=== PATIENT | male | born 1945 | race Caucasian/White ===

== ENCOUNTER 2019-06-11 12:49 | Outpatient (CLI) | payer MEDICARE, BC ==
[2019-06-11 13:08] LABS: BASOPHILS % (AUTO) 0.2 %; EOSINOPHILS # (AUTO) 0.4 10^3/uL (0.0-0.7); LYMPHOCYTES # (AUTO) 0.8 10^3/uL (1.5-3.5); LYMPHOCYTES % (AUTO) 18.2 %; MEAN CORPUSCULAR HEMOGLOBIN 28.9 pg (27.0-31.0); MEAN CORPUSCULAR HGB CONC 31.8 g/dL (32.0-36.0); MEAN CORPUSCULAR VOLUME 91.1 fL (80.0-94.0); MEAN PLATELET VOLUME 12.4 fL (7.4-11.4); MONOCYTES # (AUTO) 0.6 10^3/uL (0.0-1.0); MONOCYTES % (AUTO) 13.6 %; NEUTROPHILS # (AUTO) 2.4 10^3/uL (1.5-6.6); NEUTROPHILS % (AUTO) 57.3 %; PLT - PLATELET COUNT 135 10^3/uL (130-450); RED CELL DISTRIBUTION WIDTH 19.4 % (12.0-15.0); WHITE BLOOD COUNT 4.1 x10^3/uL (4.8-10.8)
[2019-06-11 13:50] LABS: ALBUMIN 3.7 g/dL (3.2-5.5); ALBUMIN/GLOBULIN RATIO 1.5 (1.0-2.2); BILIRUBIN,TOTAL 1.2 mg/dL (0.2-1.0); CALCIUM 8.5 mg/dL (8.5-10.3); CREATININE 1.2 mg/dL (0.6-1.2); TOTAL PROTEIN 6.1 g/dL (6.7-8.2)
[2019-06-13 15:30] LABS: ALBUMIN 3.4 g/dL (3.8-4.8); ALPHA 1 GLOBULIN 0.3 g/dL (0.2-0.3); ALPHA 2 GLOBULIN 0.8 g/dL (0.5-0.9); BETA 1 GLOBULIN 0.5 g/dL (0.4-0.6); BETA 2 GLOBULIN 0.4 g/dL (0.2-0.5); GAMMA GLOBULIN 0.2 g/dL (0.8-1.7)
== END 2019-06-11 12:50 | disposition home or self-care (01) ==
LOC: LAB 12:49
PROVIDERS: ATTEND Internal Medicine
DX: C90.00 Multiple myeloma not having achieved remission (principal)
CPT/HCPCS: 36415; 80053; 82784; 83883; 84155; 84165; 85025

== ENCOUNTER 2021-11-22 11:51 | Emergency (ER) | payer MEDICARE, BC ==
[2021-11-22] MEDS ORDERED: SODIUM CHLORIDE 0.9% 1,000 ML IV STA (11:55)
--- NOTE | 2021-11-22 11:55 | ED Physician Documentation ---
PD HPI SYNCOPE - Stated complaint Stated Complaint: SYNCOPL EPISODE - History obtained from History obtained from: Patient, Family - Additional information Additional information: 76-year-old gentleman with history of colon cancer in remission and active multiple myeloma on chemotherapy with bortezomib, daratumumab and hyaluronidase presents after a syncopal episode. He last got chemo 2 days ago and was over at the [facility] clinic for hydration for hypercalcemia. He was in the chair and passed out briefly. He came to and feels fine. There is no associated headache, shortness of breath, or chest pain. He was hypotensive to 79/46 at the [facility] clinic. He was not tachycardic. It was not associated with his IV placement. Review of Systems Ten Systems: 10 systems reviewed and negative Constitutional: reports: Fatigue, Weight Loss Cardiac: denies: Chest pain / pressure, Palpitations Respiratory: denies: Dyspnea, Cough GI: denies: Abdominal Pain, Nausea, Vomiting, Diarrhea PD PAST MEDICAL HISTORY - Past Medical History Cardiovascular: None Respiratory: None Neuro: None Endocrine/Autoimmune: None GI: None : None Psych: None Musculoskeletal: None Derm: None - Past Surgical History Ortho: Spine surgery - Present Medications Home Medications: Ambulatory Orders Medication Instructions Recorded Confirmed OLANZapine [Zyprexa] 5 mg PO HS 11/14/20 11/16/21 Potassium Chloride [K-Dur] 40 meq PO DAILY #14 tab 11/25/20 11/16/21 Valacyclovir HCl [Valtrex] 1 tab PO BID 11/14/21 11/16/21 Cyclobenzaprine [Flexeril] 10 mg PO TID PRN #20 tablet 11/22/21 - Allergies Allergies/Adverse Reactions: Allergies Allergy/AdvReac Type Severity Reaction Status Date / Time shellfish derived Allergy Unknown Verified 11/22/21 12:09 - Social History Smoking Status: Former smoker PD ED PE NORMAL - Vitals Vital signs reviewed: Yes - General General: Alert and oriented X 3, Other (Pale with alopecia) - HEENT HEENT: PERRL, EOMI - Neck Neck: Supple, no meningeal sign, No bony TTP - Cardiac Cardiac: RRR, No murmur - Respiratory Respiratory: No respiratory distress, Clear bilaterally - Abdomen Abdomen: Normal bowel sounds, Soft, Non tender - Back Back: No CVA TTP, No spinal TTP - Derm Derm: Normal color, Warm and dry - Extremities Extremities: No edema, No calf tenderness / cord - Neuro Neuro: Alert and oriented X 3, Normal speech Eye Opening: Spontaneous Motor: Obeys Commands Verbal: Oriented GCS Score: 15 Results - Vitals Vitals: Vital Signs - 24 hr 11/22/21 11/22/21 12:02 12:38 Temperature 36.6 C 36.5 C Heart Rate 88 87 Respiratory 16 14 Rate Blood Pressure 131/85 H 151/74 H O2 Saturation 100 98 Oxygen O2 Source Room air - EKG (time done) 1215 Rate: Rate (enter#) (76) Rhythm: NSR Red [place]: Normal Intervals: Normal WI, Wide QRS (borderline IVCD QRSD 114) QRS: Normal Ischemia: Normal ST segments - Labs Labs: Laboratory Tests 11/22/21 11/22/21 11/22/21 12:05 12:05 12:05 WBC 7.3 RBC 2.49 L Hgb 8.1 L Hct 23.5 L MCV 94.4 H MCH 32.5 H MCHC 34.5 RDW 18.3 H Plt Count 111 L MPV 9.3 Neut # (Auto) Not Reportable Lymph # (Auto) Not Reportable [place] # (Auto) Not Reportable Eos # (Auto) Not Reportable Baso # (Auto) Not Reportable Absolute Nucleated RBC Not Reportable Total Counted 100 Band Neuts % (Manual) 10 Abnorm Lymph % (Manual) 0 Metamyelocytes % 5 H Myelocytes % 9 H Nucleated RBC % Not Reportable Neutrophils # (Manual) 4.9 Lymphocytes # (Manual) 0.2 L Monocytes # (Manual) 1.2 H Eosinophils # (Manual) 0.0 Basophils # (Manual) 0.0 Nucleated RBCs 1 Differential Comment MANUAL DIFFERENTIAL Manual Slide Review Indicated Sodium 136 Potassium 3.6 Chloride 101 Carbon Dioxide 26 Anion Gap 9.0 BUN 31 H Creatinine 1.5 H Estimated GFR (MDRD) 45 L Glucose 124 H POC Whole Bld Glucose 123 H Calcium 11.6 H Magnesium 1.7 Total Bilirubin 0.5 AST 47 H ALT 12 Alkaline Phosphatase 96 Total Protein 6.3 L Albumin 3.5 Globulin 2.8 Albumin/Globulin Ratio 1.3 PD MEDICAL DECISION MAKING - ED course ED course: 76-year-old gentleman presents after syncopal episode while getting hydrated at the [facility] clinic for hypercalcemia related to multiple myeloma. He was hypotensive there but this was not corroborated here. Relatively unremarkable EKG. His H&H is dropping, likely from chemo. He has not had any stool changes except for constipation which she is treating at home. He has an appointment for repeat labs, Saturday which I think is appropriate. He is having a lot of back pain, he takes an occasional Percocet for that but tries to avoid it given the ongoing constipation. He already had reportedly negative x-rays per the . Will add Flexeril. Departure - Departure Disposition: Home, Self Care Clinical Impression: Syncope, Transient hypotension Condition: Good Record reviewed to determine appropriate education?: Yes Instructions: ED Fainting Unkn Cause Prescriptions: Cyclobenzaprine [Flexeril] 10 mg PO TID PRN #20 tablet PRN Reason: Spasms Comments: I sent your prescription electronically to the [facility] pharmacy here at the corner of [address] and [address] in the [facility]. Return for new or worsening symptoms. Repeat labs and oncology visit Saturday as per routine. Discharge Date/Time: 11/22/21 13:35
[2021-11-22 12:08] LABS: BASOPHILS % (AUTO) 0.3 %; EOSINOPHILS % (AUTO) 0.3 %; HCT - HEMATOCRIT 23.5 % (42.0-52.0); HGB - HEMOGLOBIN 8.1 g/dL (14.0-18.0); LYMPHOCYTES % (AUTO) 10.1 %; MEAN CORPUSCULAR HEMOGLOBIN 32.5 pg (27.0-31.0); MEAN CORPUSCULAR HGB CONC 34.5 g/dL (32.0-36.0); MEAN CORPUSCULAR VOLUME 94.4 fL (80.0-94.0); MEAN PLATELET VOLUME 9.3 fL (7.4-11.4); MONOCYTES % (AUTO) 16.8 %; NEUTROPHILS % (AUTO) 63.9 %; PLT - PLATELET COUNT 111 10^3/uL (130-450); RED BLOOD COUNT 2.49 10^6/uL (4.70-6.10); RED CELL DISTRIBUTION WIDTH 18.3 % (12.0-15.0); WHITE BLOOD COUNT 7.3 x10^3/uL (4.8-10.8)
[2021-11-22 12:12] LABS: SLIDE REVIEW? Indicated
[2021-11-22 12:21] LABS: ALBUMIN 3.5 g/dL (3.2-5.5); ALBUMIN/GLOBULIN RATIO 1.3 (1.0-2.2); BILIRUBIN,TOTAL 0.5 mg/dL (0.2-1.0); CALCIUM 11.6 mg/dL (8.5-10.3); CREATININE 1.5 mg/dL (0.6-1.2); MAGNESIUM 1.7 mg/dL (1.7-2.8); POTASSIUM 3.6 mmol/L (3.5-5.0); TOTAL PROTEIN 6.3 g/dL (6.7-8.2)
[2021-11-22 12:43] LABS: ABNORMAL LYMPHS % (MANUAL) 0 %
[2021-11-22 12:45] LABS: BAND NEUTROPHILS % (MANUAL) 10 %; DIFFERENTIAL COMMENT MANUAL DIFFERENTIAL; LYMPHOCYTES # (MANUAL) 0.2 10^3/uL (1.5-3.5); LYMPHOCYTES % (MANUAL) 3 %; METAMYELOCYTES % (MANUAL) 5 %; MONOCYTES # (MANUAL) 1.2 10^3/uL (0.0-1.0); MYELOCYTES % (MANUAL) 9 %; NEUTROPHILS # (MANUAL) 4.9 10^3/uL (1.5-6.6); NUCLEATED RBC (MANUAL) 1 %
[2021-11-22 12:48] VITALS: BP 151/74
== END 2021-11-22 13:35 | disposition home or self-care (01) ==
LOC: ED 11:51
DX: I95.89 Other hypotension (principal); R55 Syncope and collapse; Z87.891 Personal history of nicotine dependence
CPT/HCPCS: 36415; 80053; 83735; 85025; 93005; 96360; 99283

== ENCOUNTER 2021-12-04 18:57 | Inpatient (IN) | payer MEDICARE, BC ==
[2021-12-04] MEDS ORDERED: SODIUM CHLORIDE 0.9% 1,000 ML IV STA (19:11)
[2021-12-04 19:29] LABS: BASOPHILS % (AUTO) 0.6 %; EOSINOPHILS # (AUTO) 0.1 10^3/uL (0.0-0.7); HCT - HEMATOCRIT 24.1 % (42.0-52.0); HGB - HEMOGLOBIN 8.2 g/dL (14.0-18.0); LYMPHOCYTES # (AUTO) 1.1 10^3/uL (1.5-3.5); LYMPHOCYTES % (AUTO) 21.7 %; MEAN CORPUSCULAR HEMOGLOBIN 31.4 pg (27.0-31.0); MEAN CORPUSCULAR VOLUME 92.3 fL (80.0-94.0); MEAN PLATELET VOLUME 10.7 fL (7.4-11.4); MONOCYTES # (AUTO) 0.6 10^3/uL (0.0-1.0); MONOCYTES % (AUTO) 12.2 %; NEUTROPHILS # (AUTO) 2.8 10^3/uL (1.5-6.6); NRBC ABSOLUTE COUNT (AUTO) 0.02 x10^3/uL; NUCLEATED RED BLOOD CELLS AUTO 0.4 /100WBC; RED BLOOD COUNT 2.61 10^6/uL (4.70-6.10); RED CELL DISTRIBUTION WIDTH 17.7 % (12.0-15.0); WHITE BLOOD COUNT 5.3 x10^3/uL (4.8-10.8)
[2021-12-04 19:39] LABS: PLT - PLATELET COUNT 26 10^3/uL (130-450)
[2021-12-04 19:41] LABS: ALBUMIN 3.5 g/dL (3.2-5.5); BILIRUBIN,TOTAL 0.5 mg/dL (0.2-1.0); MAGNESIUM 2.5 mg/dL (1.7-2.8); POTASSIUM 4.8 mmol/L (3.5-5.0); TOTAL PROTEIN 6.9 g/dL (6.7-8.2)
[2021-12-04 19:43] LABS: CALCIUM 13.4 mg/dL (8.5-10.3)
[2021-12-04 19:56] LABS: SLIDE REVIEW? Indicated
[2021-12-04 20:11] LABS: DIFFERENTIAL COMMENT MANUAL=AUTO DIFF; PLATELET ESTIMATE, MANUAL DECREASED (<130,000) (NORMAL); PLATELET MORPHOLOGY NORMAL APPEARANCE (NORMAL)
--- NOTE | 2021-12-04 20:17 | ED Physician Documentation ---
History of Present Illness - Stated complaint Stated Complaint: HIGH CALCIUM,DEHYDRATED - Chief complaint Chief Complaint: General - History obtained from History obtained from: Patient - Additonal information Additional information: He has a history of multiple myeloma with recurrence, and is on daratumumab and Velcade. He has had troubles with hypercalcemia and thrombocytopenia and had labs done today and was referred here for elevated creatinine to 2.1 and calcium to 14. He already did get a liter of IV fluids in the clinic. He has been having ongoing back pain and there is still concern for that. Given his blood work earlier in the day he was referred here for further evaluation and treatment. His mentation has been pretty normal per the . The ongoing back pain is in the mid thoracic and upper lumbar spine and left ribs, worse with motion. Review of Systems Ten Systems: 10 systems reviewed and negative Constitutional: reports: Fatigue, Weight Loss Throat: denies: Sore throat Cardiac: denies: Chest pain / pressure, Palpitations Respiratory: denies: Dyspnea, Cough PD PAST MEDICAL HISTORY - Past Medical History Past Medical History: Yes Cardiovascular: None Respiratory: None Neuro: None Endocrine/Autoimmune: None GI: None : None Psych: None Musculoskeletal: None Derm: None Other Past Medical History: multiple myeloma - Past Surgical History Past Surgical History: Yes Ortho: Spine surgery - Present Medications Home Medications: Ambulatory Orders Medication Instructions Recorded Confirmed OLANZapine [Zyprexa] 5 mg PO HS 11/14/20 12/04/21 Potassium Chloride [K-Dur] 40 meq PO DAILY #14 tab 11/25/20 12/04/21 Valacyclovir HCl [Valtrex] 1 tab PO BID 11/14/21 12/04/21 Cyclobenzaprine [Flexeril] 10 mg PO TID PRN #20 tablet 11/22/21 12/04/21 oxyCODONE [Roxicodone] 5 mg PO Q6H PRN 15 Days #60 tablet 11/27/21 12/04/21 - Allergies Allergies/Adverse Reactions: Allergies Allergy/AdvReac Type Severity Reaction Status Date / Time No Known Drug Allergies Allergy Verified 12/04/21 19:29 - Social History Does the pt smoke?: No Smoking Status: Never smoker PD ED PE NORMAL - Vitals Vital signs reviewed: Yes - General General: Alert and oriented X 3, No acute distress - HEENT HEENT: PERRL, EOMI - Neck Neck: Supple, no meningeal sign, No bony TTP - Cardiac Cardiac: Other (Tachycardic but regular without murmur) - Respiratory Respiratory: No respiratory distress, Clear bilaterally - Abdomen Abdomen: Normal bowel sounds, Soft, Non tender - Back Back: No CVA TTP, Other (Tender to the lower thoracic and upper lumbar spine and left lower ribs) - Derm Derm: Normal color, Warm and dry - Extremities Extremities: No edema, No calf tenderness / cord - Neuro Neuro: Alert and oriented X 3, Normal speech Results - Vitals Vitals: Vital Signs - 24 hr 12/04/21 12/04/21 12/04/21 19:04 19:58 21:12 Temperature 37.1 C Heart Rate 114 H 105 H 110 H Respiratory 14 16 15 Rate Blood Pressure 127/58 L 134/68 H 143/85 H O2 Saturation 97 96 98 Oxygen O2 Source Room air - Labs Labs: Laboratory Tests 12/04/21 12/04/21 19:25 19:25 WBC 5.3 RBC 2.61 L Hgb 8.2 L Hct 24.1 L MCV 92.3 MCH 31.4 H MCHC 34.0 RDW 17.7 H Plt Count 26 L* MPV 10.7 Neut # (Auto) 2.8 Lymph # (Auto) 1.1 L [place] # (Auto) 0.6 Eos # (Auto) 0.1 Baso # (Auto) 0.0 Absolute Nucleated RBC 0.02 Band Neuts % (Manual) Not Reportable Abnorm Lymph % (Manual) Not Reportable Nucleated RBC % 0.4 Neutrophils # (Manual) Not Reportable Lymphocytes # (Manual) Not Reportable Monocytes # (Manual) Not Reportable Eosinophils # (Manual) Not Reportable Basophils # (Manual) Not Reportable Differential Comment MANUAL=AUTO DIFF Manual Slide Review Indicated Platelet Estimate DECREASED (<130,000) Platelet Morphology NORMAL APPEARANCE RBC Morph Micro Appear 1+ HYPOCHROMASIA Sodium 137 Potassium 4.8 Chloride 101 Carbon Dioxide 24 Anion Gap 12.0 BUN 34 H Creatinine 2.0 H Estimated GFR (MDRD) 32 L Glucose 225 H Calcium 13.4 H* Magnesium 2.5 Total Bilirubin 0.5 AST 62 H ALT 15 Alkaline Phosphatase 63 Total Protein 6.9 Albumin 3.5 Globulin 3.4 Albumin/Globulin Ratio 1.0 PD MEDICAL DECISION MAKING - ED course ED course: 76-year-old gentleman with multiple myeloma presents with outpatient labs with severe hypercalcemia although he is not too symptomatic from it. He was hydrated here and given the abnormalities he will be placed in observation for repeat labs and continued hydration. Spoke with Dr. Bray for this at 9:50 PM. Of note the patient is having ongoing back and rib pain and his oncologist had ordered CTs to evaluate but they were unable to get it scheduled and these were done with results pending on admission. Departure - Departure Disposition: ED Place in Observation Clinical Impression: Hypercalcemia, LANCE (acute kidney injury), Rib pain on left side, Back pain Multiple myeloma Qualifiers: Multiple myeloma remission status: in relapse Qualified Code(s): C90.02 - Multiple myeloma in relapse Condition: Serious Discharge Date/Time: 12/04/21 22:50
[2021-12-04] MEDS ORDERED: ACETAMINOPHEN 325 MG TABLET PO PRN (21:49)
[2021-12-04] MEDS ORDERED: ONDANSETRON 4 MG/2 ML VIAL IVP PRN (21:49)
[2021-12-04] MEDS ORDERED: ONDANSETRON ODT 4 MG TABLET TL PRN (21:49)
[2021-12-04] MEDS ORDERED: SODIUM CHLORIDE FLUSH 0.9% 10 ML SYRINGE IVP PRN (21:49)
--- NOTE | 2021-12-04 22:00 | HISTORY & PHYSICAL EXAMINATION ---
Chief Complaint - Chief Complaint Chief Complaint: Back pain History of Present Illness - Admitted From Admitted From:: Home - History Obtained From Records Reviewed: [facility] History obtained from: Patient, ER Physician, EMR - History of Present Illness HPI Comment/Other: Patient is a 76-year-old male with a past medical history significant for mul tiple myeloma in relapse, history of colon cancer in remission who presents today complaining of back pain and due to abnormal labs. He states he has had back pain now for the past week and he started taking oxycodone but has only been using this 1-2 times a day as he does not want potential side effects of narcotics. He states he has since begun to take it every 6 hours and his pain is much better controlled. He states his pain is predominantly in his lower back and around his bilateral ribs. He reports no numbness in his lower extremities. He has had prior surgical interventions in his spine due to the myeloma. He states he was contacted by his oncologist today due to abnormal labs and was told to come to the emergency department and to obtain further imaging due to his back pain to look for metastatic disease. The patient had relapse of his myeloma about 2 months ago when he was in [place] which is where he lives during the winter. He was hospitalized during that time due to acute kidney injury and concern for a pelvic abscess that required drainage. He now follows with Dr. Ortiz here at the [facility]. He is currently receiving treatment with DVd. Treatment was held today except for the Decadron because of thrombocytopenia which is relatively new over the past month. The patient has noticed some bruising in his left arm after an IV attempt recently but otherwise has not had any bleeding. He denies any hematuria, blood in his stool or mucosal bleeding. He states he generally feels okay today compared to the last few days given his pain is better controlled. Here in the Emergency Department, was noted his creatinine was elevated at 2.0 compared to his baseline of around 1.3. His calcium is also elevated at 13.4. He is anemic with a hemoglobin of 8.2 and his platelet count is in the 20s. He was given a liter of IV fluids. Given the acute kidney injury and hypercalcemia, medicine was consulted for admission. We discussed goals of care and he would like to be a full code at this time until he can discuss his prognosis further with his oncologist. History - Past Medical History Cardiovascular: reports: None Respiratory: reports: None Neuro: reports: None Endocrine/Autoimmune: reports: None GI: reports: Other (History of colon cancer status post hemicolectomy and chemotherapy. Now in remission.) : reports: None Psych: reports: None Musculoskeletal: reports: None Derm: reports: None MRSA Hx?: No Other Past Medical History: Relapsed multiple myeloma - Past Surgical History Ortho: reports: Spine surgery - Family & Social History Family History Comment/Other: He reports his mother was relatively healthy although she had a diagnosis of cancer late in her life. She at 97. Meds/Allgy - Home Medications Home Medications: Ambulatory Orders Medication Instructions Recorded Confirmed OLANZapine [Zyprexa] 5 mg PO HS 11/14/20 12/04/21 Potassium Chloride [K-Dur] 40 meq PO DAILY #14 tab 11/25/20 12/04/21 Valacyclovir HCl [Valtrex] 1 tab PO BID 11/14/21 12/04/21 Cyclobenzaprine [Flexeril] 10 mg PO TID PRN #20 tablet 11/22/21 12/04/21 oxyCODONE [Roxicodone] 5 mg PO Q6H PRN 15 Days #60 tablet 11/27/21 12/04/21 - Allergies Allergies/Adverse Reactions: Allergies Allergy/AdvReac Type Severity Reaction Status Date / Time No Known Drug Allergies Allergy Verified 12/04/21 19:29 Review of Systems - Constitutional Constitutional: reports: Fatigue, Poor appetite. denies: Fever, Chills - Ears, Nose & Throat Ears, Nose & Throat: denies: Nasal discharge, Nasal congestion - Cardiovascular Cariovascular: denies: Chest pain, Edema, Exertional dyspnea, Decr. exercise tolerance - Respiratory Respiratory: denies: Cough, SOB at rest, SOB with exertion - Gastrointestinal Gastrointestinal: reports: Constipation. denies: Abdominal pain, Diarrhea, Change in bowel habits, Black stools, Bloody stools, Nausea, Vomiting - Genitourinary Genitourinary: denies: Dysuria, Frequency, Urgency, Hematuria - Musculoskeletal Musculoskeletal: reports: Back pain, Joint pain. denies: Limited range of motion, Muscle weakness - Integumentary Integumentary: denies: Rash - Neurological Neurological: denies: Focal weakness, Numbness - Hematologic/Lymphatic Hematologic/Lymphatic: reports: Anemia, Bruising. denies: Bleeding tendencies Prior Level of Functionality: He is independent with his ADLs. Exam - Vital Signs Reviewed Vital Signs: Yes Vital Signs: Vital Signs x48h Temp Pulse Resp BP Pulse Ox 12/04/21 21:12 110 H 15 143/85 H 98 12/04/21 19:58 105 H 16 134/68 H 96 12/04/21 19:04 37.1 C 114 H 14 127/58 L 97 - Physical Exam General Appearance: positive: No acute distress, Alert Eyes Bilateral: positive: Normal inspection, Other (Conjuctival pallor) ENT: positive: Dry mucous membranes. negative: No signs of dehydration Respiratory: positive: No respiratory distress. negative: Wheezes, Rales Cardiovascular: positive: Regular rate & rhythm, No murmur. negative: Tachycardia Abdomen: positive: Non-tender, No distention. negative: Tenderness Back: positive: Other (Prior surgical incisions noted. No lumbar spine tenderne ss.) Skin: positive: Warm, Dry, Other (2 small areas of ecchymosis over the left upper extremity inferior to the elbow) Extremities: positive: No pedal edema Neurologic/Psychiatric: positive: Other (No focal deficits). negative: Disoriented to person, Disoriented to place, Disoriented to time Conclusion/Plan - Problem List (1) Hypercalcemia Conclusion/Plan: He presents with hypercalcemia with a calcium of 13.4. This is secondary to multiple myeloma. He does have constipation and is fatigued. We will place in observation and start him on IV fluids. We will give him a dose of Zometa. Recheck BMP in the morning. Suspect as long as it is improving and he can likely be discharged home. We will not check PTH or vitamin D level as the hypercalcemia is due to the myeloma. If he needs further IV hydration then he may be made inpatient status. There is no need for diuretics at this time given and he appears hypervolemic on exam without evidence of edema. (2) Multiple myeloma Conclusion/Plan: He unfortunately has relapse of the multiple myeloma now presents with hypercalcemia and worsening rib and spine pain likely due to the myeloma. We we will treat his hypercalcemia as mentioned above. He will need continued outpatient follow-up with Dr. Ortiz on discharge. We discussed that I suspect his prognosis is poor and I recommended outpatient follow-up with palliative care for which he and his are agreeable to. Qualifiers: Multiple myeloma remission status: in relapse Qualified Code(s): C90.02 - Multiple myeloma in relapse (3) LANCE (acute kidney injury) Conclusion/Plan: His creatinine is elevated at 2.0. His baseline appears to be around 1.3 although his creatinine has been slowly increasing over the past. This is likely due to the hypercalcemia as well as the multiple myeloma. We will treat him with IV fluids and recheck renal function in the morning. We will check a renal ultrasound to evaluate for obstruction. Avoid nephrotoxins. (4) Back pain Conclusion/Plan: He has pain in his spine and ribs likely due to the myeloma. Imaging with a CT of the chest and lumbar spine has been ordered and is pending. We will manage h is pain with Tylenol and oxycodone as needed. (5) Colon cancer Conclusion/Plan: He has a history of colon cancer status post hemicolectomy and chemotherapy back in 2019. This is now in remission. Qualifiers: Colon location: unspecified part of colon Qualified Code(s): C18.9 - Malignant neoplasm of colon, unspecified (6) Anemia Conclusion/Plan: This is secondary to the multiple myeloma/anemia of chronic debase. His iron studies did not suggest iron deficiency and his ferritin was quite elevated. His hemoglobin is stable without evidence of bleeding. We will obtain a type and screen but we will transfuse for goal hemoglobin greater than 7. (7) Thrombocytopenia Conclusion/Plan: This is secondary to the myeloma and has been trending down over the past month. His platelet count today is 26. We will continue to monitor for evidence of bleeding and transfuse as needed. (8) Hyperglycemia Conclusion/Plan: His blood glucose is greater than 200. He denies history of diabetes. We will place him on a carb controlled diet and sliding scale. Check A1c. - Lab Results Lab results reviewed: Yes Fish Bones: 12/04/21 19:25 12/04/21 19:25 Core Measures - Anticipated LOS I expect patient to be DC'd or transferred within 96 hours.: Yes - Issues Hospital Issues and Management Plan: 76-year-old male with history of multiple myeloma that has relapsed presents with hypercalcemia and acute kidney injury. We will place in observation for IV fluids and zoledronic acid. - DVT/VTE - Prophylaxis VTE/DVT Device ordered at admit?: Yes VTE/DVT Prophylaxis med ordered at admit?: No Not Ordered - Medical Reason: Contraindicated
--- NOTE | 2021-12-04 22:53 | CT Report ---
PROCEDURE: CHEST WO INDICATIONS: Back and rib pain, multiple myeloma TECHNIQUE: Noncontrast 1mm axial images were acquired from the pulmonary apices to the posterior costophrenic an gles. Axial 5 mm soft tissue kernel reconstructions were performed as well as 8 mm axial MIP and cor onal and sagittal 5 mm reformations. For radiation dose reduction, the following was used: automate d exposure control, adjustment of mA and/or kV according to patient size. COMPARISON: Chest CT 01/30/2021. FINDINGS: Image quality: There is metallic streak artifact from patient's surgical hardware limiting evaluation . Lungs and pleura: There is dependent atelectasis bilaterally. No pleural effusions or pneumothorax. Central and peripheral airways are patent and normal in caliber. Mediastinum: Heart size is normal. No pericardial effusion. No mediastinal adenopathy by size crit eria. Thoracic aorta and central pulmonary arteries are normal in size. Esophagus is normal in [place]. No hiatal hernia. Bones and chest wall: Postsurgical changes are redemonstrated status post posterior fixation in the thoracic spine at T2-T8 with posterior fixation rods and bilateral pedicle screws. There is bone ceme nt within the T5 vertebral body. No acute fractures or subluxation. No new vertebral body compression fractures. Numerous lytic lesions are demonstrated throughout the visualized osseous structures cons istent with history of multiple myeloma. These include an expansile lesion with associated bony destr uction and the right posterior eighth rib with an associated extraosseous mass component measuring ap proximately 3.3 x 2.0 cm on series 3 image 47. This involves the right posterior chest wall with exte nsion along the posterior right lower lobe. No axillary or supraclavicular adenopathy by size criteri a. Abdomen: Visualized upper abdomen demonstrates a cystic lesion in the left upper quadrant likely rep resenting a partially visualized exophytic left renal cyst. IMPRESSION: 1. Expansile osseous lesion within the right posterior eighth rib with associated bony destruction an d an extraosseous soft tissue mass extending into the right posterior chest wall and along the right lower lobe. 2. Numerous lytic lesions demonstrated throughout the visualized osseous structures consistent with h istory of multiple myeloma. 3. Extensive postsurgical changes redemonstrated within the thoracic spine. No definite acute girish azeem fractures. Reviewed by: Jeffrey Balderrama MD on 12/04/2021 10:52 PM PDT Approved by: Jeffrey Balderrama MD on 12/04/2021 10:52 PM PDT Station ID: [id number]
--- NOTE | 2021-12-04 22:58 | CT Report ---
PROCEDURE: THORACIC SPINE WO INDICATIONS: multiple myeloma back pain TECHNIQUE: Noncontrast 2 mm thick sections acquired through the region of interest in the thoracic spine. Sagit darren and coronal reformats were then constructed. For radiation dose reduction, the following was used : automated exposure control, adjustment of mA and/or kV according to patient size. COMPARISON: Concurrent CT of the chest. FINDINGS: Image quality: There is metallic streak artifact from patient's surgical hardware. Bones: Postsurgical changes are redemonstrated status post posterior fixation at T2-T8 with posterior fixation rods and bilateral pedicle screws except at T5 where there is bone cement redemonstrated in the vertebral body. No definite acute vertebral compression fractures. Numerous lytic lesions are de monstrated throughout the visualized osseous structures consistent with history of multiple myeloma. There is an expansile destructive lesion in the right posterior eighth rib with an associated extraos seous mass components involving the right posterior chest wall. Soft tissues: No paravertebral masses or hematomas. Visualized posteromedial lungs demonstrate mild dependent atelectasis. IMPRESSION: 1. Extensive postsurgical changes within the thoracic spine as described. No definite new spinal comp ression fractures. 2. Numerous lytic lesions throughout the visualized osseous structures consistent with history of mul tiple myeloma. 3. 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 Reviewed by: Jeffrey Balderrama MD on 12/04/2021 10:57 PM PDT Approved by: Jeffrey Balderrama MD on 12/04/2021 10:57 PM PDT Station ID: [id number]
--- NOTE | 2021-12-04 23:08 | CT Report ---
PROCEDURE: LUMBAR SPINE WO INDICATIONS: Back and rib pain, multiple myeloma TECHNIQUE: Noncontrast 3 mm thick sections acquired from the T12 level to the sacrum. Sagittal and coronal refo rmats were constructed. For radiation dose reduction, the following was used: automated exposure co ntrol, adjustment of mA and/or kV according to patient size. COMPARISON: CT abdomen pelvis 01/30/2021. FINDINGS: Image quality: Excellent. Bones: There is minimal retrolisthesis at T12-L1, L1-L2, L2-L3. Findings are similar to the prior st udy. No acute vertebral body compression fractures. Numerous lytic lesions are demonstrated througho ut the visualized osseous structures consistent with history of multiple myeloma. There is partial fu azeem of the L5-S1 disc space. Remaining disc spaces demonstrate mild to moderate degeneration. There is also mild facet arthropathy in the lower lumbar spine. Central spinal caliber is of normal overall caliber. No pars defects. Soft tissues: No retroperitoneal masses or hematomas. Visualized aorta is normal in caliber. The vi sualized heart demonstrates a small pericardial effusion. There are 2 cysts redemonstrated within the visualized liver. There are 2 lacerations stones within each kidney with the largest stone in the ri ght kidney measuring up to 0.8 cm and demonstrating attenuation values of approximately 600-700 Houns field units. Largest stone in the left kidney measures up to 0.5 cm with attenuation values of approx imately 300-400 Hounsfield units. There is a large exophytic cyst extending superiorly from a left ki dney measuring up to 3.2 cm. There are postsurgical changes within the colon. Moderate colonic stool is present is present within the visualized colon suggestive of constipation or obstipation. No evide nce of small bowel obstruction. Colonic diverticulosis is noted. There is a small bladder diverticulu m along the right bladder dome. IMPRESSION: 1. Numerous lytic lesions throughout the visualized osseous structures consistent with history of mul tiple myeloma. No definite acute compression fractures. 2. 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 3. Bilateral nephrolithiasis within the visualized kidneys without evidence of hydronephrosis. 4. Moderate stool distention of the visualized colon suggestive of constipation or obstipation. No de finite evidence of bowel obstruction. Reviewed by: Jeffrey Huntley MD on 12/04/2021 11:07 PM PDT Approved by: Jeffrey Huntley MD on 12/04/2021 11:07 PM PDT Station ID: [id number]
[2021-12-04 23:22] LABS: B. PARAPERTUSSIS- RESP PCR PAN NOT DETECTED; B. PERTUSSIS- RESP PCR PANEL NOT DETECTED; C. PNEUMONIAE- RESP PCR PANEL NOT DETECTED; CORONAVIRUS 229E-RESP PCR NOT DETECTED; CORONAVIRUS HKU1-RESP PCR NOT DETECTED; CORONAVIRUS NL63-RESP PCR NOT DETECTED; CORONAVIRUS OC43-RESP PCR NOT DETECTED; HUMAN METAPNEUMOVIRUS NOT DETECTED; INFLUENZA A- RESP PCR PANEL NOT DETECTED; INFLUENZA B - RESP PCR PANEL NOT DETECTED; M. PNEUMONIAE- RESP PCR PANEL NOT DETECTED; PARAINFLUENZA VIRUS 1 NOT DETECTED; PARAINFLUENZA VIRUS 2 NOT DETECTED; PARAINFLUENZA VIRUS 3 NOT DETECTED; PARAINFLUENZA VIRUS 4 NOT DETECTED; RHINOVIRUS/ENTEROVIRUS NOT DETECTED; RSV- RESP PCR PANEL NOT DETECTED; SARS-CoV-2 -RESP PCR PANEL NOT DETECTED
[2021-12-05] MEDS: LACTATED RINGERS 1,000 ML IV SCH ×4 (00:21→22:03)
[2021-12-05] MEDS: oxyCODONE 5 MG TABLET PO PRN ×5 (00:22→23:54)
[2021-12-05] MEDS: SODIUM CHLORIDE FLUSH 0.9% 10 ML SYRINGE IVP SCH ×3 (00:22→17:38)
[2021-12-05] MEDS ORDERED: ZOLEDRONIC ACID 3 MG in SODIUM CHLORIDE 0.9% 100ML 100 ML IV ONE ×2 (01:00→08:00)
[2021-12-05 06:14] LABS: BASOPHILS % (AUTO) 0.2 %; EOSINOPHILS % (AUTO) 0.4 %; HCT - HEMATOCRIT 20.8 % (42.0-52.0); LYMPHOCYTES % (AUTO) 16.3 %; MEAN CORPUSCULAR HEMOGLOBIN 31.4 pg (27.0-31.0); MEAN CORPUSCULAR HGB CONC 33.2 g/dL (32.0-36.0); MEAN CORPUSCULAR VOLUME 94.5 fL (80.0-94.0); MONOCYTES % (AUTO) 22.8 %; NEUTROPHILS % (AUTO) 51.1 %; WHITE BLOOD COUNT 5.2 x10^3/uL (4.8-10.8)
[2021-12-05 06:26] LABS: CALCIUM 11.9 mg/dL (8.5-10.3); CREATININE 1.6 mg/dL (0.6-1.2); MAGNESIUM 2.2 mg/dL (1.7-2.8); PHOSPHORUS 3.6 mg/dL (2.5-4.6); POTASSIUM 4.6 mmol/L (3.5-5.0)
[2021-12-05 06:35] LABS: HGB - HEMOGLOBIN 6.9 g/dL (14.0-18.0)
[2021-12-05 06:36] LABS: ABNORMAL LYMPHS % (MANUAL) 0 %; PLT - PLATELET COUNT 21 10^3/uL (130-450)
[2021-12-05 06:40] LABS: BAND NEUTROPHILS % (MANUAL) 8 %; EOSINOPHILS # (MANUAL) 0.1 10^3/uL (0-0.7); LYMPHOCYTES % (MANUAL) 20 %; MONOCYTES # (MANUAL) 0.7 10^3/uL (0.0-1.0); MYELOCYTES % (MANUAL) 2 %; NEUTROPHILS # (MANUAL) 3.3 10^3/uL (1.5-6.6)
[2021-12-05 06:41] LABS: DIFFERENTIAL COMMENT MANUAL DIFFERENTIAL; PLATELET ESTIMATE, MANUAL DECREASED (<130,000) (NORMAL); PLATELET MORPHOLOGY NORMAL APPEARANCE (NORMAL); WBC MORPHOLOGY (MULTIPLE) NORMAL APPEARANCE (NORMAL)
[2021-12-05] MEDS: INSULIN ASPART 300 UNIT/3 ML PEN SUBQ SCH ×4 (08:45→22:02)
[2021-12-05] MEDS: polyethylene glycoL 3350 17 GM PACKET PO SCH (09:31)
[2021-12-05] MEDS: valACYclovir 500 MG TABLET PO SCH ×2 (09:31→22:03)
[2021-12-05] MEDS ORDERED: BISACODYL 10 MG SUPP PR PRN (10:47)
[2021-12-05 12:56] LABS: ESTIMATED AVERAGE GLUCOSE 128 mg/dL (70-100); HEMOGLOBIN A1c% 6.1 % (4.27-6.07)
--- NOTE | 2021-12-05 15:19 | CONSULTATION NOTE ---
Palliative Care Consultation - Referral Referring Provider: Dr. Catrachita Saucedo Time of Visit: [id number] Referral setting: Hospitalized patient Referral Reason: Pain of neoplastic origin/Constipation/MM/Goals of Care - Information Sources Records reviewed: Previous records reviewed History/Review of Systems obtained from: Patient, Family ( Marilyn Vincent) Exam limitations: No limitations - History of Present Illness Brief History of Present Illness: This is a paul 76-year-old gentleman multiple myeloma, currently in relapse. Patient's original diagnosis was 02/2019. He was on maintenance Revlimid and dexamethasone until 04/2020. Has restarted treatment, is awaiting cycle #3, unfortunately presented with hypercalcemia and worsening renal failure and unable to receive this week. Unfortunately during this time period, patient has had 3-1/2 weeks of increasing pain, has been having decreasing functional status regarding this, as well as his prolonged hospitalizations regarding his abscess. He has currently been taking oxycodone 5 mg every 6 hours, since hospitalization every 4 with better pain control. Good energy is long-acting medication and need for aggressive pain management. Patient was able to receive CT scan, did not show any acute vertebral body compression fractures, but did show numerous lytic lesions throughout osseous structures consistent with multiple myeloma, also showed an expansile osseous lesion within the right posterior eighth rib with associated bone destruction and an extraosseous soft tissue mass extending into the right posterior chest wall along right lower lobe. This measures approximately 3.3 x 2.0 cm. Patient describes his pain as "traveling". Though most acutely has been in his upper right back. Patient's original presentation for his multiple myeloma actually was in 2018 with back pain and difficulty walking, he had a T5 spinal and paraspinal lesion at that time, and underwent a debulking surgery. Patient also has been diagnosed with stage IIIc right-sided colon cancer with perforation 04/2020, received a right-sided hemicolectomy in [place], with 6 out of 14 positive nodes and negative upper lobe lung biopsy from metastatic disease. He did receive adjuvant chemotherapy for this. Patient has had more complications in the context of developed an perirectal abscess, with 2 significant hospitalizations with the first 03/30. These included I&D of the abscess, as well as needing a wound VAC for 4 weeks. He is almost healed at this point in time, and is having follow-up with wound care closely here. has been providing the dressing changes,Unclear the underlying etiology initially. Fortunately with all these complications, patient has had significant decline in functional status, weight loss from 1 90 to 1 76. Reports pain and decreased appetite, as well as early satiety have influenced his weight loss. Recurrent hypercalcemia related to his multiple myeloma, and difficulty with staying hydrated has impacted his overall quality of life and with generalized weakness, muscle weakness related to weight loss and decreased activity/deconditioning increasing both patient and 's concern. Palliative care has been referred to assist with goals of care, pain and symptom management, as well as coordination of care. Medical/Surgical History - Past Medical History Cardiovascular: reports: None Respiratory: reports: None Neuro: None Endocrine/Autoimmune: reports: None GI: reports: Other (History of colon cancer status post hemicolectomy and chemotherapy. Now in remission.) : reports: None Psych: reports: None Musculoskeletal: reports: Fatigue, Other (lytic lesions from MM) Derm: reports: None MRSA Hx?: No - Past Surgical History Ortho: reports: Spine surgery - Substance History Use: Uses substance without health or social issues: NONE Social History - Living Situation Living arrangement: At home Living Situation: With spouse/s.o. Support System: Patient and have been for 59 years, [place] and a child who is passed. They have 2 homes, often go to [place] in the [place], and staying on [facility] in the [place]. He retired in 2011. Do not have extensive community here. Family History - Family History Family History: Mother: , Cancer, Father: Medications/Allergies - Medications Active Medication List: Active Medications Acetaminophen (Acetaminophen 325 Mg Tablet) 650 mg PO Q4HR PRN PRN Reason: Pain 1 to 4, or Fever Bisacodyl (Bisacodyl 10 Mg Supp) 10 mg UT DAILY PRN PRN Reason: Constipation Lactated Ringer's (Lr) 1,000 mls @ 150 mls/hr IV .Q6H40M JOCELYN Last Admin: 12/05/21 13:11 Dose: 150 mls/hr Insulin Aspart (Insulin Aspart 300 Unit/3 Ml Pen) 1 - 5 unit SUBQ 0800,1200,1700,2100 JOCELYN; Protocol Last Admin: 12/05/21 11:29 Dose: Not Given Ondansetron HCl (Ondansetron Odt 4 Mg Tablet) 4 mg TL Q6HR PRN PRN Reason: Nausea / Vomiting Ondansetron HCl (Ondansetron 4 Mg/2 Ml Vial) 4 mg IVP Q6HR PRN PRN Reason: Nausea / Vomiting Oxycodone HCl (Oxycodone 5 Mg Tablet) 5 mg PO Q4HR PRN PRN Reason: Pain 5 to 7 Last Admin: 12/05/21 12:26 Dose: 5 mg Polyethylene Glycol (Polyethylene Glycol 3350 17 Gm Packet) 17 gm PO DAILY [facility] Last Admin: 12/05/21 09:31 Dose: 17 gm Sodium Chloride (Sodium Chloride Flush 0.9% 10 Ml Syringe) 10 ml IVP PRN PRN PRN Reason: NEEDED PER PROVIDER ORDERS Sodium Chloride (Sodium Chloride Flush 0.9% 10 Ml Syringe) 10 ml IVP 0100,0900,1700 [facility] Last Admin: 12/05/21 11:29 Dose: Not Given Valacyclovir HCl (Valacyclovir 500 Mg Tablet) 500 mg PO BID [facility] Last Admin: 12/05/21 09:31 Dose: 500 mg OLANZapine [Zyprexa] 5 mg PO HS 11/14/20 Valacyclovir HCl [Valtrex] 1 tab PO BID 11/14/21 - Allergies Allergies/Adverse Reactions: Allergies Allergy/AdvReac Type Severity Reaction Status Date / Time No Known Drug Allergies Allergy Verified 12/04/21 19:29 Review of Systems - Constitutional Constitutional: reports: Fatigue, Weakness, Poor appetite, Weight loss (190 with healthy weight/ 176) - Ears, Nose & Throat Ears, Nose & Throat: reports: Dry mouth - Cardiovascular Cardiovascular: reports: Lightheadedness, Exertional dyspnea, Decr. exercise t olerance. denies: Edema - Respiratory Respiratory: reports: SOB with exertion. denies: SOB at rest - Gastrointestinal Gastrointestinal: reports: Constipation, Nausea, Poor appetite - Musculoskeletal Musculoskeletal: reports: Back pain, Muscle aches, Stiffness, Muscle weakness, Assistive devices (walker) - Integumentary Integumentary: reports: Dryness - Neurological Neurological: reports: General weakness, Memory problems (with increased calcium) - Psychiatric Psychiatric: reports: Anxiety. denies: Depression - Hematologic/Lymphatic Hematologic/Lymph: reports: Anemia, Bruising, Recurrent infections (rectal abcess improved) - All Other Systems All Other Systems: reports: Reviewed and negative Physical Exam - Vital Signs Vital Signs: Vital Signs x48h Temp Pulse Resp BP Pulse Ox 12/05/21 11:33 36.3 C L 103 H 16 133/55 H 97 12/05/21 08:27 36.6 C 107 H 18 150/67 H 94 - Physical Exam General Appearance: positive: Alert Eyes Bilateral: positive: Normal inspection Neck: positive: Trachea midline Respiratory: positive: No respiratory distress Abdomen: positive: Soft Skin: positive: Pallor, Dryness, Wound (pic in chart) Extremities: positive: No pedal edema Neurologic/Psychiatric: positive: Oriented x3, Mood/affect nml, Flat affect Palliative Care - POLST Patient has POLST: No Pain: Pain improved, Location (travels; back pain better with oxycodone) Feelings of wellbeing/Perceived Quality of Life: Worsening Sleep: Variable sleep pattern Constipation: Yes, Opoid induced, Unmanaged Performance Status: Patient's with stairs to get in the house, can managed to 3. Patient bedroom is upstairs, patient currently sleeping downstairs secondary to difficulty to maneuver stairs with lower extremity weakness. appropriately concerned regarding fall risk, patient has had physical therapy at home in the past. Patient's goals include improving functional status, regaining some independence. Patient has had muscle wasting and muscle loss.Currently over the last few days has needed more assistance. Would benefit from home therapy, for fall prevention, equipment recommendations, we discussed obtaining hospital bed until patient able to get up stairs safely. - Palliative Care Discussion: Introduced role of palliative care, patient and appropriately anxious given the last few months. Patient with little understanding of his current prognosis or long-term treatment plan, this would be important information, reports it feels "iffy with me". Both patient and appropriately concerned about patient's decline, discussed, and improved quality of life. Patient reports he incorporates other kinds of support and healthcare, has in the past take supplements, but understands needs to clear this with oncology secondary to interactions. He does chiropractic work, as well as going to work. We discussed the role of palliative care for support for pain and symptom management.We discussed how he best receives information, and feels that is helpful for him for planning to have even if it is bad news, discussed goal of palliative care can help facilitate some of those conversations if needed for goals in the future. Current goals include avoiding further hospitalization, improved strength, improved quality of life with better pain management, and support for independence. Results - Lab Results Lab results reviewed: Yes Fish Bones: 12/05/21 04:53 12/05/21 04:53 Lab and Imaging Results: Lab Results x24hrs 12/05/21 12/05/21 12/05/21 Range/Units 11:19 08:21 07:19 WBC (4.8-10.8) x10^3/uL RBC (4.70-6.10) 10^6/uL Hgb (14.0-18.0) g/dL Hct (42.0-52.0) % MCV (80.0-94.0) fL MCH (27.0-31.0) pg MCHC (32.0-36.0) g/dL RDW (12.0-15.0) % Plt Count (130-450) 10^3/uL MPV (7.4-11.4) fL Neut # (Auto) (1.5-6.6) 10^3/uL Lymph # (Auto) (1.5-3.5) 10^3/uL Montgomery # (Auto) (0.0-1.0) 10^3/uL Eos # (Auto) (0.0-0.7) 10^3/uL Baso # (Auto) (0.0-0.1) 10^3/uL Absolute Nucleated RBC x10^3/uL Total Counted Band Neuts % (Manual) Abnorm Lymph % (Manual) Myelocytes % ( - 0) % Nucleated RBC % /100WBC Neutrophils # (Manual) Lymphocytes # (Manual) Monocytes # (Manual) Eosinophils # (Manual) Basophils # (Manual) Differential Comment Manual Slide Review WBC Morphology (NORMAL) Platelet Estimate (NORMAL) Platelet Morphology (NORMAL) RBC Morph Micro Appear (NORMAL) Sodium (135-145) mmol/L Potassium (3.5-5.0) mmol/L Chloride (101-111) mmol/L Carbon Dioxide (21-32) mmol/L Anion Gap (6-13) BUN (6-20) mg/dL Creatinine (0.6-1.2) mg/dL Estimated GFR (MDRD) (>89) Glucose (70-100) mg/dL POC Whole Bld Glucose 114 H 113 H (70 - 100) mg/dL Estimat Average Glucose (70-100) mg/dL Hemoglobin A1c % (4.27-6.07) % Calcium (8.5-10.3) mg/dL Phosphorus (2.5-4.6) mg/dL Magnesium (1.7-2.8) mg/dL Total Bilirubin (0.2-1.0) mg/dL AST (10-42) IU/L ALT (10-60) IU/L Alkaline Phosphatase (42-121) IU/L Total Protein (6.7-8.2) g/dL Albumin (3.2-5.5) g/dL Globulin (2.1-4.2) g/dL Albumin/Globulin Ratio (1.0-2.2) Nasal Adenovirus (PCR) Nasal B. parapertussis DNA (PCR) Nasal Coronavir 229E PCR Nasal Coronavir HKU1 PCR Nasal Coronavir NL63 PCR Nasal Coronavir OC43 PCR Nasal Enterovir/Rhinovir PCR Nasal Influenza B PCR Nasal Influenza A PCR Nasal Parainfluen 1 PCR Nasal Parainfluen 2 PCR Nasal Parainfluen 3 PCR Nasal Parainfluen 4 PCR Nasal RSV (PCR) Nasal B.pertussis DNA PCR Nasal C.pneumoniae (PCR) Lalo Human Metapneumo PCR Nasal M.pneumoniae (PCR) Nasal SARS-CoV-2 (PCR) Blood Type Blood Type Recheck A POSITIVE Antibody Screen TANI, IgG Specific TANI, Polyspecific TANI, C3d Specific Crossmatch IS Only 12/05/21 12/05/21 12/05/21 Range/Units 04:53 04:53 04:53 WBC (4.8-10.8) x10^3/uL RBC (4.70-6.10) 10^6/uL Hgb (14.0-18.0) g/dL Hct (42.0-52.0) % MCV (80.0-94.0) fL MCH (27.0-31.0) pg MCHC (32.0-36.0) g/dL RDW (12.0-15.0) % Plt Count (130-450) 10^3/uL MPV (7.4-11.4) fL Neut # (Auto) (1.5-6.6) 10^3/uL Lymph # (Auto) (1.5-3.5) 10^3/uL Montgomery # (Auto) (0.0-1.0) 10^3/uL Eos # (Auto) (0.0-0.7) 10^3/uL Baso # (Auto) (0.0-0.1) 10^3/uL Absolute Nucleated RBC x10^3/uL Total Counted Band Neuts % (Manual) Abnorm Lymph % (Manual) Myelocytes % ( - 0) % Nucleated RBC % /100WBC Neutrophils # (Manual) Lymphocytes # (Manual) Monocytes # (Manual) Eosinophils # (Manual) Basophils # (Manual) Differential Comment Manual Slide Review WBC Morphology (NORMAL) Platelet Estimate (NORMAL) Platelet Morphology (NORMAL) RBC Morph Micro Appear (NORMAL) Sodium 133 L (135-145) mmol/L Potassium 4.6 (3.5-5.0) mmol/L Chloride 101 (101-111) mmol/L Carbon Dioxide 24 (21-32) mmol/L Anion Gap 8.0 (6-13) BUN 33 H (6-20) mg/dL Creatinine 1.6 H (0.6-1.2) mg/dL Estimated GFR (MDRD) 42 L (>89) Glucose 129 H (70-100) mg/dL POC Whole Bld Glucose (70 - 100) mg/dL Estimat Average Glucose 128 H (70-100) mg/dL Hemoglobin A1c % 6.1 H (4.27-6.07) % Calcium 11.9 H (8.5-10.3) mg/dL Phosphorus 3.6 (2.5-4.6) mg/dL Magnesium 2.2 (1.7-2.8) mg/dL Total Bilirubin (0.2-1.0) mg/dL AST (10-42) IU/L ALT (10-60) IU/L Alkaline Phosphatase (42-121) IU/L Total Protein (6.7-8.2) g/dL Albumin (3.2-5.5) g/dL Globulin (2.1-4.2) g/dL Albumin/Globulin Ratio (1.0-2.2) Nasal Adenovirus (PCR) Nasal B. parapertussis DNA (PCR) Nasal Coronavir 229E PCR Nasal Coronavir HKU1 PCR Nasal Coronavir NL63 PCR Nasal Coronavir OC43 PCR Nasal Enterovir/Rhinovir PCR Nasal Influenza B PCR Nasal Influenza A PCR Nasal Parainfluen 1 PCR Nasal Parainfluen 2 PCR Nasal Parainfluen 3 PCR Nasal Parainfluen 4 PCR Nasal RSV (PCR) Nasal B.pertussis DNA PCR Nasal C.pneumoniae (PCR) Lalo Human Metapneumo PCR Nasal M.pneumoniae (PCR) Nasal SARS-CoV-2 (PCR) Blood Type A POSITIVE Blood Type Recheck Antibody Screen POSITIVE TANI, IgG Specific POSITIVE TANI, Polyspecific Not Reportable TANI, C3d Specific NEGATIVE Crossmatch IS Only See Detail 12/05/21 12/04/21 12/04/21 Range/Units 04:53 21:50 19:25 WBC 5.2 (4.8-10.8) x10^3/uL RBC 2.20 L (4.70-6.10) 10^6/uL Hgb 6.9 L* (14.0-18.0) g/dL Hct 20.8 L (42.0-52.0) % MCV 94.5 H (80.0-94.0) fL MCH 31.4 H (27.0-31.0) pg MCHC 33.2 (32.0-36.0) g/dL RDW 18.0 H (12.0-15.0) % Plt Count 21 L* (130-450) 10^3/uL MPV TNP (7.4-11.4) fL Neut # (Auto) Not Reportable (1.5-6.6) 10^3/uL Lymph # (Auto) Not Reportable (1.5-3.5) 10^3/uL Montgomery # (Auto) Not Reportable (0.0-1.0) 10^3/uL Eos # (Auto) Not Reportable (0.0-0.7) 10^3/uL Baso # (Auto) Not Reportable (0.0-0.1) 10^3/uL Absolute Nucleated RBC Not Reportable x10^3/uL Total Counted 100 Band Neuts % (Manual) 8 Abnorm Lymph % (Manual) 0 Myelocytes % 2 H ( - 0) % Nucleated RBC % Not Reportable /100WBC Neutrophils # (Manual) 3.3 Lymphocytes # (Manual) 1.0 L Monocytes # (Manual) 0.7 Eosinophils # (Manual) 0.1 Basophils # (Manual) 0.0 Differential Comment MANUAL DIFFERENTIAL Manual Slide Review WBC Morphology NORMAL APPEARANCE (NORMAL) Platelet Estimate DECREASED (<130,000) (NORMAL) Platelet Morphology NORMAL APPEARANCE (NORMAL) RBC Morph Micro Appear 1+ MICROCYTOSIS (NORMAL) Sodium 137 (135-145) mmol/L Potassium 4.8 (3.5-5.0) mmol/L Chloride 101 (101-111) mmol/L Carbon Dioxide 24 (21-32) mmol/L Anion Gap 12.0 (6-13) BUN 34 H (6-20) mg/dL Creatinine 2.0 H (0.6-1.2) mg/dL Estimated GFR (MDRD) 32 L (>89) Glucose 225 H (70-100) mg/dL POC Whole Bld Glucose (70 - 100) mg/dL Estimat Average Glucose (70-100) mg/dL Hemoglobin A1c % (4.27-6.07) % Calcium 13.4 H* (8.5-10.3) mg/dL Phosphorus (2.5-4.6) mg/dL Magnesium 2.5 (1.7-2.8) mg/dL Total Bilirubin 0.5 (0.2-1.0) mg/dL AST 62 H (10-42) IU/L ALT 15 (10-60) IU/L Alkaline Phosphatase 63 (42-121) IU/L Total Protein 6.9 (6.7-8.2) g/dL Albumin 3.5 (3.2-5.5) g/dL Globulin 3.4 (2.1-4.2) g/dL Albumin/Globulin Ratio 1.0 (1.0-2.2) Nasal Adenovirus (PCR) NOT DETECTED Nasal B. parapertussis DNA (PCR) NOT DETECTED Nasal Coronavir 229E PCR NOT DETECTED Nasal Coronavir HKU1 PCR NOT DETECTED Nasal Coronavir NL63 PCR NOT DETECTED Nasal Coronavir OC43 PCR NOT DETECTED Nasal Enterovir/Rhinovir PCR NOT DETECTED Nasal Influenza B PCR NOT DETECTED Nasal Influenza A PCR NOT DETECTED Nasal Parainfluen 1 PCR NOT DETECTED Nasal Parainfluen 2 PCR NOT DETECTED Nasal Parainfluen 3 PCR NOT DETECTED Nasal Parainfluen 4 PCR NOT DETECTED Nasal RSV (PCR) NOT DETECTED Nasal B.pertussis DNA PCR NOT DETECTED Nasal C.pneumoniae (PCR) NOT DETECTED Lalo Human Metapneumo PCR NOT DETECTED Nasal M.pneumoniae (PCR) NOT DETECTED Nasal SARS-CoV-2 (PCR) NOT DETECTED Blood Type Blood Type Recheck Antibody Screen TANI, IgG Specific TANI, Polyspecific TANI, C3d Specific Crossmatch IS Only 12/04/21 Range/Units 19:25 WBC 5.3 (4.8-10.8) x10^3/uL RBC 2.61 L (4.70-6.10) 10^6/uL Hgb 8.2 L (14.0-18.0) g/dL Hct 24.1 L (42.0-52.0) % MCV 92.3 (80.0-94.0) fL MCH 31.4 H (27.0-31.0) pg MCHC 34.0 (32.0-36.0) g/dL RDW 17.7 H (12.0-15.0) % Plt Count 26 L* (130-450) 10^3/uL MPV 10.7 (7.4-11.4) fL Neut # (Auto) 2.8 (1.5-6.6) 10^3/uL Lymph # (Auto) 1.1 L (1.5-3.5) 10^3/uL Montgomery # (Auto) 0.6 (0.0-1.0) 10^3/uL Eos # (Auto) 0.1 (0.0-0.7) 10^3/uL Baso # (Auto) 0.0 (0.0-0.1) 10^3/uL Absolute Nucleated RBC 0.02 x10^3/uL Total Counted Band Neuts % (Manual) Not Reportable Abnorm Lymph % (Manual) Not Reportable Myelocytes % ( - 0) % Nucleated RBC % 0.4 /100WBC Neutrophils # (Manual) Not Reportable Lymphocytes # (Manual) Not Reportable Monocytes # (Manual) Not Reportable Eosinophils # (Manual) Not Reportable Basophils # (Manual) Not Reportable Differential Comment MANUAL=AUTO DIFF Manual Slide Review Indicated WBC Morphology (NORMAL) Platelet Estimate DECREASED (<130,000) (NORMAL) Platelet Morphology NORMAL APPEARANCE (NORMAL) RBC Morph Micro Appear 1+ HYPOCHROMASIA (NORMAL) Sodium (135-145) mmol/L Potassium (3.5-5.0) mmol/L Chloride (101-111) mmol/L Carbon Dioxide (21-32) mmol/L Anion Gap (6-13) BUN (6-20) mg/dL Creatinine (0.6-1.2) mg/dL Estimated GFR (MDRD) (>89) Glucose (70-100) mg/dL POC Whole Bld Glucose (70 - 100) mg/dL Estimat Average Glucose (70-100) mg/dL Hemoglobin A1c % (4.27-6.07) % Calcium (8.5-10.3) mg/dL Phosphorus (2.5-4.6) mg/dL Magnesium (1.7-2.8) mg/dL Total Bilirubin (0.2-1.0) mg/dL AST (10-42) IU/L ALT (10-60) IU/L Alkaline Phosphatase (42-121) IU/L Total Protein (6.7-8.2) g/dL Albumin (3.2-5.5) g/dL Globulin (2.1-4.2) g/dL Albumin/Globulin Ratio (1.0-2.2) Nasal Adenovirus (PCR) Nasal B. parapertussis DNA (PCR) Nasal Coronavir 229E PCR Nasal Coronavir HKU1 PCR Nasal Coronavir NL63 PCR Nasal Coronavir OC43 PCR Nasal Enterovir/Rhinovir PCR Nasal Influenza B PCR Nasal Influenza A PCR Nasal Parainfluen 1 PCR Nasal Parainfluen 2 PCR Nasal Parainfluen 3 PCR Nasal Parainfluen 4 PCR Nasal RSV (PCR) Nasal B.pertussis DNA PCR Nasal C.pneumoniae (PCR) Lalo Human Metapneumo PCR Nasal M.pneumoniae (PCR) Nasal SARS-CoV-2 (PCR) Blood Type Blood Type Recheck Antibody Screen TANI, IgG Specific TANI, Polyspecific TANI, C3d Specific Crossmatch IS Only Impression and Recommendations - Palliative Care Impression: This is a paul 76-year-old gentleman with known relapsed multiple myeloma, does have complex treatment history, and now presents with acute hypercalcemia and acute kidney injury, Needing hospitalization. Patient received transfusion and pending discharge. Palliative care introduced to patient and , with role for pain and symptom management, coordination of care and anticipatory guidance. Recommendations/Counseling Done: 1. Pain of neoplastic origin. Patient does have 1 significant lesion that would be appropriate most likely for radiation, particularly since there is associated bony destruction and extraosseous soft tissue mass, did follow-up with Dr. Ortiz, will make urgent referral for radiation for pain control and rapid control of lesion. Counseling provided regarding the role of radiation and pain control, and patient has not had radiation in the past. Dr. Ortiz requested images be pushed through, will assist with transition.Counseling provided regarding [id number] dosing with oxycodone, requested when you get home to record on a regular basis, will transition either to fentanyl patch or long-acting morphine, depending on use on discharge. Plan to see patient on or Saturday during his hydration. 2. Constipation. Patient has been using suppositories, counseling provided regarding patient's history of abscesses and currently now with thrombocytopenia to avoid. Counseling provided regarding regular use of MiraLAX for "motion" and senna concentrate 8.6 mg 1-2 tabs for "push". Counseling and teaching done for titration of opioid induced constipation. 3. Weight loss. Patient may benefit from low-dose dexamethasone, will follow up with oncology next week, 's observation as patient does better with hydration and intake is better. Patient has had weight loss, mostly related to poor pain control and constipation. Patient is also had intermittent nausea, most likely attributed to his hypercalcemia. Patient is due for Zometa next week. 4. Multiple myeloma. Patient still getting finalized work-up, now has had CT scans, with increased information. Patient unable to get treatment this week, Dr. Garcia would like him to get his treatment on 12/12 as he missed this week. Will facilitate with [facility] [place]. 5. Hypercalcemia. Patient with recurrent hypercalcemia, and recurrent dehydration. Pending holiday weekend, will make arrangements for fluids, as well as labs and attempt to avoid further rehospitalization or ED visits. Discussed with oncology, and follow-[place] with [facility] [place]. 6. Anxiety. Patient and expressing appropriate anxiety given patient's fluctuating status, now another acute hospitalization. Counseling provided regarding normalizing current process with daily unknown, role of palliative care, and assisting with coordination of care. 7. Muscle weakness. This is multifactorial, patient deconditioned secondary to several prolonged hospitalizations as well as dealing with rectal abscess, weight loss with muscle wasting, and recurrent hypercalcemia. Is a taxing and considerable effort for patient to leave the home secondary to current fatigue and weakness. Patient would benefit from home physical therapy, in assistance with ADLs, would benefit from bathing assist. Patient has had therapy in the home before, with realistic expectations of outcomes. Patient's goals are to get stronger, and be able to manage going upstairs. Information given regarding obtaining hospital bed from [facility], patient does have a reclining bed upstairs, but currently cannot navigate stairs secondary to lower extremity weakness 8. Advance care planning. Patient currently attempt resuscitation. Patient without any advance directives on file. Will continue to explore with patient and goals of care, provide support through disease trajectory, and focus on quality of life issues. 75 minutes with greater than 50% of this time in counseling regarding pain and symptom management, coordination of care with oncology and MAC and hospitalist, anticipatory guidance and introduction of role of palliative care.
--- NOTE | 2021-12-05 17:27 | PROVIDER PROGRESS NOTE ---
Assessment/Plan - Problem List (1) Hypercalcemia Assessment/Plan: Secondary to multiple myeloma. Admission calcium level was 13.4. Today calcium is 11.9. On lactated ringer at 150 mL/h. We will continue. Zoledronic acid was not given during this admission because the patient receives it at the [facility] every 3 weeks and is due next week. (2) Multiple myeloma Qualifiers: Multiple myeloma remission status: in relapse Qualified Code(s): C90.02 - Multiple myeloma in relapse Assessment/Plan: He will need continued outpatient follow-up with Dr. Ortiz on discharge. Palliative care was consulted. Patient was seen by Shoshana Can today and will continue to follow in the outpatient setting. (3) Anemia Assessment/Plan: Secondary to multiple myeloma/anemia of chronic disease. Hemoglobin yesterday was 8.2 and today 6.9. 2 units of packed red blood cells were ordered. However due to special processing, this was brought from an outside facility. As a result He did not receive transfusion until later in the evening. (4) Back pain Assessment/Plan: Patient has multiple lytic lesions throughout the visualized osseous structures consistent with multiple myeloma. This was seen on CT of thorax and lumbar spine. Palliative care consulted. Patient was seen by Shoshana Can. Home health PT and bath aide ordered. Pain management with oxycodone 5 mg p.o. every 4 hours as needed. Tylenol 650 mg p.o. every 4 hours as needed. (7) Thrombocytopenia Assessment/Plan: Likely secondary to multiple myeloma. Platelet yesterday was 26 and 21 today. No sign of active bleeding. Consequently no platelet transfusions and - Current Meds Current Meds: Current Medications Generic Name Dose Route Start Last Admin Trade Name Freq PRN Reason Stop Dose Admin Lactated Ringer's 1,000 mls @ 150 mls/hr 12/05/21 01:00 12/05/21 13:11 Lr IV 150 mls/hr .Q6H40M JOCELYN Administration Insulin Aspart 1 - 5 unit 12/05/21 08:00 12/05/21 11:29 Insulin Aspart 300 Unit/3 Ml Pen SUBQ Not Given 0800,1200,1700,2100 [facility] Protocol Oxycodone HCl 5 mg 12/04/21 21:49 12/05/21 12:26 Oxycodone 5 Mg Tablet PO 5 mg Q4HR PRN Administration Pain 5 to 7 Polyethylene Glycol 17 gm 12/05/21 09:00 12/05/21 09:31 Polyethylene Glycol 3350 17 Gm Packet PO 17 gm DAILY JOCELYN Administration Sodium Chloride 10 ml 12/05/21 01:00 12/05/21 11:29 Sodium Chloride Flush 0.9% 10 Ml Syringe IVP Not Given 0100,0900,1700 JOCELYN Valacyclovir HCl 500 mg 12/05/21 09:00 12/05/21 09:31 Valacyclovir 500 Mg Tablet PO 500 mg BID JOCELYN Administration - Lab Result Fish Bone Diagrams: 12/05/21 04:53 12/05/21 04:53 - Additional Planning My Orders: My Active Orders 12/05/21 Home Health Referral [CONS] Routine Evaluate and Treat OT [OT] Routine Evaluate and Treat PT [PT] Routine 12/05/21 10:46 Palliative Care Referral [RC] ONCE 12/05/21 10:47 Bisacodyl Supp [Dulcolax Supp] 10 mg LA DAILY PRN 12/05/21 11:30 Palliative Care Consult [CONS] Routine Objective Vital Signs: Vital Signs - 24 hr 12/04/21 12/04/21 12/04/21 19:04 19:58 21:12 Temperature 37.1 C Heart Rate 114 H 105 H 110 H Heart Rate [ Brachial] Respiratory 14 16 15 Rate Blood Pressure 127/58 L 134/68 H 143/85 H Blood Pressure [Left Brachial artery] Blood Pressure [Right Brachial artery] O2 Saturation 97 96 98 12/05/21 12/05/21 12/05/21 07:08 08:27 11:33 Temperature 36.7 C 36.6 C 36.3 C L Heart Rate Heart Rate [ 98 107 H 103 H Brachial] Respiratory 16 18 16 Rate Blood Pressure Blood Pressure [Left Brachial artery] Blood Pressure 135/59 H 150/67 H 133/55 H [Right Brachial artery] O2 Saturation 97 94 97 12/05/21 16:55 Temperature 36.6 C Heart Rate Heart Rate [ 108 H Brachial] Respiratory 18 Rate Blood Pressure Blood Pressure 146/72 H [Left Brachial artery] Blood Pressure [Right Brachial artery] O2 Saturation 98 Oxygen O2 Source Room air I&O (Last 24 Hrs): Intake and Output Totals x24h 12/03/21 12/04/21 12/05/21 23:59 23:59 23:59 Intake Total 1000 3795 Output Total 1025 Balance 1000 2770 General: Alert, Oriented x3, Moderate distress HEENT: PERRLA, EOMI Neck: Supple, No JVD Neuro: Alert, Non Focal, Oriented Times 3 Cardiovascular: Regular rate Respiratory: Chest non-tender, No respiratory distress, Breath sounds nml Abdomen: Normal bowel sounds, Soft, No tenderness Extremities: No clubbing, No edema Comments/Notes: Bruising noted on left forearm. - Results Results: Laboratory Results WBC 5.2 x10^3/uL (4.8-10.8) 12/05/21 04:53 RBC 2.20 10^6/uL (4.70-6.10) L 12/05/21 04:53 Hgb 6.9 g/dL (14.0-18.0) L* 12/05/21 04:53 Hct 20.8 % (42.0-52.0) L 12/05/21 04:53 MCV 94.5 fL (80.0-94.0) H 12/05/21 04:53 MCH 31.4 pg (27.0-31.0) H 12/05/21 04:53 MCHC 33.2 g/dL (32.0-36.0) 12/05/21 04:53 RDW 18.0 % (12.0-15.0) H 12/05/21 04:53 Plt Count 21 10^3/uL (130-450) L* 12/05/21 04:53 MPV TNP 12/05/21 04:53 Neut # (Auto) Not Reportable 12/05/21 04:53 Lymph # (Auto) Not Reportable 12/05/21 04:53 [place] # (Auto) Not Reportable 12/05/21 04:53 Eos # (Auto) Not Reportable 12/05/21 04:53 Baso # (Auto) Not Reportable 12/05/21 04:53 Absolute Nucleated RBC Not Reportable 12/05/21 04:53 Total Counted 100 12/05/21 04:53 Band Neuts % (Manual) 8 % (0-10) 12/05/21 04:53 Abnorm Lymph % (Manual) 0 % 12/05/21 04:53 Myelocytes % 2 % (-0) H 12/05/21 04:53 Nucleated RBC % Not Reportable 12/05/21 04:53 Neutrophils # (Manual) 3.3 10^3/uL (1.5-6.6) 12/05/21 04:53 Lymphocytes # (Manual) 1.0 10^3/uL (1.5-3.5) L 12/05/21 04:53 Monocytes # (Manual) 0.7 10^3/uL (0.0-1.0) 12/05/21 04:53 Eosinophils # (Manual) 0.1 10^3/uL (0-0.7) 12/05/21 04:53 Basophils # (Manual) 0.0 10^3/uL (0-0.1) 12/05/21 04:53 Differential Comment MANUAL DIFFERENTIAL 12/05/21 04:53 Manual Slide Review Indicated 12/04/21 19:25 WBC Morphology NORMAL APPEARANCE (NORMAL) 12/05/21 04:53 Platelet Estimate DECREASED (<130,000) (NORMAL) 12/05/21 04:53 Platelet Morphology NORMAL APPEARANCE (NORMAL) 12/05/21 04:53 RBC Morph Micro Appear 1+ ANISOCYTOSIS (NORMAL) 1+ HYPOCHROMASIA (NORMAL) 1+ MICROCYTOSIS (NORMAL) 12/05/21 04:53 RBC Morph Micro Appear 1+ ANISOCYTOSIS (NORMAL) 1+ HYPOCHROMASIA (NORMAL) 1+ MICROCYTOSIS (NORMAL) 12/05/21 04:53 RBC Morph Micro Appear 1+ ANISOCYTOSIS (NORMAL) 1+ HYPOCHROMASIA (NORMAL) 1+ MICROCYTOSIS (NORMAL) 12/05/21 04:53 Sodium 133 mmol/L (135-145) L 12/05/21 04:53 Potassium 4.6 mmol/L (3.5-5.0) 12/05/21 04:53 Chloride 101 mmol/L (101-111) 12/05/21 04:53 Carbon Dioxide 24 mmol/L (21-32) 12/05/21 04:53 Anion Gap 8.0 (6-13) 12/05/21 04:53 BUN 33 mg/dL (6-20) H 12/05/21 04:53 Creatinine 1.6 mg/dL (0.6-1.2) H 12/05/21 04:53 Estimated GFR (MDRD) 42 (>89) L 12/05/21 04:53 Glucose 129 mg/dL (70-100) H 12/05/21 04:53 POC Whole Bld Glucose 96 mg/dL (70 - 100) 12/05/21 16:45 Estimat Average Glucose 128 mg/dL (70-100) H 12/05/21 04:53 Hemoglobin A1c % 6.1 % (4.27-6.07) H 12/05/21 04:53 Calcium 11.9 mg/dL (8.5-10.3) H 12/05/21 04:53 Phosphorus 3.6 mg/dL (2.5-4.6) 12/05/21 04:53 Magnesium 2.2 mg/dL (1.7-2.8) 12/05/21 04:53 Total Bilirubin 0.5 mg/dL (0.2-1.0) 12/04/21 19:25 AST 62 IU/L (10-42) H 12/04/21 19:25 ALT 15 IU/L (10-60) 12/04/21 19:25 Alkaline Phosphatase 63 IU/L (42-121) 12/04/21 19:25 Total Protein 6.9 g/dL (6.7-8.2) 12/04/21 19:25 Albumin 3.5 g/dL (3.2-5.5) 12/04/21 19:25 Globulin 3.4 g/dL (2.1-4.2) 12/04/21 19:25 Albumin/Globulin Ratio 1.0 (1.0-2.2) 12/04/21 19:25 Nasal Adenovirus (PCR) NOT DETECTED 12/04/21 21:50 Nasal B. parapertussis DNA (PCR) NOT DETECTED 12/04/21 21:50 Nasal Coronavir 229E PCR NOT DETECTED 12/04/21 21:50 Nasal Coronavir HKU1 PCR NOT DETECTED 12/04/21 21:50 Nasal Coronavir NL63 PCR NOT DETECTED 12/04/21 21:50 Nasal Coronavir OC43 PCR NOT DETECTED 12/04/21 21:50 Nasal Enterovir/Rhinovir PCR NOT DETECTED 12/04/21 21:50 Nasal Influenza B PCR NOT DETECTED 12/04/21 21:50 Nasal Influenza A PCR NOT DETECTED 12/04/21 21:50 Nasal Parainfluen 1 PCR NOT DETECTED 12/04/21 21:50 Nasal Parainfluen 2 PCR NOT DETECTED 12/04/21 21:50 Nasal Parainfluen 3 PCR NOT DETECTED 12/04/21 21:50 Nasal Parainfluen 4 PCR NOT DETECTED 12/04/21 21:50 Nasal RSV (PCR) NOT DETECTED 12/04/21 21:50 Nasal B.pertussis DNA PCR NOT DETECTED 12/04/21 21:50 Nasal C.pneumoniae (PCR) NOT DETECTED 12/04/21 21:50 Lalo Human Metapneumo PCR NOT DETECTED 12/04/21 21:50 Nasal M.pneumoniae (PCR) NOT DETECTED 12/04/21 21:50 Nasal SARS-CoV-2 (PCR) NOT DETECTED 12/04/21 21:50 Blood Type A POSITIVE 12/05/21 04:53 Blood Type Recheck A POSITIVE 12/05/21 07:19 Antibody Screen POSITIVE 12/05/21 04:53 TANI, IgG Specific POSITIVE 12/05/21 04:53 TANI, Polyspecific Not Reportable 12/05/21 04:53 TANI, C3d Specific NEGATIVE 12/05/21 04:53 Crossmatch IS Only See Detail 12/05/21 04:53
[2021-12-06] MEDS: SODIUM CHLORIDE FLUSH 0.9% 10 ML SYRINGE IVP SCH ×2 (02:16→08:41)
[2021-12-06] MEDS: LACTATED RINGERS 1,000 ML IV SCH ×2 (02:20→09:27)
[2021-12-06] MEDS: oxyCODONE 5 MG TABLET PO PRN ×3 (03:53→13:43)
[2021-12-06 06:08] LABS: BASOPHILS % (AUTO) 0.4 %; EOSINOPHILS % (AUTO) 1.2 %; LYMPHOCYTES % (AUTO) 27.6 %; MEAN CORPUSCULAR HEMOGLOBIN 31.4 pg (27.0-31.0); MEAN CORPUSCULAR HGB CONC 33.3 g/dL (32.0-36.0); MEAN CORPUSCULAR VOLUME 94.2 fL (80.0-94.0); MEAN PLATELET VOLUME 10.2 fL (7.4-11.4); MONOCYTES % (AUTO) 13.2 %; RED BLOOD COUNT 2.07 10^6/uL (4.70-6.10); WHITE BLOOD COUNT 2.5 x10^3/uL (4.8-10.8)
[2021-12-06 06:20] LABS: CREATININE 1.4 mg/dL (0.6-1.2); MAGNESIUM 1.9 mg/dL (1.7-2.8); PHOSPHORUS 2.4 mg/dL (2.5-4.6); POTASSIUM 4.3 mmol/L (3.5-5.0)
[2021-12-06 06:25] LABS: HCT - HEMATOCRIT 19.5 % (42.0-52.0); HGB - HEMOGLOBIN 6.5 g/dL (14.0-18.0); PLT - PLATELET COUNT 15 10^3/uL (130-450)
[2021-12-06 06:26] LABS: ABNORMAL LYMPHS % (MANUAL) 0 %
[2021-12-06 06:27] LABS: CALCIUM 12.3 mg/dL (8.5-10.3)
[2021-12-06 06:45] LABS: BAND NEUTROPHILS % (MANUAL) 6 %; LYMPHOCYTES # (MANUAL) 0.7 10^3/uL (1.5-3.5); LYMPHOCYTES % (MANUAL) 27 %; METAMYELOCYTES % (MANUAL) 2 %; MONOCYTES # (MANUAL) 0.2 10^3/uL (0.0-1.0); MYELOCYTES % (MANUAL) 4 %; NEUTROPHILS # (MANUAL) 1.4 10^3/uL (1.5-6.6)
[2021-12-06 06:46] LABS: DIFFERENTIAL COMMENT MANUAL DIFFERENTIAL; PLATELET ESTIMATE, MANUAL DECREASED (<130,000) (NORMAL); PLATELET MORPHOLOGY NORMAL APPEARANCE (NORMAL); WBC MORPHOLOGY (MULTIPLE) NORMAL APPEARANCE (NORMAL)
[2021-12-06] MEDS: valACYclovir 500 MG TABLET PO SCH (08:31)
[2021-12-06] MEDS: polyethylene glycoL 3350 17 GM PACKET PO SCH (08:41)
[2021-12-06] MEDS ORDERED: SENNA 8.6 MG TABLET PO SCH (09:00)
[2021-12-06] MEDS ORDERED: DOCUSATE SODIUM 250 MG CAPSULE PO SCH (09:00)
[2021-12-06] MEDS ORDERED: SODIUM CHLORIDE 0.9% 500 ML IV ONE (11:50)
[2021-12-06] MEDS ORDERED: ZOLEDRONIC ACID 3 MG in SODIUM CHLORIDE 0.9% 100ML 100 ML IV ONE (12:00)
--- NOTE | 2021-12-06 13:35 | CONSULTATION NOTE ---
Palliative Care Follow Up - Referral Referring Provider: Dr. Catrachita Saucedo Time of Visit: [id number] Referral setting: Hospitalized patient Referral Reason: Pain of neoplastic origin/MM/Hypercalciumia/FTT - Information Sources Records reviewed: Previous records reviewed History/Review of Systems obtained from: Patient, Family ( at bedside) Exam limitations: No limitations - History of Present Illness Update Brief HPI Update: Please see HPI 12/05/21 for more comprehensive history. Update: Patient was unable to receive his transfusion last night secondary to issues around irradiated blood. Patient is currently receiving infusion, patient does not have a Port-A-Cath and is receiving peripherally.Patient's hem oglobin continues to be 6.5, hematocrit 15, WBC has dropped to 2.5 with neutrophils 1.4, platelets have dropped down to 15,000. Today his calcium has increased to 12.3, he will get Zometa 3 mg, this had been held as it had dropped some with hydration. Patient's care continues to be quite complex, will be receiving adequate counts his treatment on Tuesday 12/12. Arrangements are being made for follow-up on labs tomorrow, as well as hydration both and Saturday.Confirming with patient and , urgent radiation oncology referral, though patient reports that most pinpoint pain today is in his left rib area, though does have an noted mass in his right posterior area though his pain is described as a band across his back. Increased pain with turning twisting getting up and down from the bed, is fairly comfortable at rest.Patient has been taking oxycodone 5 mg [id number] 4-5 doses in 24 hours with better control.He continues with poor appetite, weight loss, functional decline, and appropriately anxious regarding his counts.Physical therapy and bathing have been set up with [facility], they are quite anxious about transitioning home. Social History - Living Situation Living arrangement: At home Living Situation: With spouse/s.o. Support System: Patient and have been for 59 years, [place] and a child who has passed. They have 2 homes, often go to [place] in the [place], and staying on [facility] [place] the [place]. He retired in 2011. Do not have extensive community here. Medications/Allergies - Medications Active Medication List: Active Medications Acetaminophen (Acetaminophen 325 Mg Tablet) 650 mg PO Q4HR PRN PRN Reason: Pain 1 to 4, or Fever Bisacodyl (Bisacodyl 10 Mg Supp) 10 mg NE DAILY PRN PRN Reason: Constipation Docusate Sodium (Docusate Sodium 250 Mg Capsule) 250 - 500 mg PO DAILY [facility] Last Admin: 12/06/21 09:27 Dose: 250 mg Lactated Ringer's (Lr) 1,000 mls @ 150 mls/hr IV .Q6H40M [facility] Last Infusion: 12/06/21 10:30 Dose: 0 mls/hr Ondansetron HCl (Ondansetron Odt 4 Mg Tablet) 4 mg TL Q6HR PRN PRN Reason: Nausea / Vomiting Ondansetron HCl (Ondansetron 4 Mg/2 Ml Vial) 4 mg IVP Q6HR PRN PRN Reason: Nausea / Vomiting Oxycodone HCl (Oxycodone 5 Mg Tablet) 5 mg PO Q4HR PRN PRN Reason: Pain 5 to 7 Last Admin: 12/06/21 08:31 Dose: 5 mg Polyethylene Glycol (Polyethylene Glycol 3350 17 Gm Packet) 17 gm PO DAILY [facility] Last Admin: 12/06/21 08:41 Dose: 17 gm Senna (Senna 8.6 Mg Tablet) 8.6 - 17.2 mg PO DAILY [facility] Last Admin: 12/06/21 09:27 Dose: 8.6 mg Sodium Chloride (Sodium Chloride Flush 0.9% 10 Ml Syringe) 10 ml IVP PRN PRN PRN Reason: NEEDED PER PROVIDER ORDERS Sodium Chloride (Sodium Chloride Flush 0.9% 10 Ml Syringe) 10 ml IVP 0100,0900,1700 [facility] Last Admin: 12/06/21 08:41 Dose: Not Given Valacyclovir HCl (Valacyclovir 500 Mg Tablet) 500 mg PO BID [facility] Last Admin: 12/06/21 08:31 Dose: 500 mg Valacyclovir HCl [Valtrex] 500 mg PO BID 11/14/21 - Allergies Allergies/Adverse Reactions: Allergies Allergy/AdvReac Type Severity Reaction Status Date / Time No Known Drug Allergies Allergy Verified 12/04/21 19:29 Review of Systems - Constitutional Constitutional: reports: Fatigue, Weakness, Poor appetite, Weight loss (190 with healthy weight/ 176) - Ears, Nose & Throat Ears, Nose & Throat: reports: Dry mouth - Cardiovascular Cardiovascular: reports: Lightheadedness, Exertional dyspnea, Decr. exercise tolerance. denies: Edema - Respiratory Respiratory: reports: SOB with exertion. denies: SOB at rest - Gastrointestinal Gastrointestinal: reports: Constipation, Poor appetite, Early satiety - Musculoskeletal Musculoskeletal: reports: Back pain, Muscle aches, Stiffness, Muscle weakness, Assistive devices (walker; though patient has mostly been bedbound since hospitalization; does have a recliner at home) - Integumentary Integumentary: reports: Dryness - Neurological Neurological: reports: General weakness, Memory problems (mild STM) - Psychiatric Psychiatric: reports: Anxiety (expressing concerns with dropping counts). denies: Depression - Hematologic/Lymphatic Hematologic/Lymph: reports: Anemia (receiving transfusion currently), Bruising, Recurrent infections (rectal abcess improved) - All Other Systems All Other Systems: reports: Reviewed and negative Physical Exam - Vital Signs Vital Signs: Vital Signs x48h Temp Pulse Resp BP BP Pulse Ox 12/06/21 12:59 36.8 C 110 H 19 141/76 H 96 12/06/21 11:20 36.7 C 107 H 18 131/61 H 94 12/06/21 11:05 36.6 C 113 H 18 115/61 94 12/06/21 10:45 36.6 C 110 H 20 143/66 H 94 12/06/21 07:30 36.3 C L 110 H 18 125/66 97 - Physical Exam General Appearance: positive: Alert Eyes Bilateral: positive: Normal inspection ENT: positive: No signs of dehydration Neck: positive: Trachea midline Respiratory: positive: No respiratory distress Abdomen: positive: Soft Skin: positive: Pallor, Dryness, Wound (pic in chart) Extremities: positive: No pedal edema Neurologic/Psychiatric: positive: Oriented x3, Mood/affect nml, Flat affect Palliative Care - POLST Patient has POLST: No Pain: Pain worsening, Location (reports more prominent in left rib area today) Feelings of wellbeing/Perceived Quality of Life: Poor, Worsening Sleep: Variable sleep pattern Constipation: Yes, Opoid induced, Intermittent constipation Performance Status: Patient is continue to have decline in functional status, is mostly bedbound both from pain and deconditioning. Patient does have home physical therapy ordered, considering hospital bed. We will continue to monitor, hopefully will have some improvement with transfusion as far as fatigue and strength - Palliative Care Discussion: Patient discouraged with declining Counts, does recognize this is complicated and concerned regarding implications. does feel somewhat overwhelmed, and understands patient's frailty. Palliative care is setting up rapport, will continue to explore advance care planning with next couple visits. Patient and feeling very not vulnerable with current hospitalization and multiple moving parts. Counseling provided regarding role of radiation oncology, plan to manage over the next few days and pending schedule. Results - Lab Results Lab results reviewed: Yes Fish Bones: 12/06/21 04:35 12/06/21 04:35 Lab and Imaging Results: Lab Results x24hrs 12/06/21 12/06/21 12/06/21 Range/Units 07:27 04:35 04:35 WBC 2.5 L (4.8-10.8) x10^3/uL RBC 2.07 L (4.70-6.10) 10^6/uL Hgb 6.5 L* (14.0-18.0) g/dL Hct 19.5 L* (42.0-52.0) % MCV 94.2 H (80.0-94.0) fL MCH 31.4 H (27.0-31.0) pg MCHC 33.3 (32.0-36.0) g/dL RDW 18.0 H (12.0-15.0) % Plt Count 15 L* (130-450) 10^3/uL MPV 10.2 (7.4-11.4) fL Neut # (Auto) Not Reportable Lymph # (Auto) Not Reportable [place] # (Auto) Not Reportable Eos # (Auto) Not Reportable Baso # (Auto) Not Reportable Absolute Nucleated RBC Not Reportable Total Counted 100 Band Neuts % (Manual) 6 (0 - 10) % Abnorm Lymph % (Manual) 0 % Metamyelocytes % 2 H ( - 0) % Myelocytes % 4 H ( - 0) % Nucleated RBC % Not Reportable Neutrophils # (Manual) 1.4 L (1.5-6.6) 10^3/uL Lymphocytes # (Manual) 0.7 L (1.5-3.5) 10^3/uL Monocytes # (Manual) 0.2 (0.0-1.0) 10^3/uL Eosinophils # (Manual) 0.0 (0-0.7) 10^3/uL Basophils # (Manual) 0.0 (0-0.1) 10^3/uL Differential Comment MANUAL DIFFERENTIAL WBC Morphology NORMAL APPEARANCE (NORMAL) Platelet Estimate DECREASED (<130,000) (NORMAL) Platelet Morphology NORMAL APPEARANCE (NORMAL) RBC Morph Micro Appear 1+ MICROCYTOSIS (NORMAL) Sodium 138 (135-145) mmol/L Potassium 4.3 (3.5-5.0) mmol/L Chloride 101 (101-111) mmol/L Carbon Dioxide 28 (21-32) mmol/L Anion Gap 9.0 (6-13) BUN 28 H (6-20) mg/dL Creatinine 1.4 H (0.6-1.2) mg/dL Estimated GFR (MDRD) 49 L (>89) Glucose 89 (70-100) mg/dL POC Whole Bld Glucose 80 (70 - 100) mg/dL Calcium 12.3 H* (8.5-10.3) mg/dL Phosphorus 2.4 L (2.5-4.6) mg/dL Magnesium 1.9 (1.7-2.8) mg/dL Blood Type Antibody Screen Antibody Identification TANI, IgG Specific TANI, C3d Specific Crossmatch 12/05/21 12/05/21 12/05/21 Range/Units 21:19 16:45 04:53 WBC (4.8-10.8) x10^3/uL RBC (4.70-6.10) 10^6/uL Hgb (14.0-18.0) g/dL Hct (42.0-52.0) % MCV (80.0-94.0) fL MCH (27.0-31.0) pg MCHC (32.0-36.0) g/dL RDW (12.0-15.0) % Plt Count (130-450) 10^3/uL MPV (7.4-11.4) fL Neut # (Auto) Lymph # (Auto) [place] # (Auto) Eos # (Auto) Baso # (Auto) Absolute Nucleated RBC Total Counted Band Neuts % (Manual) (0 - 10) % Abnorm Lymph % (Manual) % Metamyelocytes % ( - 0) % Myelocytes % ( - 0) % Nucleated RBC % Neutrophils # (Manual) (1.5-6.6) 10^3/uL Lymphocytes # (Manual) (1.5-3.5) 10^3/uL Monocytes # (Manual) (0.0-1.0) 10^3/uL Eosinophils # (Manual) (0-0.7) 10^3/uL Basophils # (Manual) (0-0.1) 10^3/uL Differential Comment WBC Morphology (NORMAL) Platelet Estimate (NORMAL) Platelet Morphology (NORMAL) RBC Morph Micro Appear (NORMAL) Sodium (135-145) mmol/L Potassium (3.5-5.0) mmol/L Chloride (101-111) mmol/L Carbon Dioxide (21-32) mmol/L Anion Gap (6-13) BUN (6-20) mg/dL Creatinine (0.6-1.2) mg/dL Estimated GFR (MDRD) (>89) Glucose (70-100) mg/dL POC Whole Bld Glucose 99 96 (70 - 100) mg/dL Calcium (8.5-10.3) mg/dL Phosphorus (2.5-4.6) mg/dL Magnesium (1.7-2.8) mg/dL Blood Type A POSITIVE Antibody Screen POSITIVE Antibody Identification See Comments TANI, IgG Specific POSITIVE TANI, C3d Specific NEGATIVE Crossmatch See Detail Impression and Recommendations - Palliative Care Impression: This is a paul 76-year-old gentleman with known relapsed multiple myeloma, with complex treatment history, requiring blood transfusion with worsening pancytopenia. Patient with elevated calcium today, will receive Zometa. Patient may remains quite frail, with weight loss, functional decline, high s ymptom burden, and escalating pain.Palliative care providing support for pain and symptom management, anticipatory guidance, as well as coordination of care. Recommendations/Counseling Done: 1. Pain of neoplastic origin. Patient with pending urgent radiation oncology referral, sent to [facility] today via [facility]. Counseling provided regarding the role of radiation, palliative care will be writing opioid prescriptions, counseling provided regarding 1 prescriber and 1 pharmacy is all safety. We will consider transitioning to fentanyl patch in the near future, reluctant to make any changes until patient transitions home and baseline opioid use evaluated. 2. Pancytopenia. Patient currently receiving 1 unit of irradiated blood cells, platelets down to 15,000, no signs or symptoms of bleeding, specialty she signs or symptoms of bleeding or less than 10,000 and oncology patients. We will do blood draw tomorrow, to evaluate further, unfortunately WBC is also have dropped to 2.5. Arrangements made with consult to oncology, for treatment to restart next Saturday. 3. Hypercalcemia. Patient's calcium has increased to 12.6 today, will receive fluid bolus and zometa 3 mg prior to discharge. Will get one liter and labs tomorrow, will follow up accordingly. 4. Advanced care planning. Palliative care continue provide support, will explore further goals of care and pending visits, continue to provide coordination of care and develop rapport. 45 minutes With greater than 50% of this spent in counseling and coordination of care regarding disease, disease treatments, trajectory and anticipatory guidance
[2021-12-06 15:53] VITALS: BP 145/78
[2021-12-06 16:27] LABS: BASOPHILS % (AUTO) 0.7 %; HCT - HEMATOCRIT 25.2 % (42.0-52.0); HGB - HEMOGLOBIN 8.6 g/dL (14.0-18.0); LYMPHOCYTES % (AUTO) 27.6 %; MEAN CORPUSCULAR HGB CONC 34.1 g/dL (32.0-36.0); NEUTROPHILS % (AUTO) 47.6 %; RED BLOOD COUNT 2.77 10^6/uL (4.70-6.10); RED CELL DISTRIBUTION WIDTH 17.5 % (12.0-15.0); WHITE BLOOD COUNT 2.9 x10^3/uL (4.8-10.8)
[2021-12-06 16:30] LABS: PLT - PLATELET COUNT 13 10^3/uL (130-450)
[2021-12-06 16:31] LABS: CALCIUM 11.9 mg/dL (8.5-10.3); CREATININE 1.5 mg/dL (0.6-1.2); POTASSIUM 4.6 mmol/L (3.5-5.0)
[2021-12-06 16:32] LABS: ABNORMAL LYMPHS % (MANUAL) 0 %
--- NOTE | 2021-12-06 16:34 | DISCHARGE SUMMARY ---
Discharge Summary Admit Date: 12/04/21 Discharge Date: 12/06/21 Discharging Provider: Catrachita Zavalatu Code Status: Attempt Resuscitation Condition at Discharge: Serious Discharge Disposition: 01 Home, Self Care - DIAGNOSES Admission Diagnoses: Hypercalcemia Multiple myeloma Acute kidney injury Back pain History of colon cancer Anemia Thrombocytopenia Hyperglycemia Discharge Diagnoses with Status of Each Condition: Hypercalcemia: Acute. 2/2 Multiple myeloma. Improved. Multiple myeloma: Relapsed. To follow with Dr Ortiz at the [facility] Acute kidney injury: Improved. 2/2 Multiple myeloma Back pain: 2/2 Lytic lesions. Pain management prn History of colon cancer: In remission Anemia: s/p transfusion of 2 units of PRBC Thrombocytopenia: Patient will follow up with oncology Hyperglycemia: Improved/ Resolved - HPI History of Present Illness: Patient is a 76-year-old male with a past medical history significant for multiple myeloma in relapse, history of colon cancer in remission who presents today complaining of back pain and due to abnormal labs. He states he has had back pain now for the past week and he started taking oxycodone but has only been using this 1-2 times a day as he does not want potential side effects of narcotics. He states he has since begun to take it every 6 hours and his pain is much better controlled. He states his pain is predominantly in his lower back and around his bilateral ribs. He reports no numbness in his lower extremities. He has had prior surgical interventions in his spine due to the myeloma. He states he was contacted by his oncologist today due to abnormal labs and was told to come to the emergency department and to obtain further imaging due to his back pain to look for metastatic disease. The patient had relapse of his myeloma about 2 months ago when he was in [place] which is where he lives during the winter. He was hospitalized during that time due to acute kidney injury and concern for a pelvic abscess that required drainage. He now follows with Dr. Ortiz here at the [facility] clinic. He is currently receiving treatment with DVd. Treatment was held today except for the Decadron because of thrombocytopenia which is relatively new over the past month. The patient has noticed some bruising in his left arm after an IV attempt recently but otherwise has not had any bleeding. He denies any hematuria, blood in his stool or mucosal bleeding. He states he generally feels okay today compared to the last few days given his pain is better controlled. Here in the Emergency Department, was noted his creatinine was elevated at 2.0 compared to his baseline of around 1.3. His calcium is also elevated at 13.4. He is anemic with a hemoglobin of 8.2 and his platelet count is in the 20s. He was given a liter of IV fluids. Given the acute kidney injury and hypercalcemia, medicine was consulted for admission. We discussed goals of care and he would like to be a full code at this time until he can discuss his prognosis further with his oncologist. - HOSPITAL COURSE Hospital Course: 76-year-old male with medical history significant for multiple myeloma in relapse and history of colon cancer in remission who was admitted on 12/04/2021 with complaint of back pain and abnormal labs. His calcium level was 13.4. His creatinine was also elevated at 2.0. Surya is Dr. Hunt at the [facility] clinic. In the hospital he was placed on lactated Ringer's 150 mL/h. With hydration his calcium level was 11.9 by the time of discharge. He was given 3 mg of zoledronic acid on 12/06/2021. He normally receives zoled ronic acid every [address] [facility] clinic. He had a CT of the chest, thoracic and lumbar spine. This showed multiple lytic lesions throughout the visualized osseous structures consistent with multiple myeloma. This is likely contributing to his back pain. Pain was managed with oxycodone. His hemoglobin dropped to 6.9 while in the hospital. He was transfused 2 units of packed red blood cells. By time of discharge hemoglobin was 8.6. Patient's platelets have been perpetually low. On discharge platelets were 13. There was no sign of bleeding. The patient is following up at the [facility] clinic on 12/07/2021. Will be drawn and he will receive further IV hydration for the next [address] [facility] clinic. He was seen by palliative care during his hospital stay and an urgent radiation oncology referral has been made. Palliative care will continue following him in the outpatient setting. - ALLERGIES Allergies/Adverse Reactions: Allergies Allergy/AdvReac Type Severity Reaction Status Date / Time No Known Drug Allergies Allergy Verified 12/04/21 19:29 - MEDICATIONS Home Medications: Ambulatory Orders Medication Instructions Recorded Confirmed Valacyclovir HCl [Valtrex] 500 mg PO BID 11/14/21 12/05/21 Cyclobenzaprine [Flexeril] 10 mg PO TID PRN #20 tablet 11/22/21 12/05/21 oxyCODONE [Roxicodone] 5 mg PO Q6H PRN 15 Days #60 tablet 11/27/21 12/05/21 - PHYSICAL EXAM AT DISCHARGE General Appearance: positive: Alert, Moderate distress Eyes Bilateral: positive: PERRL, EOMI ENT: positive: No signs of dehydration Neck: positive: No JVD, Trachea midline Respiratory: positive: Chest non-tender, No respiratory distress, Breath sounds nml. negative: Wheezes, Rales, Rhonchi Cardiovascular: positive: Tachycardia (mild) Abdomen: positive: Non-tender, No organomegaly, Nml bowel sounds, No distention. negative: Guarding, Rebound Back: positive: Other (Generalized back pain due to lytic lesions) Skin: positive: Color nml, Other (bruising on upper extremities) Extremities: positive: Non-tender, Full ROM, No pedal edema Neurologic/Psychiatric: positive: Oriented x3, Mood/affect nml - LABS Result Diagrams: 12/06/21 16:16 12/06/21 16:16 - TIME SPENT Time Spent in Discharge (Minutes): 20
--- NOTE | 2021-12-06 16:45 | Discharge Plan ---
Discharge Plan Problem Reviewed?: Yes Disposition: 01 Home, Self Care Condition: Serious Diet: Regular Activity Restrictions: Activity as Tolerated Health Concerns: 76-year-old male with medical history significant for multiple myeloma in relapse and history of colon cancer in remission who was admitted on 12/04/2021 with complaint of back pain and abnormal labs. His calcium level was 13.4. His creatinine was also elevated at 2.0. Surya is Dr. Hunt at the [facility] clinic. In the hospital he was placed on lactated Ringer's 150 mL/h. With hydration his calcium level was 11.9 by the time of discharge. He was given 3 mg of zoledronic acid on 12/06/2021. He normally receives zoledronic acid every 3 weeks at the [facility] clinic. He had a CT of the chest, thoracic and lumbar spine. This showed multiple lytic lesions throughout the visualized osseous structures consistent with multiple myeloma. This is likely contributing to his back pain. Pain was managed with oxycodone. His hemoglobin dropped to 6.9 while in the hospital. He was transfused 2 units of packed red blood cells. By time of discharge hemoglobin was 8.6. Patient's platelets have been perpetually low. On discharge platelets were 13. There was no sign of bleeding. The patient is following up at the [facility] clinic on 12/07/2021. Will be drawn and he will receive further IV hydration for the next 2 days at the [facility] clinic. He was seen by palliative care during his hospital stay and an urgent radiation oncology referral has been made. Palliative care will continue following him in the outpatient setting. No Smoking: If you smoke, Please STOP! Call for help.
[2021-12-06 16:57] LABS: BAND NEUTROPHILS % (MANUAL) 8 %; BASOPHILS # (MANUAL) 0.1 10^3/uL (0-0.1); BASOPHILS % (MANUAL) 2 %; LYMPHOCYTES # (MANUAL) 0.7 10^3/uL (1.5-3.5); LYMPHOCYTES % (MANUAL) 25 %; METAMYELOCYTES % (MANUAL) 3 %; MONOCYTES # (MANUAL) 0.3 10^3/uL (0.0-1.0); MYELOCYTES % (MANUAL) 2 %; NEUTROPHILS # (MANUAL) 1.6 10^3/uL (1.5-6.6); PLATELET ESTIMATE, MANUAL DECREASED (<130,000) (NORMAL); PLATELET MORPHOLOGY NORMAL APPEARANCE (NORMAL); PROMYELOCYTES % (MANUAL) 1 %; RBC MORPHOLOGY (MULTIPLE) 2+ ANISOCYTOSIS (NORMAL); WBC MORPHOLOGY (MULTIPLE) NORMAL APPEARANCE (NORMAL)
[2021-12-06 16:58] LABS: DIFFERENTIAL COMMENT MANUAL DIFFERENTIAL
== END 2021-12-06 17:24 | disposition home or self-care (01) | DRG 841 ==
LOC: ED 18:57 → MS2 21:49 → OBSVTOIN 12-05 16:27
PROVIDERS: ADMIT Internal Medicine; ATTEND Internal Medicine
PROC: 30233N1 Transfusion of Nonautologous Red Blood Cells into Peripheral Vein, Percutaneous Approach (ICD-10-PCS; principal; 2021-12-05)
DX: C90.02 Multiple myeloma in relapse (principal); N17.9 Acute kidney failure, unspecified; D61.818 Other pancytopenia; M54.9 Dorsalgia, unspecified; Z20.822 Contact with and (suspected) exposure to COVID-19; D69.6 Thrombocytopenia, unspecified; E83.52 Hypercalcemia; G89.3 Neoplasm related pain (acute) (chronic); D63.0 Anemia in neoplastic disease; D69.59 Other secondary thrombocytopenia; R73.9 Hyperglycemia, unspecified; R53.83 Other fatigue; F41.9 Anxiety disorder, unspecified; K59.00 Constipation, unspecified; R63.4 Abnormal weight loss; M62.81 Muscle weakness (generalized); Z51.5 Encounter for palliative care; Z68.22 Body mass index [BMI] 22.0-22.9, adult; Z85.038 Personal history of other malignant neoplasm of large intestine; Z90.49 Acquired absence of other specified parts of digestive tract
CPT/HCPCS: 36415; 71250; 72128; 72131; 80048; 80053; 81599; 83036; 83735; 84100; 85025; 86850; 86870; 86880; 86900; 86901; 86922; 87633; 96360; 99284; 99285; A9270; G0378; J3489; J7120; P9040; 86920

== ENCOUNTER 2021-12-08 11:09 | Outpatient (CLI) | payer MEDICARE, BC ==
[~2021-12-08 11:09] MED LIST: lidocaine 1% 20 ML MDV ONE
[2021-12-08] MEDS ORDERED: SODIUM CHLORIDE 0.9% 1,000 ML IV ONE ×3 (11:11→14:00)
[2021-12-08] MEDS ORDERED: fentaNYL 100 MCG/2 ML VIAL ONE (13:01)
[2021-12-08] MEDS ORDERED: MIDAZOLAM 2 MG/2 ML VIAL ONE (13:01)
[2021-12-08 15:03] VITALS: BP 139/66
--- NOTE | 2021-12-08 17:07 | CT Report ---
PROCEDURE: BONE MARROW BX Sedation analgesia for 20 minutes. INDICATIONS: COLON CA, MULTIPLE MYELOMA TECHNIQUE: The indications, alternatives, benefits, risks, and possible complications of the procedure were comm unicated to the patient. Informed written consent from the patient was obtained and placed in the art. Continuous EKG and hemodynamic monitoring was started by trained personnel. For radiation dose reduction, the following was used: automated exposure control, adjustment of mA and/or kV according to patient size. The patient was brought to the CT suite and operating table assembler spiral CT imaging was performed with localization g rid. The appropriate site for percutaneous access to the biopsy target was marked, was prepped and d raped sterilely, and was infused with local anaesthesia. Under CT guidance, a core biopsy trocar and needle set was advanced to the biopsy target, and one core marrow specimen(s) were obtained. 2 atte mpts at obtaining aspirate specimens were both unsuccessful. A third attempt at obtaining a core spec imen was also unsuccessful. The trocar and needle were then removed, and the patient was sent for pos t-procedure monitoring. COMPARISON: None. FINDINGS: Biopsy site: Right posterior iliac crest Needle: 11 gauge biopsy needle with introducer trocar. Number of passes: 4 Medications: 1% lidocaine for local anaesthesia. 50 mcg IV Fentanyl and 1 mg IV Versed for consciou s sedation for 20 minutes (see nursing record). Complications: None. IMPRESSION: 1. Successful CT-guided bone marrow core biopsy of right posterior iliac crest. 2. Unsuccessful bone marrow aspiration despite 2 attempts. Reviewed by: Estefania Garcia MD on 12/08/2021 5:06 PM PDT Approved by: Estefania Garcia MD on 12/08/2021 5:06 PM PDT Station ID: [id number]
== END 2021-12-08 11:10 | disposition home or self-care (01) ==
LOC: DI 11:09
PROVIDERS: ATTEND Internal Medicine Hematology & Oncology
DX: C90.00 Multiple myeloma not having achieved remission (principal)
CPT/HCPCS: 36415; 38221; 85049

== ENCOUNTER 2021-12-11 07:58 | Inpatient (IN) | payer MEDICARE, BC ==
[2021-12-11 08:54] LABS: BASOPHILS % (AUTO) 0.5 %; EOSINOPHILS % (AUTO) 0.9 %; LYMPHOCYTES % (AUTO) 27.6 %; MEAN CORPUSCULAR HEMOGLOBIN 31.2 pg (27.0-31.0); MEAN CORPUSCULAR HGB CONC 33.9 g/dL (32.0-36.0); MEAN CORPUSCULAR VOLUME 92.2 fL (80.0-94.0); MEAN PLATELET VOLUME 10.6 fL (7.4-11.4); MONOCYTES % (AUTO) 17.1 %; NEUTROPHILS % (AUTO) 44.2 %; RED BLOOD COUNT 2.05 10^6/uL (4.70-6.10); RED CELL DISTRIBUTION WIDTH 16.8 % (12.0-15.0); WHITE BLOOD COUNT 2.2 x10^3/uL (4.8-10.8)
[2021-12-11 09:01] LABS: HCT - HEMATOCRIT 18.9 % (42.0-52.0); HGB - HEMOGLOBIN 6.4 g/dL (14.0-18.0); PLT - PLATELET COUNT 12 10^3/uL (130-450); SLIDE REVIEW? Indicated
[2021-12-11 09:02] LABS: ABNORMAL LYMPHS % (MANUAL) 0 %
--- OUTSIDE RECORDS SUMMARY | 2021-12-11 09:02 | EXTERNAL MEDICAL SUMMARY RPT | Continuity of Care Document ---
:1945 Author Organization [facility] Address [address] [place] [address] Phone Allergies No information. Encounters No information. Functional Status No information. Immunizations No information. Medications date description facility [id number] oxycodone All [id number] oxycodone All [id number] valacyclovir All [id number]+0000 valacyclovir All Problems No information. Procedures No information. Results/Labs No information. Social History No information. Vital Signs date measurement value units [id number] BP_diastolic BP_diastolic 73 mm[H g] [id number]+0000 BP_systolic BP_systolic 114 mm[Hg] [id number]+0000 heart_rate heart_rate 120 /min [id number]+0000 respiration_rate respiration_rate 18 /min [id number]+0000 temperature_metric temperature_metric 2.72 C [id number]+0000 temperature_standard temperature_standard 3 6.9 F
[2021-12-11] MEDS ORDERED: HYDROmorphone 1 MG/ML CARPUJECT IVP STA (09:06)
[2021-12-11 09:07] LABS: ALBUMIN 2.9 g/dL (3.2-5.5); ALBUMIN/GLOBULIN RATIO 1.2 (1.0-2.2); BILIRUBIN,TOTAL 0.4 mg/dL (0.2-1.0); CALCIUM 11.7 mg/dL (8.5-10.3); POTASSIUM 4.7 mmol/L (3.5-5.0); TOTAL PROTEIN 5.3 g/dL (6.7-8.2)
--- NOTE | 2021-12-11 09:17 | ED Physician Documentation ---
History of Present Illness - Stated complaint Stated Complaint: SYNCOPE - Chief complaint Chief Complaint: Neuro - History obtained from History obtained from: Patient, EMS - Additonal information Additional information: The patient comes to the emergency department chief complaint of syncopal episode while walking this morning. Patient states that he was just feeling generally weak and suddenly felt lightheaded and as though he was going to pass out. His son was there and helped lower him to the floor. Patient was only unconscious for a couple of seconds when he regained consciousness. The patient is being treated for multiple myeloma and has been in the midst of treatment on and off for 3 years. He had a relapse 3 months ago and has been on chemotherapy. The patient has also been getting transfusions at the [facility] for chronic anemia. He had a bone biopsy in his low back several days ago, and c/o some steady oozing of bleed from the wound starting the second day afterward. Review of Systems Ten Systems: 10 systems reviewed and negative Constitutional: reports: Fatigue Eyes: reports: Reviewed and negative Ears: reports: Reviewed and negative Nose: reports: Reviewed and negative Throat: reports: Reviewed and negative Cardiac: reports: Reviewed and negative Respiratory: reports: Reviewed and negative GI: reports: Reviewed and negative : reports: Reviewed and negative Skin: reports: Reviewed and negative Musculoskeletal: reports: Reviewed and negative Neurologic: reports: Syncope Psychiatric: reports: Reviewed and negative Endocrine: reports: Reviewed and negative Immunocompromised: reports: Reviewed and negative PD PAST MEDICAL HISTORY - Past Medical History Cardiovascular: None Respiratory: None Neuro: None Endocrine/Autoimmune: None GI: Other : None Psych: None Musculoskeletal: Fatigue, Other Derm: None - Past Surgical History Past Surgical History: Yes Ortho: Spine surgery - Present Medications Home Medications: Ambulatory Orders Medication Instructions Recorded Confirmed Valacyclovir HCl [Valtrex] 500 mg PO BID 11/14/21 12/11/21 oxyCODONE [Roxicodone] 5 mg PO Q6H PRN 15 Days #60 tablet 11/27/21 12/11/21 - Allergies Allergies/Adverse Reactions: Allergies Allergy/AdvReac Type Severity Reaction Status Date / Time No Known Drug Allergies Allergy Verified 12/11/21 08:15 - Social History Does the pt smoke?: No Smoking Status: Never smoker - POLST Patient has POLST: No PD ED PE NORMAL - Vitals Vital signs reviewed: Yes - General General: Alert and oriented X 3, No acute distress, Other (Pt appears chronically ill) - HEENT HEENT: Atraumatic, PERRL, EOMI, Moist mucous membranes - Neck Neck: Supple, no meningeal sign - Cardiac Cardiac: No murmur, Strong equal pulses, Other (tachycardic rate, regular rhythm) - Respiratory Respiratory: No respiratory distress, Clear bilaterally - Abdomen Abdomen: Soft, Non tender, Non distended - Derm Derm: Warm and dry, No rash, Other (Moderate pallor; Small puncture with surrounding ecchymosis over lumbar spine, with slow but steady oozing of dark blood from wound.) - Extremities Extremities: No deformity, No edema - Neuro Neuro: Alert and oriented X 3, art glass designer 2-12 intact, Normal speech - Psych Psych: Normal mood, Normal affect Results - Vitals Vitals: Vital Signs - 24 hr 12/11/21 12/11/21 12/11/21 11:22 13:21 15:26 Temperature 36.8 C 36.8 C Heart Rate 106 H Heart Rate [ 111 H 105 H Brachial] Respiratory 16 20 18 Rate Blood Pressure 124/60 Blood Pressure 131/55 H 133/57 H [Left Brachial artery] O2 Saturation 98 97 94 12/11/21 12/11/21 12/11/21 16:13 16:15 16:31 Temperature 36.8 C 36.8 C Heart Rate Heart Rate [ 85 109 H 102 H Brachial] Respiratory 16 16 Rate Blood Pressure Blood Pressure 122/55 L 112/55 L 119/49 L [Left Brachial artery] O2 Saturation 97 97 12/11/21 12/11/21 12/11/21 16:46 16:49 18:18 Temperature 36.7 C 36.5 C Heart Rate Heart Rate [ 106 H 110 H 101 H Brachial] Respiratory 18 20 20 Rate Blood Pressure Blood Pressure 125/51 L 132/50 H 132/52 H [Left Brachial artery] O2 Saturation 97 97 96 12/11/21 12/11/21 12/11/21 18:36 18:39 18:54 Temperature 36.8 C 36.7 C Heart Rate Heart Rate [ 111 H 109 H 99 Brachial] Respiratory 18 18 18 Rate Blood Pressure Blood Pressure 137/60 H 135/51 H 130/52 L [Left Brachial artery] O2 Saturation 96 98 98 12/11/21 12/11/21 12/11/21 19:06 19:24 19:40 Temperature 36.8 C 36.7 C Heart Rate Heart Rate [ 100 98 93 Brachial] Respiratory 16 16 16 Rate Blood Pressure Blood Pressure 131/52 H 101/62 135/47 H [Left Brachial artery] O2 Saturation 97 98 99 12/11/21 12/11/21 12/11/21 20:00 20:50 21:04 Temperature 36.8 C Heart Rate Heart Rate [ 103 H 98 100 Brachial] Respiratory 20 17 17 Rate Blood Pressure Blood Pressure 137/59 H 101/60 138/55 H [Left Brachial artery] O2 Saturation 96 94 96 12/11/21 12/11/21 12/11/21 21:05 21:10 23:20 Temperature 36.8 C 36.7 C 36.7 C Heart Rate Heart Rate [ 99 100 109 H Brachial] Respiratory 18 17 17 Rate Blood Pressure Blood Pressure 135/55 H 133/55 H 137/63 H [Left Brachial artery] O2 Saturation 97 97 94 12/11/21 12/12/21 12/12/21 23:21 00:33 06:20 Temperature 36.7 C 36.6 C 36.7 C Heart Rate Heart Rate [ 109 H 104 H 116 H Brachial] Respiratory 17 18 16 Rate Blood Pressure Blood Pressure 137/63 H 126/51 L 145/71 H [Left Brachial artery] O2 Saturation 94 96 98 Oxygen O2 Source Room air - Labs Labs: Laboratory Tests 12/11/21 12/11/21 12/11/21 08:48 08:48 08:48 WBC 2.2 L RBC 2.05 L Hgb 6.4 L* Hct 18.9 L* MCV 92.2 MCH 31.2 H MCHC 33.9 RDW 16.8 H Plt Count 12 L* MPV 10.6 Neut # (Auto) Not Reportable Lymph # (Auto) Not Reportable Coffey # (Auto) Not Reportable Eos # (Auto) Not Reportable Baso # (Auto) Not Reportable Absolute Nucleated RBC Not Reportable Total Counted 100 Band Neuts % (Manual) 15 H Abnorm Lymph % (Manual) 0 Metamyelocytes % 6 H Myelocytes % 7 H Promyelocytes % 1 H Nucleated RBC % Not Reportable Neutrophils # (Manual) 1.0 L Lymphocytes # (Manual) 0.5 L Monocytes # (Manual) 0.3 Eosinophils # (Manual) 0.0 Basophils # (Manual) 0.0 Differential Comment MANUAL DIFFERENTIAL Manual Slide Review Indicated WBC Morphology 1+ TOXIC GRANULATION Platelet Estimate DECREASED (<130,000) Platelet Morphology NORMAL APPEARANCE RBC Morph Micro Appear 1+ OVALOCYTES PT INR Sodium 130 L Potassium 4.7 Chloride 97 L Carbon Dioxide 24 Anion Gap 9.0 BUN 32 H Creatinine 2.0 H Estimated GFR (MDRD) 32 L Glucose 223 H Calcium 11.7 H Total Bilirubin 0.4 AST 57 H ALT 13 Alkaline Phosphatase 63 Troponin I High Sens 5.8 Total Protein 5.3 L Albumin 2.9 L Globulin 2.4 Albumin/Globulin Ratio 1.2 Lipase 27 Procalcitonin Nasal Adenovirus (PCR) Nasal B. parapertussis DNA (PCR) Nasal Coronavir 229E PCR Nasal Coronavir HKU1 PCR Nasal Coronavir NL63 PCR Nasal Coronavir OC43 PCR Nasal Enterovir/Rhinovir PCR Nasal Influenza B PCR Nasal Influenza A PCR Nasal Parainfluen 1 PCR Nasal Parainfluen 2 PCR Nasal Parainfluen 3 PCR Nasal Parainfluen 4 PCR Nasal RSV (PCR) Nasal B.pertussis DNA PCR Nasal C.pneumoniae (PCR) Lalo Human Metapneumo PCR Nasal M.pneumoniae (PCR) Nasal SARS-CoV-2 (PCR) Blood Type Antibody Screen Antibody Identification TANI, IgG Specific TANI, C3d Specific Crossmatch 12/11/21 12/11/21 12/11/21 09:09 09:09 12:36 WBC RBC Hgb Hct MCV MCH MCHC RDW Plt Count MPV Neut # (Auto) Lymph # (Auto) Coffey # (Auto) Eos # (Auto) Baso # (Auto) Absolute Nucleated RBC Total Counted Band Neuts % (Manual) Abnorm Lymph % (Manual) Metamyelocytes % Myelocytes % Promyelocytes % Nucleated RBC % Neutrophils # (Manual) Lymphocytes # (Manual) Monocytes # (Manual) Eosinophils # (Manual) Basophils # (Manual) Differential Comment Manual Slide Review WBC Morphology Platelet Estimate Platelet Morphology RBC Morph Micro Appear PT 12.7 H INR 1.1 Sodium Potassium Chloride Carbon Dioxide Anion Gap BUN Creatinine Estimated GFR (MDRD) Glucose Calcium Total Bilirubin AST ALT Alkaline Phosphatase Troponin I High Sens Total Protein Albumin Globulin Albumin/Globulin Ratio Lipase Procalcitonin Nasal Adenovirus (PCR) NOT DETECTED Nasal B. parapertussis DNA (PCR) NOT DETECTED Nasal Coronavir 229E PCR NOT DETECTED Nasal Coronavir HKU1 PCR NOT DETECTED Nasal Coronavir NL63 PCR NOT DETECTED Nasal Coronavir OC43 PCR NOT DETECTED Nasal Enterovir/Rhinovir PCR NOT DETECTED Nasal Influenza B PCR NOT DETECTED Nasal Influenza A PCR NOT DETECTED Nasal Parainfluen 1 PCR NOT DETECTED Nasal Parainfluen 2 PCR NOT DETECTED Nasal Parainfluen 3 PCR NOT DETECTED Nasal Parainfluen 4 PCR NOT DETECTED Nasal RSV (PCR) NOT DETECTED Nasal B.pertussis DNA PCR NOT DETECTED Nasal C.pneumoniae (PCR) NOT DETECTED Lalo Human Metapneumo PCR NOT DETECTED Nasal M.pneumoniae (PCR) NOT DETECTED Nasal SARS-CoV-2 (PCR) NOT DETECTED Blood Type A POSITIVE Antibody Screen POSITIVE Antibody Identification See Comments TANI, IgG Specific POSITIVE TANI, C3d Specific NEGATIVE Crossmatch See Detail 12/12/21 12/12/21 12/12/21 04:41 04:41 04:41 WBC 2.5 L RBC 2.30 L Hgb 6.9 L* Hct 19.4 L* MCV 84.3 MCH 30.0 MCHC 35.6 RDW 17.3 H Plt Count 38 L MPV 9.1 Neut # (Auto) Not Reportable Lymph # (Auto) Not Reportable Coffey # (Auto) Not Reportable Eos # (Auto) Not Reportable Baso # (Auto) Not Reportable Absolute Nucleated RBC Not Reportable Total Counted 100 Band Neuts % (Manual) 5 Abnorm Lymph % (Manual) 0 Metamyelocytes % Myelocytes % 2 H Promyelocytes % Nucleated RBC % Not Reportable Neutrophils # (Manual) 1.3 L Lymphocytes # (Manual) 0.9 L Monocytes # (Manual) 0.3 Eosinophils # (Manual) 0.0 Basophils # (Manual) 0.0 Differential Comment MANUAL DIFFERENTIAL Manual Slide Review WBC Morphology NORMAL APPEARANCE Platelet Estimate DECREASED (<130,000) Platelet Morphology NORMAL APPEARANCE RBC Morph Micro Appear 1+ TEARDROP CELLS PT INR Sodium 133 L Potassium 4.7 Chloride 102 Carbon Dioxide 24 Anion Gap 7.0 BUN 32 H Creatinine 1.8 H Estimated GFR (MDRD) 37 L Glucose 119 H Calcium 10.9 H Total Bilirubin AST ALT Alkaline Phosphatase Troponin I High Sens Total Protein Albumin Globulin Albumin/Globulin Ratio Lipase Procalcitonin 2.34 H* Nasal Adenovirus (PCR) Nasal B. parapertussis DNA (PCR) Nasal Coronavir 229E PCR Nasal Coronavir HKU1 PCR Nasal Coronavir NL63 PCR Nasal Coronavir OC43 PCR Nasal Enterovir/Rhinovir PCR Nasal Influenza B PCR Nasal Influenza A PCR Nasal Parainfluen 1 PCR Nasal Parainfluen 2 PCR Nasal Parainfluen 3 PCR Nasal Parainfluen 4 PCR Nasal RSV (PCR) Nasal B.pertussis DNA PCR Nasal C.pneumoniae (PCR) Lalo Human Metapneumo PCR Nasal M.pneumoniae (PCR) Nasal SARS-CoV-2 (PCR) Blood Type Antibody Screen Antibody Identification TANI, IgG Specific TANI, C3d Specific Crossmatch PD MEDICAL DECISION MAKING - ED course Complexity details: reviewed results, re-evaluated patient, considered differential, d/w patient, d/w family ED course: PT was treated with IV fluid bolus and Dilaudid. He was worked up with labs, which showed renal insufficiency at baseline, as well as platelet count of 12 and hemoglobin of 6.5. Pt remained mildly tachycardic, but without hypotension. I ordered transfusion of both platelets and packed RBCs. I discussed the case with Dr. Saucedo, who agreed to admit the pt to his service. Departure - Departure Disposition: 66 [facility] DC/Xfer Clinical Impression: Severe anemia, Thrombocytopenia, Syncope and collapse Condition: Serious Discharge Date/Time: 12/11/21 12:55
[2021-12-11 09:48] LABS: BAND NEUTROPHILS % (MANUAL) 15 %; LYMPHOCYTES # (MANUAL) 0.5 10^3/uL (1.5-3.5); LYMPHOCYTES % (MANUAL) 24 %; METAMYELOCYTES % (MANUAL) 6 %; MONOCYTES # (MANUAL) 0.3 10^3/uL (0.0-1.0); MYELOCYTES % (MANUAL) 7 %; PROMYELOCYTES % (MANUAL) 1 %
[2021-12-11 09:51] LABS: PLATELET ESTIMATE, MANUAL DECREASED (<130,000) (NORMAL); PLATELET MORPHOLOGY NORMAL APPEARANCE (NORMAL); WBC MORPHOLOGY (MULTIPLE) 1+ TOXIC GRANULATION (NORMAL)
[2021-12-11 09:52] LABS: DIFFERENTIAL COMMENT MANUAL DIFFERENTIAL
[2021-12-11 09:59] LABS: INR 1.1 (0.8-1.2); PT - PROTHROMBIN TIME 12.7 secs (9.9-12.6)
[2021-12-11] MEDS ORDERED: SODIUM CHLORIDE 0.9% 1,000 ML IV STA (10:09)
[2021-12-11] MEDS ORDERED: ACETAMINOPHEN 325 MG TABLET PO PRN (12:28)
[2021-12-11] MEDS ORDERED: ONDANSETRON 4 MG/2 ML VIAL IVP PRN (12:28)
[2021-12-11] MEDS ORDERED: HYDROmorphone 0.5 MG/0.5 ML SYRINGE IVP PRN (12:28)
--- NOTE | 2021-12-11 12:34 | HISTORY & PHYSICAL EXAMINATION ---
Chief Complaint - Chief Complaint Chief Complaint: syncope, bleeding History of Present Illness - Admitted From Admitted From:: [facility] ED - History Obtained From Records Reviewed: yes History obtained from: patient and - History of Present Illness HPI Comment/Other: 76-year-old male with medical history significant for multiple myeloma in relapse, history of colon cancer in remission who presents today after a syncopal episode at home and bleeding. He had a bone marrow biopsy 3 days ago. There was slight oozing from the site after the procedure but no subsequent bleeding. The patient normally sleeps in the recliner in the living room because he has not been able to go up the stairs to the bedroom since discharge from last admission on 12/06/2021. He woke up this morning to go to the bathroom and passed out. He was being help by his son to the bathroom. His son helped break the fall so he did not hurt himself. The recliner was covered in blood and the shirt he was wearing was soaked in blood. He was brought to the emergency department after the episode. Work-up in the ED included a CBC which showed a hemoglobin of 6.5 and platelet count of 12. The patient has significant bruises all over his body. He is also mildly tachycardic. As a result of this findings he was presented for admission for continued treatment. At bedside he is resting comfortably. He denies chest pain, dyspnea, abdominal pain. He was nauseous. Denies fever or chills. History - Past Medical History Cardiovascular: reports: None Respiratory: reports: None Neuro: reports: None Endocrine/Autoimmune: reports: None GI: reports: Other : reports: None Psych: reports: None Musculoskeletal: reports: Fatigue, Other Derm: reports: None MRSA Hx?: No Other Past Medical History: Multiple myeloma in relapse. Hx of colon cancer in [facility] - Past Surgical History Ortho: reports: Spine surgery Other past surgical history: Spine surgery, bone marrow biopsy - Family & Social History Family History: Mother: , Cancer, Father: Family History Comment/Other: He reports his mother was relatively healthy although she had a diagnosis of cancer late in her life. She at 97. Living Situation: With spouse/s.o. - Substance History Use: Uses substance without health or social issues: NONE - POLST Patient has POLST: No POLST Status: Full Code Meds/Allgy - Home Medications Home Medications: Ambulatory Orders Medication Instructions Recorded Confirmed Valacyclovir HCl [Valtrex] 500 mg PO BID 11/14/21 12/11/21 oxyCODONE [Roxicodone] 5 mg PO Q6H PRN 15 Days #60 tablet 11/27/21 12/11/21 - Allergies Allergies/Adverse Reactions: Allergies Allergy/AdvReac Type Severity Reaction Status Date / Time No Known Drug Allergies Allergy Verified 12/11/21 08:15 Review of Systems - Constitutional Constitutional: reports: Fatigue, Weakness. denies: Fever, Chills - Eyes Eyes: denies: Pain, Vision loss - Ears, Nose & Throat Ears, Nose & Throat: denies: Vertigo, Sore throat - Cardiovascular Cariovascular: reports: Palpitations, Syncope. denies: Chest pain - Respiratory Respiratory: denies: Cough, Wheezing, SOB at rest, SOB with exertion - Gastrointestinal Gastrointestinal: reports: Nausea. denies: Abdominal pain, Abdominal distention, Black stools, Vomiting, Coffee grounds emesis, Reflux/heartburn - Genitourinary Genitourinary: denies: Dysuria, Frequency, Urgency, Hematuria - Musculoskeletal Musculoskeletal: reports: Back pain. denies: Muscle pain, Muscle aches, Stiffness - Integumentary Integumentary: denies: Rash, Pruritis, Lesions - Neurological Neurological: reports: General weakness. denies: Headache - Psychiatric Psychiatric: denies: Depression, Anxiety - Endocrine Endocrine: denies: Polyuria, Polydypsia - Hematologic/Lymphatic Hematologic/Lymphatic: reports: Anemia, Bruising, Bleeding tendencies. denies: Petechiae Prior Level of Functionality: Patient is normally independent of activities of daily living but has been requiring some assistance lately. Since discharge from the hospital on 12/06/2021 he has been sleeping in the recliner in the living room downstairs because he is unable to take the steps up to the bedroom on the second floor. Exam - Vital Signs Vital Signs: Vital Signs x48h Temp Pulse Resp BP Pulse Ox 12/11/21 11:22 106 H 16 124/60 98 12/11/21 08:05 36.6 C 111 H 18 123/60 99 - Physical Exam General Appearance: positive: Alert, Mild distress, Moderate distress Eyes Bilateral: positive: PERRL, EOMI ENT: positive: Dry mucous membranes Neck: positive: No JVD, Trachea midline Cardiovascular: positive: Tachycardia Abdomen: positive: Non-tender, No organomegaly, Nml bowel sounds, No distention. negative: Guarding, Rebound Back: positive: Nml inspection Skin: positive: No rash, Warm, Dry, Pallor, Other (extensive bruises) Extremities: positive: Non-tender, Full ROM, No pedal edema Neurologic/Psychiatric: positive: Oriented x3, Mood/affect nml Conclusion/Plan - Problem List (1) Severe anemia Conclusion/Plan: Acutely secondary to bleeding from site of bone marrow biopsy. Chronically right likely secondary to multiple myeloma. Also easily bruises due to thrombocytopenia. Hemoglobin was 6.5 today. On 12/08/2021 hemoglobin was 8.5 2 units of packed red blood cells and 1 unit of platelets ordered for transfusion. We will recheck hemoglobin with a.m. labs (2) Syncope and collapse Conclusion/Plan: Please secondary to blood loss due to bleeding from site of bone marrow biopsy. Patient receiving IV hydration with normal saline at 100 mL/h. Patient will be transfused 2 units of packed red blood cells. (3) Thrombocytopenia Conclusion/Plan: Likely due to multiple myeloma. Platelet count was 12. Patient was bleeding from site of bone marrow biopsy. Transfusion of 1 unit of platelets. We will recheck platelets with a.m. labs. (4) Hypercalcemia Conclusion/Plan: Due to multiple myeloma. Calcium was 11.7. Patient receives zoledronic acid every 3 weeks. Last dose was last week. Hydrating with normal saline at 100 mL/h. (5) Multiple myeloma Conclusion/Plan: Patient sees Dr. Ortiz at the [facility]. Follow-up appointment is tomorrow 12/12/2021. He had a bone marrow biopsy done on 12/08/2021. Qualifiers: Multiple myeloma remission status: in relapse Qualified Code(s): C90.02 - Multiple myeloma in relapse (6) Back pain Conclusion/Plan: Secondary to lytic lesions from multiple myeloma. Pain management with oxycodone, Tylenol and Dilaudid as needed. (7) LANCE (acute kidney injury) Conclusion/Plan: Secondary to multiple myeloma. Creatinine 2.0, BUN 32. On 12/08/2021 creatinine was 1.5. Hydrating with normal saline at 100 mL/h. - Lab Results Fish Bones: 12/11/21 08:48 12/11/21 08:48 Core Measures - Anticipated LOS I expect patient to be DC'd or transferred within 96 hours.: Yes - DVT/VTE - Prophylaxis VTE/DVT Device ordered at admit?: Yes VTE/DVT Prophylaxis med ordered at admit?: No
[2021-12-11 13:32] LABS: B. PARAPERTUSSIS- RESP PCR PAN NOT DETECTED; B. PERTUSSIS- RESP PCR PANEL NOT DETECTED; C. PNEUMONIAE- RESP PCR PANEL NOT DETECTED; CORONAVIRUS 229E-RESP PCR NOT DETECTED; CORONAVIRUS HKU1-RESP PCR NOT DETECTED; CORONAVIRUS NL63-RESP PCR NOT DETECTED; CORONAVIRUS OC43-RESP PCR NOT DETECTED; HUMAN METAPNEUMOVIRUS NOT DETECTED; INFLUENZA A- RESP PCR PANEL NOT DETECTED; INFLUENZA B - RESP PCR PANEL NOT DETECTED; M. PNEUMONIAE- RESP PCR PANEL NOT DETECTED; PARAINFLUENZA VIRUS 1 NOT DETECTED; PARAINFLUENZA VIRUS 2 NOT DETECTED; PARAINFLUENZA VIRUS 3 NOT DETECTED; PARAINFLUENZA VIRUS 4 NOT DETECTED; RHINOVIRUS/ENTEROVIRUS NOT DETECTED; RSV- RESP PCR PANEL NOT DETECTED; SARS-CoV-2 -RESP PCR PANEL NOT DETECTED
[2021-12-11] MEDS: oxyCODONE 5 MG TABLET PO PRN ×2 (13:41→23:00)
[2021-12-11] MEDS: SODIUM CHLORIDE 0.9% 1,000 ML IV SCH (13:41)
[2021-12-11] MEDS: SODIUM CHLORIDE FLUSH 0.9% 10 ML SYRINGE IVP SCH (17:15)
[2021-12-12] MEDS: SODIUM CHLORIDE FLUSH 0.9% 10 ML SYRINGE IVP SCH ×3 (00:39→18:28)
[2021-12-12] MEDS: oxyCODONE 5 MG TABLET PO PRN ×5 (03:18→22:23)
[2021-12-12 04:52] LABS: BASOPHILS % (AUTO) 0.4 %; EOSINOPHILS % (AUTO) 0.8 %; LYMPHOCYTES % (AUTO) 35.1 %; MEAN CORPUSCULAR HGB CONC 35.6 g/dL (32.0-36.0); MEAN CORPUSCULAR VOLUME 84.3 fL (80.0-94.0); MEAN PLATELET VOLUME 9.1 fL (7.4-11.4); NEUTROPHILS % (AUTO) 37.9 %; PLT - PLATELET COUNT 38 10^3/uL (130-450); RED CELL DISTRIBUTION WIDTH 17.3 % (12.0-15.0); WHITE BLOOD COUNT 2.5 x10^3/uL (4.8-10.8)
[2021-12-12 04:59] LABS: CALCIUM 10.9 mg/dL (8.5-10.3); CREATININE 1.8 mg/dL (0.6-1.2); POTASSIUM 4.7 mmol/L (3.5-5.0)
[2021-12-12 05:11] LABS: HCT - HEMATOCRIT 19.4 % (42.0-52.0); HGB - HEMOGLOBIN 6.9 g/dL (14.0-18.0)
[2021-12-12 05:12] LABS: ABNORMAL LYMPHS % (MANUAL) 0 %
[2021-12-12 05:17] LABS: BAND NEUTROPHILS % (MANUAL) 5 %; LYMPHOCYTES # (MANUAL) 0.9 10^3/uL (1.5-3.5); LYMPHOCYTES % (MANUAL) 34 %; MONOCYTES # (MANUAL) 0.3 10^3/uL (0.0-1.0); MYELOCYTES % (MANUAL) 2 %; NEUTROPHILS # (MANUAL) 1.3 10^3/uL (1.5-6.6)
[2021-12-12 05:19] LABS: DIFFERENTIAL COMMENT MANUAL DIFFERENTIAL; PLATELET ESTIMATE, MANUAL DECREASED (<130,000) (NORMAL); PLATELET MORPHOLOGY NORMAL APPEARANCE (NORMAL); WBC MORPHOLOGY (MULTIPLE) NORMAL APPEARANCE (NORMAL)
[2021-12-12] MEDS: SODIUM CHLORIDE 0.9% 1,000 ML IV SCH ×3 (06:16→20:21)
--- NOTE | 2021-12-12 07:30 | PROVIDER PROGRESS NOTE ---
Assessment/Plan - Problem List (1) Sepsis Assessment/Plan: Patient has been tachycardic with heart rate around 116. White blood cell count 2.5. Procalcitonin 2.3. Cannot rule out pneumonia. Chest x-ray done 12/12/2021 showed left basilar infiltrate or atelectasis Also patient has a wound on the gluteal area for which he saw wound care at the [facility] today 12/12/21 Given patient's immune compromised state due to multiple myeloma, Suspicion for infection is high. Blood cultures drawn. Empiric antibiotics: Vancomycin, Zosyn and azithromycin initiated. (2) Severe anemia Assessment/Plan: Acutely secondary to bleeding from site of bone marrow biopsy. Chronically right likely secondary to multiple myeloma. Also easily bruises due to thrombocytopenia. Hemoglobin was 6.9 today after 2 units PRBC transfused last night. Another 2 units PRBC ordered (3) Syncope and collapse Assessment/Plan: Likely secondary to blood loss due to bleeding from site of bone marrow biopsy. Patient receiving IV hydration with normal saline at 100 mL/h. Patient was transfused 2 units of packed red blood cells. Hgb 6.9 post transfusion. Patient will be transfused another 2 units of PRBC's today (4) Thrombocytopenia Assessment/Plan: Likely due to multiple myeloma. Platelet count at admission was 12. Patient was bleeding from site of bone marrow biopsy. Transfusion of 1 unit of platelets. Recheck platelet count this morning was 38 (5) Hypercalcemia Assessment/Plan: Due to multiple myeloma. Calcium improved from 11.7 to 10.9. Patient receives zoledronic acid every 3 weeks. Last dose was last week. Hydrating with normal saline at 100 mL/h. (6) Multiple myeloma Qualifiers: Multiple myeloma remission status: in relapse Qualified Code(s): C90.02 - Multiple myeloma in relapse Assessment/Plan: He was scheduled to have an follow-up oncology appointment at the [facility] today 12/12/2021. The appointment was canceled due to patient's current admission and rescheduled for next week. He had a bone marrow biopsy on 12/08/2021. (7) Back pain Assessment/Plan: Secondary to lytic lesions from multiple myeloma. Pain management with oxycodone, Tylenol and Dilaudid as needed. (8) LANCE (acute kidney injury) Assessment/Plan: Secondary to multiple myeloma. Creatinine today was 1.8, BUN 32, eGFR 37. On 12/08/2021 creatinine was 1.5. Hydrating with normal saline at 100 mL/h. - Current Meds Current Meds: Current Medications Generic Name Dose Route Start Last Admin Trade Name Freq PRN Reason Stop Dose Admin Sodium Chloride 1,000 mls @ 100 mls/hr 12/11/21 13:00 12/12/21 06:16 Normal Saline 0.9% IV 100 mls/hr .Q10H JOCELYN Administration Ondansetron HCl 4 mg 12/11/21 12:28 12/11/21 13:41 Ondansetron 4 Mg/2 Ml Vial IVP 4 mg Q6HR PRN Administration Nausea / Vomiting Oxycodone HCl 5 mg 12/11/21 12:28 12/12/21 03:18 Oxycodone 5 Mg Tablet PO 5 mg Q4HR PRN Administration Pain 5 to 7 Sodium Chloride 10 ml 12/11/21 17:00 12/12/21 00:39 Sodium Chloride Flush 0.9% 10 Ml Syringe IVP 10 ml 0100,0900,1700 JOCELYN Administration - Lab Result Fish Bone Diagrams: 12/12/21 04:41 12/12/21 04:41 - Additional Planning My Orders: My Active Orders 12/11/21 Lunch Regular Diet [DIET] 12/11/21 12:21 Activity Orders [RC] Q2HR IO [RC] IOSHIFT Incentive Spirometry - RT [RC] .tid Initiate Bowel Care Protocol [RC] .protocol Initiate Line Care Protocol [RC] QSHIFT Initiate Personal Care Protoco [RC] .protocol Oxygen Therapy [RC] .PRN Vital Signs [RC] Q4HR Sodium Chloride Flush 0.9% [Normal Saline Flush 0.9%] 10 ml IVP PRN PRN Code Status [OTHERS] Routine Condition of Patient [OTHERS] Routine DVT Prophylaxis [OTHERS] Routine 12/11/21 12:28 Telemetry- [RC] Q4HR Acetaminophen [Tylenol] 650 mg PO Q4HR PRN HYDROmorphone 0.5MG SYRINGE [Dilaudid 0.5MG Syringe] 0.5 mg IVP Q2H PRN Ondansetron Inj [Zofran Inj] 4 mg IVP Q6HR PRN oxyCODONE [Roxicodone] 5 mg PO Q4HR PRN 12/11/21 12:29 SCDs [RC] QSHIFT 12/11/21 12:31 Transfuse Platelet Pheresis Pk [RC] .ONCE Transfuse RBCs Leukoreduced [RC] .ONCE 12/11/21 13:00 Sodium Chloride 0.9% [Normal Saline 0.9%] 1,000 ml IV 100 mls/hr 12/11/21 17:00 Sodium Chloride Flush 0.9% [Normal Saline Flush 0.9%] 10 ml IVP 0100,0900,1700 12/12/21 07:25 Transfuse RBCs Leukoreduced [RC] .ONCE RBC, LEUKOREDUCED Stat TYPE AND SCREEN Stat 12/12/21 07:28 Admit [Admit \ Transfer \ Status] [RC] .ONCE 12/12/21 07:29 PROCALCITONIN [IAI] Stat 12/13/21 05:00 BMP - BASIC METABOLIC PANEL [CHEM] DAILYLAB CBC - COMP BLD CT W/AUTO DIFF [HEME] DAILYLAB 12/14/21 05:00 BMP - BASIC METABOLIC PANEL [CHEM] DAILYLAB CBC - COMP BLD CT W/AUTO DIFF [HEME] DAILYLAB 12/15/21 05:00 BMP - BASIC METABOLIC PANEL [CHEM] DAILYLAB CBC - COMP BLD CT W/AUTO DIFF [HEME] DAILYLAB 12/16/21 05:00 BMP - BASIC METABOLIC PANEL [CHEM] DAILYLAB CBC - COMP BLD CT W/AUTO DIFF [HEME] DAILYLAB Subjective - Subjective Patient Reports: Other (Patient was resting comfortably in bed. He denied any significant complaints. He has been persistently tachycardic today. After 2 units of packed red blood cells hemoglobin was 6.9. Procalcitonin checked was 2.4) Objective Vital Signs: Vital Signs - 24 hr 12/11/21 12/11/21 12/11/21 08:05 11:22 13:21 Temperature 36.6 C 36.8 C Heart Rate 111 H 106 H Heart Rate [ 111 H Brachial] Respiratory 18 16 20 Rate Blood Pressure 123/60 124/60 Blood Pressure 131/55 H [Left Brachial artery] O2 Saturation 99 98 97 12/11/21 12/11/21 12/11/21 15:26 16:13 16:15 Temperature 36.8 C 36.8 C Heart Rate Heart Rate [ 105 H 85 109 H Brachial] Respiratory 18 16 Rate Blood Pressure Blood Pressure 133/57 H 122/55 L 112/55 L [Left Brachial artery] O2 Saturation 94 97 12/11/21 12/11/21 12/11/21 16:31 16:46 16:49 Temperature 36.8 C 36.7 C Heart Rate Heart Rate [ 102 H 106 H 110 H Brachial] Respiratory 16 18 20 Rate Blood Pressure Blood Pressure 119/49 L 125/51 L 132/50 H [Left Brachial artery] O2 Saturation 97 97 97 12/11/21 12/11/21 12/11/21 18:18 18:36 18:39 Temperature 36.5 C 36.8 C Heart Rate Heart Rate [ 101 H 111 H 109 H Brachial] Respiratory 20 18 18 Rate Blood Pressure Blood Pressure 132/52 H 137/60 H 135/51 H [Left Brachial artery] O2 Saturation 96 96 98 12/11/21 12/11/21 12/11/21 18:54 19:06 19:24 Temperature 36.7 C 36.8 C Heart Rate Heart Rate [ 99 100 98 Brachial] Respiratory 18 16 16 Rate Blood Pressure Blood Pressure 130/52 L 131/52 H 101/62 [Left Brachial artery] O2 Saturation 98 97 98 12/11/21 12/11/21 12/11/21 19:40 20:00 20:50 Temperature 36.7 C Heart Rate Heart Rate [ 93 103 H 98 Brachial] Respiratory 16 20 17 Rate Blood Pressure Blood Pressure 135/47 H 137/59 H 101/60 [Left Brachial artery] O2 Saturation 99 96 94 12/11/21 12/11/21 12/11/21 21:04 21:05 21:10 Temperature 36.8 C 36.8 C 36.7 C Heart Rate Heart Rate [ 100 99 100 Brachial] Respiratory 17 18 17 Rate Blood Pressure Blood Pressure 138/55 H 135/55 H 133/55 H [Left Brachial artery] O2 Saturation 96 97 97 12/11/21 12/11/21 12/12/21 23:20 23:21 00:33 Temperature 36.7 C 36.7 C 36.6 C Heart Rate Heart Rate [ 109 H 109 H 104 H Brachial] Respiratory 17 17 18 Rate Blood Pressure Blood Pressure 137/63 H 137/63 H 126/51 L [Left Brachial artery] O2 Saturation 94 94 96 12/12/21 06:20 Temperature 36.7 C Heart Rate Heart Rate [ 116 H Brachial] Respiratory 16 Rate Blood Pressure Blood Pressure 145/71 H [Left Brachial artery] O2 Saturation 98 Oxygen O2 Source Room air I&O (Last 24 Hrs): Intake and Output Totals x24h 12/10/21 12/11/21 12/12/21 23:59 23:59 23:59 Intake Total 2183.333 626.667 Output Total 1270 775 Balance 913.333 -148.333 General: Alert, Oriented x3, Mild distress, Moderate distress HEENT: PERRLA, EOMI Neck: Supple, No JVD Neuro: Alert, Non Focal, Oriented Times 3 Cardiovascular: Other (Sinus tachycardia) Respiratory: Chest non-tender, No respiratory distress, Breath sounds nml Abdomen: Normal bowel sounds, Soft, No tenderness, No masses Extremities: No clubbing, No cyanosis, No edema, No tenderness/swelling Comments/Notes: significant bruising on upper extremities - Results Results: Laboratory Results WBC 2.5 x10^3/uL (4.8-10.8) L 12/12/21 04:41 RBC 2.30 10^6/uL (4.70-6.10) L 12/12/21 04:41 Hgb 6.9 g/dL (14.0-18.0) L* 12/12/21 04:41 Hct 19.4 % (42.0-52.0) L* 12/12/21 04:41 MCV 84.3 fL (80.0-94.0) 12/12/21 04:41 MCH 30.0 pg (27.0-31.0) 12/12/21 04:41 MCHC 35.6 g/dL (32.0-36.0) 12/12/21 04:41 RDW 17.3 % (12.0-15.0) H 12/12/21 04:41 Plt Count 38 10^3/uL (130-450) L 12/12/21 04:41 MPV 9.1 fL (7.4-11.4) 12/12/21 04:41 Neut # (Auto) Not Reportable 12/12/21 04:41 Lymph # (Auto) Not Reportable 12/12/21 04:41 Dixie # (Auto) Not Reportable 12/12/21 04:41 Eos # (Auto) Not Reportable 12/12/21 04:41 Baso # (Auto) Not Reportable 12/12/21 04:41 Absolute Nucleated RBC Not Reportable 12/12/21 04:41 Total Counted 100 12/12/21 04:41 Band Neuts % (Manual) 5 % (0-10) 12/12/21 04:41 Abnorm Lymph % (Manual) 0 % 12/12/21 04:41 Metamyelocytes % 6 % (-0) H 12/11/21 08:48 Myelocytes % 2 % (-0) H 12/12/21 04:41 Promyelocytes % 1 % (-0) H 12/11/21 08:48 Nucleated RBC % Not Reportable 12/12/21 04:41 Neutrophils # (Manual) 1.3 10^3/uL (1.5-6.6) L 12/12/21 04:41 Lymphocytes # (Manual) 0.9 10^3/uL (1.5-3.5) L 12/12/21 04:41 Monocytes # (Manual) 0.3 10^3/uL (0.0-1.0) 12/12/21 04:41 Eosinophils # (Manual) 0.0 10^3/uL (0-0.7) 12/12/21 04:41 Basophils # (Manual) 0.0 10^3/uL (0-0.1) 12/12/21 04:41 Differential Comment MANUAL DIFFERENTIAL 12/12/21 04:41 Manual Slide Review Indicated 12/11/21 08:48 WBC Morphology NORMAL APPEARANCE (NORMAL) 12/12/21 04:41 Platelet Estimate DECREASED (<130,000) (NORMAL) 12/12/21 04:41 Platelet Morphology NORMAL APPEARANCE (NORMAL) 12/12/21 04:41 RBC Morph Micro Appear 1+ ANISOCYTOSIS (NORMAL) 1+ HYPOCHROMASIA (NORMAL) 1+ SCHISTOCYTES (NORMAL) 1+ TEARDROP CELLS (NORMAL) 12/12/21 04:41 RBC Morph Micro Appear 1+ ANISOCYTOSIS (NORMAL) 1+ HYPOCHROMASIA (NORMAL) 1+ SCHISTOCYTES (NORMAL) 1+ TEARDROP CELLS (NORMAL) 12/12/21 04:41 RBC Morph Micro Appear 1+ ANISOCYTOSIS (NORMAL) 1+ HYPOCHROMASIA (NORMAL) 1+ SCHISTOCYTES (NORMAL) 1+ TEARDROP CELLS (NORMAL) 12/12/21 04:41 RBC Morph Micro Appear 1+ ANISOCYTOSIS (NORMAL) 1+ HYPOCHROMASIA (NORMAL) 1+ SCHISTOCYTES (NORMAL) 1+ TEARDROP CELLS (NORMAL) 12/12/21 04:41 PT 12.7 secs (9.9-12.6) H 12/11/21 09:09 INR 1.1 (0.8-1.2) 12/11/21 09:09 Sodium 133 mmol/L (135-145) L 12/12/21 04:41 Potassium 4.7 mmol/L (3.5-5.0) 12/12/21 04:41 Chloride 102 mmol/L (101-111) 12/12/21 04:41 Carbon Dioxide 24 mmol/L (21-32) 12/12/21 04:41 Anion Gap 7.0 (6-13) 12/12/21 04:41 BUN 32 mg/dL (6-20) H 12/12/21 04:41 Creatinine 1.8 mg/dL (0.6-1.2) H 12/12/21 04:41 Estimated GFR (MDRD) 37 (>89) L 12/12/21 04:41 Glucose 119 mg/dL (70-100) H 12/12/21 04:41 Calcium 10.9 mg/dL (8.5-10.3) H 12/12/21 04:41 Total Bilirubin 0.4 mg/dL (0.2-1.0) 12/11/21 08:48 AST 57 IU/L (10-42) H 12/11/21 08:48 ALT 13 IU/L (10-60) 12/11/21 08:48 Alkaline Phosphatase 63 IU/L (42-121) 12/11/21 08:48 Troponin I High Sens 5.8 ng/L (2.3-19.7) 12/11/21 08:48 Total Protein 5.3 g/dL (6.7-8.2) L 12/11/21 08:48 Albumin 2.9 g/dL (3.2-5.5) L 12/11/21 08:48 Globulin 2.4 g/dL (2.1-4.2) 12/11/21 08:48 Albumin/Globulin Ratio 1.2 (1.0-2.2) 12/11/21 08:48 Lipase 27 U/L (22-51) 12/11/21 08:48 Nasal Adenovirus (PCR) NOT DETECTED 12/11/21 12:36 Nasal B. parapertussis DNA (PCR) NOT DETECTED 12/11/21 12:36 Nasal Coronavir 229E PCR NOT DETECTED 12/11/21 12:36 Nasal Coronavir HKU1 PCR NOT DETECTED 12/11/21 12:36 Nasal Coronavir NL63 PCR NOT DETECTED 12/11/21 12:36 Nasal Coronavir OC43 PCR NOT DETECTED 12/11/21 12:36 Nasal Enterovir/Rhinovir PCR NOT DETECTED 12/11/21 12:36 Nasal Influenza B PCR NOT DETECTED 12/11/21 12:36 Nasal Influenza A PCR NOT DETECTED 12/11/21 12:36 Nasal Parainfluen 1 PCR NOT DETECTED 12/11/21 12:36 Nasal Parainfluen 2 PCR NOT DETECTED 12/11/21 12:36 Nasal Parainfluen 3 PCR NOT DETECTED 12/11/21 12:36 Nasal Parainfluen 4 PCR NOT DETECTED 12/11/21 12:36 Nasal RSV (PCR) NOT DETECTED 12/11/21 12:36 Nasal B.pertussis DNA PCR NOT DETECTED 12/11/21 12:36 Nasal C.pneumoniae (PCR) NOT DETECTED 12/11/21 12:36 Lalo Human Metapneumo PCR NOT DETECTED 12/11/21 12:36 Nasal M.pneumoniae (PCR) NOT DETECTED 12/11/21 12:36 Nasal SARS-CoV-2 (PCR) NOT DETECTED 12/11/21 12:36 Blood Type A POSITIVE 12/11/21 09:09 Antibody Screen POSITIVE 12/11/21 09:09 Antibody Identification See Comments 12/11/21 09:09 TANI, IgG Specific POSITIVE 12/11/21 09:09 TANI, C3d Specific NEGATIVE 12/11/21 09:09 Crossmatch See Detail 12/11/21 09:09 - Procedures Procedures: Procedures TRANSFUSE NONAUT RED BLOOD CELLS IN PERIPH VEIN, PERC (12/05/21) ABX Reporting Has patient been on IV antibiotics over the past 48 hours?: Yes
--- NOTE | 2021-12-12 09:12 | XRAY Report ---
PROCEDURE: Chest 1 View X-Ray INDICATIONS: leukopenia, tachycardia TECHNIQUE: One view of the chest was acquired. COMPARISON: CT chest without, 12/04/2021. FINDINGS: Surgical changes and devices: None. Lungs and pleura: Left basilar opacity may be infiltrate or atelectasis. No pleural effusions or pne umothorax. Mediastinum: Mediastinal contours appear normal. Heart size is normal. Bones and chest wall: No suspicious bony lesions. Overlying soft tissues appear unremarkable. Exte nsive postsurgical changes in thoracic spine. IMPRESSION: 1. Left basilar infiltrate or atelectasis. Reviewed by: India Bradley MD on 12/12/2021 9:11 AM PDT Approved by: India Bradley MD on 12/12/2021 9:11 AM PDT Station ID: [id number]
[2021-12-12] MEDS: PIPERACILLIN/TAZOBACTAM 2.25 GM in SODIUM CHLORIDE 0.9% MINIBAG 100 ML IV SCH ×3 (09:18→18:27)
[2021-12-12] MEDS ORDERED: VANCOMYCIN INJ 1 GM, VANCOMYCIN INJ 500 MG in SODIUM CHLORIDE 0.9% 500 ML IV ONE (10:00)
[2021-12-12] MEDS: polyethylene glycoL 3350 17 GM PACKET PO SCH (10:13)
[2021-12-12] MEDS: SENNA 8.6 MG TABLET PO PRN (12:01)
[2021-12-12] MEDS: DOCUSATE SODIUM 250 MG CAPSULE PO PRN (12:01)
[2021-12-12 12:50] LABS: BILIRUBIN,URINE NEGATIVE (NEGATIVE); GLUCOSE, URINE (UA) NEGATIVE (NEGATIVE); KETONES,URINE (UA) NEGATIVE (NEGATIVE); LEUKOCYTE ESTERASE, URINE NEGATIVE (NEGATIVE); NITRITE,URINE NEGATIVE (NEGATIVE); OCCULT BLOOD,URINE TRACE-INTA (NEGATIVE); PH,URINE 5.5 PH (5.0-7.5); PROTEIN,URINE TRACE mg/dL (NEGATIVE); UROBILINOGEN,URINE 0.2 (NORMAL) E.U./dL (NORMAL)
[2021-12-12 12:56] LABS: CLARITY,URINE CLEAR (CLEAR)
--- NOTE | 2021-12-12 14:23 | WOUND CARE PROGRESS NOTE ---
Assessment/Plan - Problem List (1) Open wound of perineum Assessment/Plan: Patient seen in room 2202 for assessment of Left perineum S/p abscess that was I&D'd leaving an open wound. History of wound vac x 4 weeks. Completely healed today. Plan of care: Healed area cleansed with normal saline. Area dressed with AMD packing strip and a thin duoderm to protect newly healed tissue while hospitalized. No further wound care needed at this time. Patient may RTC prn wounding. - Results Lab Results: Laboratory Results Sodium 133 mmol/L (135-145) L 12/12/21 04:41 Potassium 4.7 mmol/L (3.5-5.0) 12/12/21 04:41 Chloride 102 mmol/L (101-111) 12/12/21 04:41 Carbon Dioxide 24 mmol/L (21-32) 12/12/21 04:41 Anion Gap 7.0 (6-13) 12/12/21 04:41 BUN 32 mg/dL (6-20) H 12/12/21 04:41 Creatinine 1.8 mg/dL (0.6-1.2) H 12/12/21 04:41 Glucose 119 mg/dL (70-100) H 12/12/21 04:41 Calcium 10.9 mg/dL (8.5-10.3) H 12/12/21 04:41 Total Bilirubin 0.4 mg/dL (0.2-1.0) 12/11/21 08:48 AST 57 IU/L (10-42) H 12/11/21 08:48 ALT 13 IU/L (10-60) 12/11/21 08:48 Alkaline Phosphatase 63 IU/L (42-121) 12/11/21 08:48 Total Protein 5.3 g/dL (6.7-8.2) L 12/11/21 08:48 Albumin 2.9 g/dL (3.2-5.5) L 12/11/21 08:48 Globulin 2.4 g/dL (2.1-4.2) 12/11/21 08:48 Albumin/Globulin Ratio 1.2 (1.0-2.2) 12/11/21 08:48 - Home Meds/Allergies Allergies No Known Drug Allergies Allergy (Verified 12/11/21 08:15) - Additional Planning Condition/Complexity: Improved (Healed) Plan Discussed with:: Patient, Family Objective General: Alert, Oriented x3, Cooperative, No acute distress - Wound Assessment Wound #1: left perineum The wound is completely healed today. 100% epithelial tissue. There is no drainage. Periwound WNL. No odor. No edema. No open wound wound at this time. The patient denies pain. No s/s infection. Subjective - Subjective Patient Reports: Other (Inpatient, room 2202.) Meds/Allgy - Home Medications Home Medications: Ambulatory Orders Medication Instructions Recorded Confirmed Valacyclovir HCl [Valtrex] 500 mg PO BID 11/14/21 12/11/21 oxyCODONE [Roxicodone] 5 mg PO Q6H PRN 15 Days #60 tablet 11/27/21 12/11/21 - Allergies Allergies/Adverse Reactions: Allergies Allergy/AdvReac Type Severity Reaction Status Date / Time No Known Drug Allergies Allergy Verified 12/11/21 08:15
--- NOTE | 2021-12-12 14:51 | PHARMACY PROGRESS NOTE ---
- Best Possible Medication History Admit Date and Time: 12/12/2128 Processed by: Nursing Medication History completed: Yes As the person ultimately responsible for medication therapy, providers are able to order a medication from an existing home medication list in [facility] via the "Reconcile Routine" prior to Confirmation of that medication by rn support services. Such practice is discouraged except when the physician, in their clinical judgment, deems that a medical need exists for a medication without regard to previous use.
[2021-12-12] MEDS: AZITHROMYCIN INJ 500 MG in SODIUM CHLORIDE 0.9% 250 ML IV SCH (19:09)
[2021-12-13] MEDS: SODIUM CHLORIDE FLUSH 0.9% 10 ML SYRINGE IVP SCH ×4 (00:09→23:45)
[2021-12-13] MEDS: PIPERACILLIN/TAZOBACTAM 2.25 GM in SODIUM CHLORIDE 0.9% MINIBAG 100 ML IV SCH ×5 (00:09→23:40)
[2021-12-13] MEDS: SODIUM CHLORIDE 0.9% 1,000 ML IV SCH (03:16)
[2021-12-13] MEDS: oxyCODONE 5 MG TABLET PO PRN ×6 (04:20→22:05)
[2021-12-13 05:41] LABS: BASOPHILS % (AUTO) 0.5 %; EOSINOPHILS % (AUTO) 1.5 %; HCT - HEMATOCRIT 24.2 % (42.0-52.0); HGB - HEMOGLOBIN 8.7 g/dL (14.0-18.0); LYMPHOCYTES % (AUTO) 39.7 %; MEAN CORPUSCULAR HEMOGLOBIN 30.5 pg (27.0-31.0); MEAN CORPUSCULAR VOLUME 84.9 fL (80.0-94.0); MEAN PLATELET VOLUME 9.1 fL (7.4-11.4); MONOCYTES % (AUTO) 14.6 %; NEUTROPHILS % (AUTO) 36.7 %; RED BLOOD COUNT 2.85 10^6/uL (4.70-6.10); RED CELL DISTRIBUTION WIDTH 16.5 % (12.0-15.0)
[2021-12-13 05:42] LABS: CALCIUM 11.2 mg/dL (8.5-10.3); CREATININE 1.7 mg/dL (0.6-1.2); POTASSIUM 4.3 mmol/L (3.5-5.0)
[2021-12-13 05:55] LABS: PLT - PLATELET COUNT 19 10^3/uL (130-450)
[2021-12-13 05:56] LABS: ABNORMAL LYMPHS % (MANUAL) 0 %
[2021-12-13 06:19] LABS: BAND NEUTROPHILS % (MANUAL) 9 %; LYMPHOCYTES # (MANUAL) 0.9 10^3/uL (1.5-3.5); LYMPHOCYTES % (MANUAL) 43 %; MONOCYTES # (MANUAL) 0.2 10^3/uL (0.0-1.0); MYELOCYTES % (MANUAL) 4 %; NEUTROPHILS # (MANUAL) 0.9 10^3/uL (1.5-6.6)
[2021-12-13 06:20] LABS: PLATELET ESTIMATE, MANUAL DECREASED (<130,000) (NORMAL); PLATELET MORPHOLOGY NORMAL APPEARANCE (NORMAL)
[2021-12-13 06:21] LABS: DIFFERENTIAL COMMENT MANUAL DIFFERENTIAL; WBC MORPHOLOGY (MULTIPLE) NORMAL APPEARANCE (NORMAL)
[2021-12-13] MEDS: AZITHROMYCIN INJ 500 MG in SODIUM CHLORIDE 0.9% 250 ML IV SCH (08:51)
[2021-12-13] MEDS: polyethylene glycoL 3350 17 GM PACKET PO SCH (08:52)
[2021-12-13] MEDS: DOCUSATE SODIUM 250 MG CAPSULE PO PRN (08:52)
[2021-12-13] MEDS: SENNA 8.6 MG TABLET PO PRN (08:52)
--- NOTE | 2021-12-13 09:10 | PROVIDER PROGRESS NOTE ---
Subjective - Prog Note Date Prog Note Date: 12/13/21 - Subjective Subjective: He states his pain is not as controlled as it has been in the past. It is predominately located over his back and bilateral ribs. Denies any dyspnea or cough. His biggest concern is about going home and having recurrent episodes of bleeding causing syncope. Current Medications - Current Medications Current Medications: Active Medications Acetaminophen (Acetaminophen 325 Mg Tablet) 650 mg PO Q4HR PRN PRN Reason: Pain 1 to 4, or Fever Docusate Sodium (Docusate Sodium 250 Mg Capsule) 250 - 500 mg PO DAILY PRN PRN Reason: Constipation Last Admin: 12/13/21 08:52 Dose: 500 mg Hydromorphone HCl (Hydromorphone 0.5 Mg/0.5 Ml Syringe) 0.5 mg IVP Q2H PRN PRN Reason: Pain 8 to 10 Sodium Chloride (Normal Saline 0.9%) 1,000 mls @ 100 mls/hr IV .Q10H [facility] Last Infusion: 12/13/21 13:05 Dose: 100 mls/hr Piperacillin Sod/Tazobactam (Sod 2.25 gm/ Sodium Chloride) 100 mls @ 200 mls/hr IV Q6HR JOCELYN Last Infusion: 12/13/21 13:05 Dose: Infused Vancomycin HCl 1 gm/ Sodium (Chloride) 250 mls @ 167 mls/hr IV Q24H JOCELYN Last Admin: 12/13/21 10:06 Dose: 167 mls/hr Azithromycin 500 mg/ Sodium (Chloride) 250 mls @ 250 mls/hr IV DAILY JOCELYN Stop: 12/14/21 09:59 Last Infusion: 12/13/21 09:51 Dose: Infused Ondansetron HCl (Ondansetron 4 Mg/2 Ml Vial) 4 mg IVP Q6HR PRN PRN Reason: Nausea / Vomiting Last Admin: 12/11/21 13:41 Dose: 4 mg Oxycodone HCl (Oxycodone 5 Mg Tablet) 5 mg PO Q4HR PRN PRN Reason: Pain 5 to 7 Last Admin: 12/13/21 13:07 Dose: 5 mg Polyethylene Glycol (Polyethylene Glycol 3350 17 Gm Packet) 17 gm PO DAILY JOCELYN Last Admin: 12/13/21 08:52 Dose: 17 gm Senna (Senna 8.6 Mg Tablet) 8.6 - 17.2 mg PO DAILY PRN PRN Reason: Constipation Last Admin: 12/13/21 08:52 Dose: 17.2 mg Sodium Chloride (Sodium Chloride Flush 0.9% 10 Ml Syringe) 10 ml IVP PRN PRN PRN Reason: NEEDED PER PROVIDER ORDERS Sodium Chloride (Sodium Chloride Flush 0.9% 10 Ml Syringe) 10 ml IVP 0100,0900,1700 JOCELYN Last Admin: 12/13/21 07:55 Dose: Not Given Valacyclovir HCl [Valtrex] 500 mg PO BID 11/14/21 Objective - Vital Signs/Intake & Output Reviewed Vital Signs: Yes Vital Signs: Vital Signs x48h Temp Pulse Resp BP Pulse Ox 12/13/21 07:28 36.4 C L 106 H 20 138/64 H 96 12/13/21 06:00 36.7 C 104 H 16 145/65 H 95 Intake & Output: Intake & Output 12/10/21 12/11/21 12/12/21 12/13/21 23:59 23:59 23:59 23:59 Intake Total 2183.333 3448.334 1013.333 Output Total 1270 2475 1195 Balance 913.333 973.334 -181.667 - Objective General Appearance: positive: Alert, Mild distress Eyes Bilateral: positive: Normal inspection ENT: positive: ENT inspection nml Neck: positive: Nml inspection Respiratory: positive: No respiratory distress. negative: Wheezes, Rales Cardiovascular: positive: Tachycardia. negative: Irregularly irregular, Systolic murmur Abdomen: positive: Non-tender, No distention. negative: Tenderness Skin: positive: Warm, Dry Extremities: positive: No pedal edema Neurologic/Psychiatric: negative: Disoriented to person, Disoriented to place - Lab Results Fish Bones: 12/13/21 05:26 12/13/21 05:26 Other Labs: Lab Results x24hrs 12/13/21 12/13/21 12/12/21 Range/Units 05:26 05:26 12:45 WBC 2.0 L* (4.8-10.8) x10^3/uL RBC 2.85 L (4.70-6.10) 10^6/uL Hgb 8.7 L (14.0-18.0) g/dL Hct 24.2 L (42.0-52.0) % MCV 84.9 (80.0-94.0) fL MCH 30.5 (27.0-31.0) pg MCHC 36.0 (32.0-36.0) g/dL RDW 16.5 H (12.0-15.0) % Plt Count 19 L* (130-450) 10^3/uL MPV 9.1 (7.4-11.4) fL Neut # (Auto) Not Reportable Lymph # (Auto) Not Reportable Cherry # (Auto) Not Reportable Eos # (Auto) Not Reportable Baso # (Auto) Not Reportable Absolute Nucleated RBC Not Reportable Total Counted 100 Band Neuts % (Manual) 9 (0 - 10) % Abnorm Lymph % (Manual) 0 % Myelocytes % 4 H ( - 0) % Nucleated RBC % Not Reportable Neutrophils # (Manual) 0.9 L (1.5-6.6) 10^3/uL Lymphocytes # (Manual) 0.9 L (1.5-3.5) 10^3/uL Monocytes # (Manual) 0.2 (0.0-1.0) 10^3/uL Eosinophils # (Manual) 0.0 (0-0.7) 10^3/uL Basophils # (Manual) 0.0 (0-0.1) 10^3/uL Differential Comment MANUAL DIFFERENTIAL WBC Morphology NORMAL APPEARANCE (NORMAL) Platelet Estimate DECREASED (<130,000) (NORMAL) Platelet Morphology NORMAL APPEARANCE (NORMAL) RBC Morph Micro Appear 1+ OVALOCYTES (NORMAL) Sodium 139 (135-145) mmol/L Potassium 4.3 (3.5-5.0) mmol/L Chloride 108 (101-111) mmol/L Carbon Dioxide 24 (21-32) mmol/L Anion Gap 7.0 (6-13) BUN 25 H (6-20) mg/dL Creatinine 1.7 H (0.6-1.2) mg/dL Estimated GFR (MDRD) 39 L (>89) Glucose 106 H (70-100) mg/dL Calcium 11.2 H (8.5-10.3) mg/dL Urine Color YELLOW Urine Clarity CLEAR (CLEAR) Urine pH 5.5 (5.0-7.5) PH Ur Specific [place] 1.015 (1.002-1.030) Urine Protein TRACE (NEGATIVE) mg/dL Urine Glucose (UA) NEGATIVE (NEGATIVE) mg/dL Urine Ketones NEGATIVE (NEGATIVE) mg/dL Urine Occult Blood TRACE-INTA (NEGATIVE) Urine Nitrite NEGATIVE (NEGATIVE) Urine Bilirubin NEGATIVE (NEGATIVE) Urine Urobilinogen 0.2 (NORMAL) (NORMAL) E.U./dL Ur Leukocyte Esterase NEGATIVE (NEGATIVE) Ur Microscopic Review NOT INDICATED Urine Culture Comments NOT INDICATED Blood Type Antibody Screen Antibody Identification TANI, IgG Specific TANI, C3d Specific Crossmatch 12/11/21 Range/Units 09:09 WBC (4.8-10.8) x10^3/uL RBC (4.70-6.10) 10^6/uL Hgb (14.0-18.0) g/dL Hct (42.0-52.0) % MCV (80.0-94.0) fL MCH (27.0-31.0) pg MCHC (32.0-36.0) g/dL RDW (12.0-15.0) % Plt Count (130-450) 10^3/uL MPV (7.4-11.4) fL Neut # (Auto) Lymph # (Auto) Cherry # (Auto) Eos # (Auto) Baso # (Auto) Absolute Nucleated RBC Total Counted Band Neuts % (Manual) (0 - 10) % Abnorm Lymph % (Manual) % Myelocytes % ( - 0) % Nucleated RBC % Neutrophils # (Manual) (1.5-6.6) 10^3/uL Lymphocytes # (Manual) (1.5-3.5) 10^3/uL Monocytes # (Manual) (0.0-1.0) 10^3/uL Eosinophils # (Manual) (0-0.7) 10^3/uL Basophils # (Manual) (0-0.1) 10^3/uL Differential Comment WBC Morphology (NORMAL) Platelet Estimate (NORMAL) Platelet Morphology (NORMAL) RBC Morph Micro Appear (NORMAL) Sodium (135-145) mmol/L Potassium (3.5-5.0) mmol/L Chloride (101-111) mmol/L Carbon Dioxide (21-32) mmol/L Anion Gap (6-13) BUN (6-20) mg/dL Creatinine (0.6-1.2) mg/dL Estimated GFR (MDRD) (>89) Glucose (70-100) mg/dL Calcium (8.5-10.3) mg/dL Urine Color Urine Clarity (CLEAR) Urine pH (5.0-7.5) PH Ur Specific [place] (1.002-1.030) Urine Protein (NEGATIVE) mg/dL Urine Glucose (UA) (NEGATIVE) mg/dL Urine Ketones (NEGATIVE) mg/dL Urine Occult Blood (NEGATIVE) Urine Nitrite (NEGATIVE) Urine Bilirubin (NEGATIVE) Urine Urobilinogen (NORMAL) E.U./dL Ur Leukocyte Esterase (NEGATIVE) Ur Microscopic Review Urine Culture Comments Blood Type A POSITIVE Antibody Screen POSITIVE Antibody Identification See Comments TANI, IgG Specific POSITIVE TANI, C3d Specific NEGATIVE Crossmatch See Detail Assessment/Plan - Problem List (1) Sepsis Impression: The concern was for sepsis secondary to possible left lower lobe infiltrate. Although he has been afebrile, he has been tachycardic and his procalcitonin is elevated. He was started empirically on vancomycin, Zosyn and azithromycin. Blood cultures have been negative to date. If they remain negative for 48 hours and he has improvement in his vital signs with downtrending procalcitonin we will plan for discharge tomorrow on oral antibiotics. (2) Community acquired pneumonia Impression: Concerns for left lower lobe infiltrate and early sepsis given his tachycardia and elevated procalcitonin. He is not hypoxic. He is on vancomycin, Zosyn, azithromycin. If cultures remain negative we will look to de-escalate to Levaquin and treat for 7 days. Qualifiers: Laterality: left Lung location: lower lobe of lung Qualified Code(s): J18.9 - Pneumonia, unspecified organism (3) Syncope and collapse Impression: This was felt to be secondary to acute blood loss anemia given he had progressive symptoms of lightheadedness and weakness prior to the episode. He has been in a sinus rhythm throughout this hospitalization. An echocardiogram was not obtained given lack of murmur on exam and the fact that management would likely not change given his current goals of care. We will also discontinue telemetry. (4) Multiple myeloma Impression: He unfortunately had relapse of his multiple myeloma. He had a bone marrow biopsy on December 08 and pathology revealed a plasma cell neoplasm about 100% of plasma cells no significant maturing hematopoiesis noted. I spoke with Shoshana Can of palliative care who spoke with Dr. Hunt regarding potential treatment options/prognosis. It was felt that the patient likely would not be a candidate for treatment given the severity of his disease. This was discussed with the patient and he expressed understanding. He would like to be a DNR at this time. He is open to the idea of hospice but his concern as well as his family is that he will have recurrent episodes of bleeding which will lead to syncope. His bleeding is also been difficult to control at times and they are worried this cannot be managed at home. We discussed stopping the transfusions and to assess how he does over the next 1 to 2 days as we treat the pneumonia. The patient would still like to receive transfusions at this time if necessary but does understand that if he were to go home on hospice then we would no longer be transfusing packed red blood cells or platelets. He would like us to look into GIP and if he can go to a facility on hospice as a backup plan. We will discuss this with social work and I will speak with the consulting senior practice director to get their thoughts. Appreciate palliative care input. Qualifiers: Multiple myeloma remission status: in relapse Qualified Code(s): C90.02 - Multiple myeloma in relapse (5) Thrombocytopenia Impression: This is secondary to multiple myeloma. Platelet count remains less than 20. Given he had bleeding from the bone marrow biopsy site, we will transfuse platelets again. (6) LANCE (acute kidney injury) Impression: His creatinine was 2.0 on admission and has improved to 1.6. He has had a rise in his creatinine over the past couple months likely due to the multiple myeloma. He has these mild elevations in his creatinine in between admissions likely due to volume depletion. We will discontinue IV fluids today and monitor his renal function. Avoid nephrotoxins. (7) Anemia Impression: He has chronic anemia secondary to the myeloma but had acute on chronic blood loss to 2 hemorrhage from the bone marrow biopsy site. He has received 4 units of packed red blood cells hemoglobin is above 8. We will continue to monitor this to ensure it is stable without evidence of bleeding. (8) Hypercalcemia Impression: This is secondary to multiple myeloma and he remains hypercalcemic. This is stable at around 11. His last dose of zoledronic acid was last week and he will receive this every 3 weeks. He has been hydrated with normal saline which we will discontinue in anticipation of discharge over the next 24 to 48 hours. (9) Back pain Impression: This is secondary to the multiple myeloma. We will increase his oxycodone to 10 mg as needed. We will consider a fentanyl patch if necessary.
[2021-12-13] MEDS ORDERED: VANCOMYCIN INJ 1 GM in SODIUM CHLORIDE 0.9% 250 ML IV SCH (10:00)
--- NOTE | 2021-12-13 17:19 | CONSULTATION NOTE ---
Palliative Care Follow Up - Referral Referring Provider: Dr. Bray Time of Visit: [id number] Referral setting: Hospitalized patient Referral Reason: Multiple Myeloma/goals of care - Information Sources Records reviewed: Previous records reviewed History/Review of Systems obtained from: Patient, Family ( Ame) Exam limitations: No limitations - History of Present Illness Update Brief HPI Update: This is a 76-year-old gentleman with relapsed multiple myeloma, who has had now another acute hospitalization. Patient had a bone marrow done on 12/08 because of deteriorating status, unfortunately on 12/11 started bleeding from bone marrow site, and was admitted acutely again to the ED. Patient also showed possible infiltrate, labs continue to worsen, and today his bone marrow results are back showing plasma cell neoplasm about 100% of plasma cells. In follow-up and consult with his primary oncologist Dr. Daniel Ortiz, Patient's deteriorating counts, and fact that he has been on treatment, he has refractory disease. Given the extensive replacement of the plasma cell neoplasm in the bone marrow, is not going to be a candidate for treatment, already is transfusion dependent, and showing signs of complications with risk of infection.His recommendation is to transition to hospice, treatment at this point would be futile, the patient "wants to fight" can reach out to [facility] or you have done, though unlikely acceptance of patient but certainly an option if patient chooses. Patient also has had persistent pain secondary to lytic lesions, and persistent hypercalcemia. His kidney function continues to worsen, patient has been on hydration. Patient is feeling somewhat better though with transfusions, fluids, And is eating a little bit better. He remains quite weak. Has just received transfusion of platelets, with slight reaction of flushing. Unfortunately oncology is not available, patient prognosis is poor, and concern for continued deterioration mostly believe days to weeks, palliative care met with patient and to explore end-of-life goals.Palliative care has been meeting with patient over the last week fairly acutely, does have some rapport, but patient has had a fairly acute downhill course and both he and his appropriately are overwhelmed. Past Medical History: Original diagnosis was in 2019, has a history of colon cancer in remission, his tory of pelvic abscess recently drained, and now healed. Known soft tissue mass related to relapsed myeloma on right ribs. Recurrent hypercalcemia, recurrent acute kidney injury, persistent anemia thrombocytopenia and neutropenia. Social History - Living Situation Living arrangement: At home Living Situation: With spouse/s.o. Support System: Patient is retired, lives at home with his paul Marilyn Vincent, they have 1 son who is been actively involved. They have spent to their retired life commuting between [place] and [facility] Medications/Allergies - Medications Active Medication List: Active Medications Acetaminophen (Acetaminophen 325 Mg Tablet) 650 mg PO Q4HR PRN PRN Reason: Pain 1 to 4, or Fever Docusate Sodium (Docusate Sodium 250 Mg Capsule) 250 - 500 mg PO DAILY PRN PRN Reason: Constipation Last Admin: 12/13/21 08:52 Dose: 500 mg Hydromorphone HCl (Hydromorphone 0.5 Mg/0.5 Ml Syringe) 0.5 mg IVP Q2H PRN PRN Reason: Pain 8 to 10 Piperacillin Sod/Tazobactam (Sod 2.25 gm/ Sodium Chloride) 100 mls @ 200 mls/hr IV Q6HR JOCELYN Last Admin: 12/13/21 17:05 Dose: 200 mls/hr Vancomycin HCl 1 gm/ Sodium (Chloride) 250 mls @ 167 mls/hr IV Q24H JOCELYN Last Infusion: 12/13/21 11:40 Dose: Infused Azithromycin 500 mg/ Sodium (Chloride) 250 mls @ 250 mls/hr IV DAILY JOCELYN Stop: 12/14/21 09:59 Last Infusion: 12/13/21 09:51 Dose: Infused Ondansetron HCl (Ondansetron 4 Mg/2 Ml Vial) 4 mg IVP Q6HR PRN PRN Reason: Nausea / Vomiting Last Admin: 12/11/21 13:41 Dose: 4 mg Oxycodone HCl (Oxycodone 5 Mg Tablet) 5 mg PO Q4HR PRN PRN Reason: Pain 5 to 7 Last Admin: 12/13/21 17:05 Dose: 5 mg Polyethylene Glycol (Polyethylene Glycol 3350 17 Gm Packet) 17 gm PO DAILY JOCELYN Last Admin: 12/13/21 08:52 Dose: 17 gm Senna (Senna 8.6 Mg Tablet) 8.6 - 17.2 mg PO DAILY PRN PRN Reason: Constipation Last Admin: 12/13/21 08:52 Dose: 17.2 mg Sodium Chloride (Sodium Chloride Flush 0.9% 10 Ml Syringe) 10 ml IVP PRN PRN PRN Reason: NEEDED PER PROVIDER ORDERS Sodium Chloride (Sodium Chloride Flush 0.9% 10 Ml Syringe) 10 ml IVP 0100,0900,1700 JOCELYN Last Admin: 12/13/21 17:04 Dose: 10 ml Valacyclovir HCl [Valtrex] 500 mg PO BID 11/14/21 - Allergies Allergies/Adverse Reactions: Allergies Allergy/AdvReac Type Severity Reaction Status Date / Time No Known Drug Allergies Allergy Verified 12/11/21 08:15 Review of Systems - Constitutional Constitutional: reports: Fatigue, Weakness, Poor appetite, Weight loss (190 with healthy weight/ 176) - Ears, Nose & Throat Ears, Nose & Throat: reports: Dry mouth - Cardiovascular Cardiovascular: reports: Lightheadedness, Exertional dyspnea, Decr. exercise tolerance. denies: Edema - Respiratory Respiratory: reports: SOB with exertion. denies: SOB at rest - Gastrointestinal Gastrointestinal: reports: Poor appetite, Early satiety - Genitourinary Genitourinary: reports: Frequency - Musculoskeletal Musculoskeletal: reports: Back pain, Muscle aches, Stiffness, Muscle weakness, Assistive devices (walker; though patient has mostly been bedbound since hospitalization; does have a recliner at home) - Integumentary Integumentary: reports: Dryness - Neurological Neurological: reports: General weakness, Memory problems (mild STM) - Psychiatric Psychiatric: reports: Anxiety. denies: Depression - Hematologic/Lymphatic Hematologic/Lymph: reports: Anemia (receiving transfusion currently), Bruising, Recurrent infections (now presents with suspected pneumonia) - All Other Systems All Other Systems: reports: Reviewed and negative Physical Exam - Vital Signs Vital Signs: Vital Signs x48h Temp Pulse Resp BP Pulse Ox 12/13/21 15:46 37.3 C 117 H 17 160/81 H 95 12/13/21 13:58 36.3 C L 102 H 18 130/67 98 12/13/21 13:42 37.2 C 104 H 17 149/66 H 98 12/13/21 13:00 36.5 C 106 H 18 140/67 H 94 - Physical Exam General Appearance: positive: Alert, Mild distress, Anxious Eyes Bilateral: positive: Normal inspection ENT: positive: No signs of dehydration Neck: positive: Trachea midline Respiratory: positive: No respiratory distress Abdomen: positive: Soft Skin: positive: Pallor, Dryness Extremities: positive: No pedal edema Neurologic/Psychiatric: positive: Oriented x3, Depressed mood/affect, Flat affect Palliative Care - POLST Patient has POLST: No POLST Status: DNR (Please see palliative care discussion, in agreement for no CODE STATUS, this is communicated to hospitalist.) Pain: Pain unchanged Feelings of wellbeing/Perceived Quality of Life: Poor, Worsening Sleep: Variable sleep pattern Performance Status: Patient has had functional decline, both related to weight loss, muscle weakness, worsening counts and pain. - Palliative Care Discussion: Palliative care delivered the news regarding bone marrow biopsy, and oncology discussion regarding this. Answered questions as best able to, discussed prognosis very poor, and if any treatment options most likely futile. Discussed where patient wants to be for end-of-life, patient is expressing would like to be home but is worried about his . expressing concerns about their last 2 experiences with bleeding, and worried about managing him at home. Would like to support him and provide his final wishes. We also discussed other placement options of inpatient hospices of [place] possibly, patient this point would not meet GIP criteria but could transition fairly quickly, this is attracted to the that she feels quite safe and has appreciated the care here.Patient and appropriately overwhelmed, we discussed in the context of his declining health, and if he were to have an event at this point in time would recommend DO NOT RESUSCITATE, patient and in agreement and understand that this would happen in the context of his ongoing decline. Counseling provided regarding home hospice, not present for 24/7 care but available for symptom management here patient very concerned about pain and worsening pain, we did discuss in the context of this we can start with pain patch soon, have liquid medication making use to keep him comfortable. Reviewed the dying process often is like a car running out of gas, certainly at high risk for events if fell or head trauma, otherwise most likely will just get weaker and weaker.Encouraged if they have any financial/legal affairs to complete to do these fairly urgently. Did speak with the social work/discharging department, will reach out and see if [place] inpatient hospice an option as well as what can hospice.Will staff with [facility] director [place], in a.m. to see options, did speak with hospice charge nurse regarding situation and resources. Results - Lab Results Lab results reviewed: Yes Fish Bones: 12/13/21 05:26 12/13/21 05:26 Lab and Imaging Results: Lab Results x24hrs 12/13/21 12/13/21 12/11/21 Range/Units 05:26 05:26 09:09 WBC 2.0 L* (4.8-10.8) x10^3/uL RBC 2.85 L (4.70-6.10) 10^6/uL Hgb 8.7 L (14.0-18.0) g/dL Hct 24.2 L (42.0-52.0) % MCV 84.9 (80.0-94.0) fL MCH 30.5 (27.0-31.0) pg MCHC 36.0 (32.0-36.0) g/dL RDW 16.5 H (12.0-15.0) % Plt Count 19 L* (130-450) 10^3/uL MPV 9.1 (7.4-11.4) fL Neut # (Auto) Not Reportable Lymph # (Auto) Not Reportable [place] # (Auto) Not Reportable Eos # (Auto) Not Reportable Baso # (Auto) Not Reportable Absolute Nucleated RBC Not Reportable Total Counted 100 Band Neuts % (Manual) 9 (0 - 10) % Abnorm Lymph % (Manual) 0 % Myelocytes % 4 H ( - 0) % Nucleated RBC % Not Reportable Neutrophils # (Manual) 0.9 L (1.5-6.6) 10^3/uL Lymphocytes # (Manual) 0.9 L (1.5-3.5) 10^3/uL Monocytes # (Manual) 0.2 (0.0-1.0) 10^3/uL Eosinophils # (Manual) 0.0 (0-0.7) 10^3/uL Basophils # (Manual) 0.0 (0-0.1) 10^3/uL Differential Comment MANUAL DIFFERENTIAL WBC Morphology NORMAL APPEARANCE (NORMAL) Platelet Estimate DECREASED (<130,000) (NORMAL) Platelet Morphology NORMAL APPEARANCE (NORMAL) RBC Morph Micro Appear 1+ OVALOCYTES (NORMAL) Sodium 139 (135-145) mmol/L Potassium 4.3 (3.5-5.0) mmol/L Chloride 108 (101-111) mmol/L Carbon Dioxide 24 (21-32) mmol/L Anion Gap 7.0 (6-13) BUN 25 H (6-20) mg/dL Creatinine 1.7 H (0.6-1.2) mg/dL Estimated GFR (MDRD) 39 L (>89) Glucose 106 H (70-100) mg/dL Calcium 11.2 H (8.5-10.3) mg/dL Blood Type A POSITIVE Antibody Screen POSITIVE Antibody Identification See Comments TANI, IgG Specific POSITIVE TANI, C3d Specific NEGATIVE Crossmatch See Detail Impression and Recommendations - Palliative Care Impression: This is a 76-year-old gentleman with multiple myeloma, now presenting with bone marrow showing plasma cell neoplasm 100%, transfusion dependent, declining functional status, and increasing symptom burden. Unfortunately with refractory disease to treatment, patient treatment options are futile at this point in time. Goals of care conversation initiated by palliative care. Recommendations/Counseling Done: 1. Relapsed/refractory multiple myeloma. Bone marrow biopsy results available, coordination of care with oncology regarding implications. Recommendation of hospice, treatment options most likely futile and was not have enough bone marrow support to tolerate further treatment. Counseling provided regarding anticipatory guidance in the context of end-of-life decision making, patient to transition to hospice, comfort focused care. Patient and appropriately overwhelmed, will explore options for inpatient hospice versus routine home care.Psychosocial support and coordination of care provided. Counseling provided regarding CODE STATUS, in agreement regarding DN AR. Will complete POLST when discharge plan defined. 45 minutes with greater than 50% of this time and counseling regarding anti cipatory guidance, care regarding this, and coordination of care with hospital team and oncology.
[2021-12-13] MEDS ORDERED: METOPROLOL 5 MG/5 ML VIAL IVP STA (22:43)
[2021-12-14] MEDS: PIPERACILLIN/TAZOBACTAM 2.25 GM in SODIUM CHLORIDE 0.9% MINIBAG 100 ML IV SCH (05:13)
[2021-12-14] MEDS: oxyCODONE 5 MG TABLET PO PRN ×4 (05:13→21:14)
[2021-12-14] MEDS: SODIUM CHLORIDE FLUSH 0.9% 10 ML SYRINGE IVP SCH ×2 (05:28→17:08)
[2021-12-14 05:59] LABS: BASOPHILS % (AUTO) 0.5 %; HCT - HEMATOCRIT 24.7 % (42.0-52.0); HGB - HEMOGLOBIN 8.7 g/dL (14.0-18.0); LYMPHOCYTES % (AUTO) 41.8 %; MEAN CORPUSCULAR HEMOGLOBIN 30.1 pg (27.0-31.0); MEAN CORPUSCULAR HGB CONC 35.2 g/dL (32.0-36.0); MEAN CORPUSCULAR VOLUME 85.5 fL (80.0-94.0); MEAN PLATELET VOLUME 9.2 fL (7.4-11.4); MONOCYTES % (AUTO) 13.8 %; NEUTROPHILS % (AUTO) 35.8 %; PLT - PLATELET COUNT 43 10^3/uL (130-450); RED BLOOD COUNT 2.89 10^6/uL (4.70-6.10); RED CELL DISTRIBUTION WIDTH 16.5 % (12.0-15.0)
[2021-12-14 06:07] LABS: CALCIUM 11.8 mg/dL (8.5-10.3); CREATININE 1.6 mg/dL (0.6-1.2); POTASSIUM 4.1 mmol/L (3.5-5.0)
[2021-12-14 07:03] LABS: ABNORMAL LYMPHS % (MANUAL) 5 %; BAND NEUTROPHILS % (MANUAL) 4 %; LYMPHOCYTES % (MANUAL) 45 %; METAMYELOCYTES % (MANUAL) 1 %; MONOCYTES # (MANUAL) 0.2 10^3/uL (0.0-1.0); MYELOCYTES % (MANUAL) 3 %; NEUTROPHILS # (MANUAL) 0.8 10^3/uL (1.5-6.6)
[2021-12-14 07:04] LABS: DIFFERENTIAL COMMENT MANUAL DIFFERENTIAL; PLATELET ESTIMATE, MANUAL DECREASED (<130,000) (NORMAL); PLATELET MORPHOLOGY NORMAL APPEARANCE (NORMAL); WBC MORPHOLOGY (MULTIPLE) NORMAL APPEARANCE (NORMAL)
--- NOTE | 2021-12-14 07:30 | PROVIDER PROGRESS NOTE ---
Subjective - Prog Note Date Prog Note Date: 12/14/21 - Subjective Subjective: He states his pain is better controlled. He definitely wants to go home on hospice. Denies dyspnea. is present at bedside. Current Medications - Current Medications Current Medications: Active Medications Acetaminophen (Acetaminophen 325 Mg Tablet) 650 mg PO Q4HR PRN PRN Reason: Pain 1 to 4, or Fever Docusate Sodium (Docusate Sodium 250 Mg Capsule) 250 - 500 mg PO DAILY PRN PRN Reason: Constipation Last Admin: 12/13/21 08:52 Dose: 500 mg Hydromorphone HCl (Hydromorphone 0.5 Mg/0.5 Ml Syringe) 0.5 mg IVP Q2H PRN PRN Reason: Pain 8 to 10 Levofloxacin (Levofloxacin 250 Mg Tablet) 750 mg PO DAILY [facility] Last Admin: 12/14/21 09:39 Dose: 750 mg Multivitamins/Minerals (Multivitamin W/Minerals Tablet) 1 tab PO DAILYWM [facility] Last Admin: 12/14/21 09:30 Dose: Not Given Ondansetron HCl (Ondansetron 4 Mg/2 Ml Vial) 4 mg IVP Q6HR PRN PRN Reason: Nausea / Vomiting Last Admin: 12/11/21 13:41 Dose: 4 mg Oxycodone HCl (Oxycodone 5 Mg Tablet) 10 mg PO Q4HR PRN PRN Reason: PAIN Last Admin: 12/14/21 05:13 Dose: 10 mg Polyethylene Glycol (Polyethylene Glycol 3350 17 Gm Packet) 17 gm PO DAILY [facility] Last Admin: 12/14/21 09:35 Dose: Not Given Senna (Senna 8.6 Mg Tablet) 8.6 - 17.2 mg PO DAILY PRN PRN Reason: Constipation Last Admin: 12/13/21 08:52 Dose: 17.2 mg Sodium Chloride (Sodium Chloride Flush 0.9% 10 Ml Syringe) 10 ml IVP PRN PRN PRN Reason: NEEDED PER PROVIDER ORDERS Sodium Chloride (Sodium Chloride Flush 0.9% 10 Ml Syringe) 10 ml IVP 0100,0900,1700 [facility] Last Admin: 12/14/21 05:28 Dose: 10 ml Valacyclovir HCl [Valtrex] 500 mg PO BID 11/14/21 Objective - Vital Signs/Intake & Output Reviewed Vital Signs: Yes Vital Signs: Vital Signs x48h Temp Pulse Resp BP BP Pulse Ox 12/14/21 05:00 36.8 C 109 H 16 160/80 H 94 12/14/21 00:18 100 16 97 12/13/21 23:46 36.9 C 120 H 18 167/69 H 95 12/13/21 23:43 167/79 H Intake & Output: Intake & Output 12/11/21 12/12/21 12/13/21 12/14/21 23:59 23:59 23:59 23:59 Intake Total 2183.333 3448.334 3040.333 250 Output Total 1270 2475 1945 800 Balance 913.333 435.016 8773.333 -550 - Objective General Appearance: positive: No acute distress, Alert Eyes Bilateral: positive: Normal inspection ENT: positive: ENT inspection nml Respiratory: positive: No respiratory distress. negative: Wheezes, Rales Cardiovascular: negative: Irregularly irregular, Tachycardia, Systolic murmur Abdomen: positive: Non-tender, No distention. negative: Tenderness Skin: positive: Other (Multiple areas of ecchymosis over his extremities.) Extremities: positive: No pedal edema Neurologic/Psychiatric: negative: Disoriented to person, Disoriented to place - Lab Results Fish Bones: 12/14/21 04:42 12/14/21 04:42 Other Labs: Lab Results x24hrs 12/14/21 12/14/21 12/11/21 Range/Units 04:42 04:42 09:09 WBC 2.0 L* (4.8-10.8) x10^3/uL RBC 2.89 L (4.70-6.10) 10^6/uL Hgb 8.7 L (14.0-18.0) g/dL Hct 24.7 L (42.0-52.0) % MCV 85.5 (80.0-94.0) fL MCH 30.1 (27.0-31.0) pg MCHC 35.2 (32.0-36.0) g/dL RDW 16.5 H (12.0-15.0) % Plt Count 43 L (130-450) 10^3/uL MPV 9.2 (7.4-11.4) fL Neut # (Auto) Not Reportable Lymph # (Auto) Not Reportable [place] # (Auto) Not Reportable Eos # (Auto) Not Reportable Baso # (Auto) Not Reportable Absolute Nucleated RBC Not Reportable Total Counted 100 Band Neuts % (Manual) 4 (0 - 10) % Abnorm Lymph % (Manual) 5 % Metamyelocytes % 1 H ( - 0) % Myelocytes % 3 H ( - 0) % Nucleated RBC % Not Reportable Neutrophils # (Manual) 0.8 L (1.5-6.6) 10^3/uL Lymphocytes # (Manual) 1.0 L (1.5-3.5) 10^3/uL Monocytes # (Manual) 0.2 (0.0-1.0) 10^3/uL Eosinophils # (Manual) 0.0 (0-0.7) 10^3/uL Basophils # (Manual) 0.0 (0-0.1) 10^3/uL Differential Comment MANUAL DIFFERENTIAL WBC Morphology NORMAL APPEARANCE (NORMAL) Platelet Estimate DECREASED (<130,000) (NORMAL) Platelet Morphology NORMAL APPEARANCE (NORMAL) RBC Morph Micro Appear 1+ OVALOCYTES (NORMAL) Sodium 139 (135-145) mmol/L Potassium 4.1 (3.5-5.0) mmol/L Chloride 108 (101-111) mmol/L Carbon Dioxide 24 (21-32) mmol/L Anion Gap 7.0 (6-13) BUN 22 H (6-20) mg/dL Creatinine 1.6 H (0.6-1.2) mg/dL Estimated GFR (MDRD) 42 L (>89) Glucose 109 H (70-100) mg/dL Calcium 11.8 H (8.5-10.3) mg/dL Blood Type A POSITIVE Antibody Screen POSITIVE Antibody Identification See Comments TANI, IgG Specific POSITIVE TANI, C3d Specific NEGATIVE Crossmatch See Detail Assessment/Plan - Problem List (1) Sepsis Impression: The concern was for sepsis secondary to a left lower lobe infiltrate. He has been afebrile and his procalcitonin is decreasing. He continues to be leukopenic. We will switch him to oral Levaquin today in preparation for discharge tomorrow. We discussed continuing antibiotics on discharge given he will be going home on hospice but he has not decided if he wants to continue antibiotics or not. The plan is to discharge home tomorrow. (2) Community acquired pneumonia Impression: Concern is for left lower lobe infiltrate and early sepsis given his tachycardia and elevated procalcitonin. He remains on room air and his procalcitonin is decreasing. He is now on Levaquin. We will continue this on discharge to treat for 7 days if he wants to continue antibiotics. Qualifiers: Laterality: left Lung location: lower lobe of lung Qualified Code(s): J18.9 - Pneumonia, unspecified organism (3) Syncope and collapse Impression: This was secondary to acute blood loss anemia. An echocardiogram was not obtained given lack of murmur on exam and the fact that management would not change. Telemetry has been discontinued as he will be going home on hospice and he had been in a sinus rhythm. (4) Multiple myeloma Impression: He unfortunately had relapse of his multiple myeloma and pathology has revealed extensive disease. He unfortunate be a candidate for treatment per oncology and the plan is now to discharge home on hospice tomorrow. Qualifiers: Multiple myeloma remission status: in relapse Qualified Code(s): C90.02 - Multiple myeloma in relapse (5) Thrombocytopenia Impression: This is secondary to the multiple myeloma. He received 2 transfusions during his hospitalization. His platelet count is now above 40. The plan is to discharge home tomorrow. (6) LANCE (acute kidney injury) Impression: His creatinine has slowly improved and is down to 1.6. He has acute kidney injury/chronic kidney disease over the past month due to the multiple myeloma. Plan to discharge on hospice tomorrow. (7) Anemia Impression: He had acute on chronic anemia secondary to blood loss due to hemorrhage from the bone marrow site. He received total 4 units of packed red blood cells. His hemoglobin has since been stable. Plan to discharge home tomorrow on hospice. (8) Hypercalcemia Impression: This is secondary to the multiple myeloma and he remains hypercalcemic with his calcium slowly increasing. He received zoledronic acid little over a week ago when he was previously hospitalized. Plan to discharge home on hospice tomorrow. (9) Back pain Impression: His pain is better controlled with increased dose of oxycodone. We will continue this on discharge and hospice can transition to oral morphine when appropriate. His pain is secondary to the multiple myeloma.
[2021-12-14] MEDS: MULTIVITAMIN W/MINERALS TABLET PO SCH (09:30)
[2021-12-14] MEDS: polyethylene glycoL 3350 17 GM PACKET PO SCH (09:35)
[2021-12-14] MEDS ORDERED: levoFLOXacin 250 MG TABLET PO SCH ×2 (10:00→10:47)
--- NOTE | 2021-12-14 10:20 | CONSULTATION NOTE ---
History - Past Medical History Cardiovascular: reports: None Respiratory: reports: None Neuro: reports: None Endocrine/Autoimmune: reports: None GI: reports: Other : reports: None Psych: reports: None Musculoskeletal: reports: Fatigue, Other Derm: reports: None MRSA Hx?: No Other Past Medical History: Multiple myeloma in relapse. Hx of colon cancer in [facility] - Past Surgical History Ortho: reports: Spine surgery Other past surgical history: Spine surgery, bone marrow biopsy - Family & Social History Family History: Mother: , Cancer, Father: Family History Comment/Other: He reports his mother was relatively healthy although she had a diagnosis of cancer late in her life. She at 97. Living Situation: With spouse/s.o. - Substance History Use: Uses substance without health or social issues: NONE - POLST Patient has POLST: No POLST Status: Full Code Meds/Allgy - Home Medications Home Medications: Ambulatory Orders Medication Instructions Recorded Confirmed Valacyclovir HCl [Valtrex] 500 mg PO BID 11/14/21 12/11/21 oxyCODONE [Roxicodone] 5 mg PO Q6H PRN 15 Days #60 tablet 11/27/21 12/11/21 - Allergies Allergies/Adverse Reactions: Allergies Allergy/AdvReac Type Severity Reaction Status Date / Time No Known Drug Allergies Allergy Verified 12/11/21 08:15 Exam - Vital Signs Vital Signs: Vital Signs x48h Temp Pulse Resp BP Pulse Ox 12/14/21 07:46 36.8 C 107 H 20 137/53 H 96 12/14/21 05:00 36.8 C 109 H 16 160/80 H 94 Conclusion/Plan - Lab Results Lab results reviewed: Yes Fish Bones: 12/14/21 04:42 12/14/21 04:42
[2021-12-14] MEDS: SODIUM CHLORIDE FLUSH 0.9% 10 ML SYRINGE IVP PRN ×2 (11:46→22:36)
[2021-12-15] MEDS: SODIUM CHLORIDE FLUSH 0.9% 10 ML SYRINGE IVP SCH ×2 (00:23→08:47)
[2021-12-15] MEDS: oxyCODONE 5 MG TABLET PO PRN ×2 (06:23→13:33)
[2021-12-15 06:30] LABS: BASOPHILS % (AUTO) 0.6 %; EOSINOPHILS % (AUTO) 1.3 %; HCT - HEMATOCRIT 25.8 % (42.0-52.0); HGB - HEMOGLOBIN 8.9 g/dL (14.0-18.0); LYMPHOCYTES % (AUTO) 24.5 %; MEAN CORPUSCULAR HEMOGLOBIN 30.1 pg (27.0-31.0); MEAN CORPUSCULAR HGB CONC 34.5 g/dL (32.0-36.0); MEAN CORPUSCULAR VOLUME 87.2 fL (80.0-94.0); MONOCYTES % (AUTO) 30.8 %; NEUTROPHILS % (AUTO) 36.5 %; RED BLOOD COUNT 2.96 10^6/uL (4.70-6.10); RED CELL DISTRIBUTION WIDTH 16.4 % (12.0-15.0)
[2021-12-15 06:42] LABS: CREATININE 1.8 mg/dL (0.6-1.2); POTASSIUM 4.3 mmol/L (3.5-5.0)
[2021-12-15 06:44] LABS: PLT - PLATELET COUNT 26 10^3/uL (130-450); WHITE BLOOD COUNT 1.6 x10^3/uL (4.8-10.8)
[2021-12-15 06:45] LABS: ABNORMAL LYMPHS % (MANUAL) 0 %; CALCIUM 12.4 mg/dL (8.5-10.3)
[2021-12-15 07:02] LABS: BAND NEUTROPHILS % (MANUAL) 6 %; DIFFERENTIAL COMMENT MANUAL DIFFERENTIAL; LYMPHOCYTES # (MANUAL) 0.7 10^3/uL (1.5-3.5); LYMPHOCYTES % (MANUAL) 42 %; MONOCYTES # (MANUAL) 0.3 10^3/uL (0.0-1.0); NEUTROPHILS # (MANUAL) 0.6 10^3/uL (1.5-6.6); PLATELET ESTIMATE, MANUAL DECREASED (<130,000) (NORMAL); RBC MORPHOLOGY (MULTIPLE) NORMAL APPEARANCE (NORMAL)
[2021-12-15] MEDS: polyethylene glycoL 3350 17 GM PACKET PO SCH (08:47)
[2021-12-15] MEDS: MULTIVITAMIN W/MINERALS TABLET PO SCH (08:47)
--- NOTE | 2021-12-15 10:54 | DISCHARGE SUMMARY ---
"Discharge Summary Admit Date: 12/11/21 Discharge Date: 12/15/21 Discharging Provider: Pepito Bray Code Status: Do Not Attempt Resuscitation Condition at Discharge: Poor Discharge Disposition: 50 Hospice/Home DC/Xfer - DIAGNOSES Admission Diagnoses: Severe anemia Syncope and collapse Thrombocytopenia Hypercalcemia Multiple myeloma Back pain LANCE Discharge Diagnoses with Status of Each Condition: Community-acquired pneumonia - improved. Syncope and collapse - resolved. Multiple myeloma - ongoing. Thrombocytopenia - ongoing. Neutropenia - ongoing. LANCE - worsening. Anemia - stable. Hypercalcemia - worsening. Back pain - stable. - HPI History of Present Illness: H&P per Dr. Saucedo: 76-year-old male with medical history significant for multiple myeloma in relapse, history of colon cancer in remission who presents today after a syncopal episode at home and bleeding. He had a bone marrow biopsy 3 days ago. There was slight oozing from the site after the procedure but no subsequent bleeding. The patient normally sleeps in the recliner in the living room because he has not been able to go up the stairs to the bedroom since discharge from last admission on 12/06/2021. He woke up this morning to go to the bathroom and passed out. He was being help by his son to the bathroom. His son helped break the fall so he did not hurt himself. The recliner was covered in blood and the shirt he was wearing was soaked in blood. He was brought to the emergency department after the episode. Work-up in the ED included a CBC which showed a hemoglobin of 6.5 and platelet count of 12. The patient has significant bruises all over his body. He is also mildly tachycardic. As a result of this findings he was presented for admission for continued treatment. At bedside he is resting comfortably. He denies chest pain, dyspnea, abdominal pain. He was nauseous. Denies fever or chills. - CONSULTS | PROCEDURES Consultations: Palliative Care, Hospice, Social Work - HOSPITAL COURSE Hospital Course: He was admitted due to syncope which was felt be secondary to the anemia which was acute on chronic. He has chronic anemia secondary to multiple myeloma and had acute blood loss after the bone marrow biopsy. He received total of 4 units of packed red blood cell during his hospitalization. His hemoglobin has since been stable. He did receive platelet transfusion as he was thrombocytopenic and presented with bleeding. There was concern that he may have been developing sepsis given elevated procalcitonin and became tachycardic. X-ray was concerning for possible pneumonia so he was started on vancomycin, cefepime, azithromycin. This was later de-escalated to oral Levaquin as his procalcitonin improved. He started to become neutropenic during his hospitalization but remained afebrile. The biopsy results came back during this hospitalization which revealed severe disease. Palliative care was consulted and discussed with his oncologist who felt that there was no good treatment for his disease. After discussing with palliative care and the patient as well as his family, a decision was made to focus on his comfort and transition to hospice. He is discharged today in a stable but poor condition. Hospice will be admitting this afternoon. We will not be continuing antibiotics on discharge. He will continue his oxycodone and palliative has sent a prescription to his pharmacy for this. - ALLERGIES Allergies/Adverse Reactions: Allergies Allergy/AdvReac Type Severity Reaction Status Date / Time No Known Drug Allergies Allergy Verified 12/11/21 08:15 - MEDICATIONS Home Medications: Ambulatory Orders Medication Instructions Recorded Confirmed oxyCODONE [Roxicodone] 10 mg PO Q4HR PRN tablet 12/15/21 - PHYSICAL EXAM AT DISCHARGE General Appearance: positive: Alert, Mild distress Eyes Bilateral: positive: Normal inspection, Conjunctivae nml ENT: positive: ENT inspection nml Neck: positive: Nml inspection Respiratory: positive: No respiratory distress. negative: Wheezes, Rales Cardiovascular: positive: Tachycardia. negative: Irregularly irregular, Systolic murmur Abdomen: positive: Non-tender, No distention. negative: Tenderness Skin: positive: Warm, Dry, Other (Multiple areas of ecchymosis over his bilateral upper extremities) Extremities: positive: No pedal edema Neurologic/Psychiatric: negative: Disoriented to person, Disoriented to place Physical Exam Other/Comments: Vital Signs - 24 hr 12/14/21 12/15/21 16:25 05:58 Temperature 37.0 C 36.8 C Heart Rate [ 116 H 116 H Brachial] Respiratory 18 17 Rate Blood Pressure 146/92 H [Left Brachial artery] Blood Pressure 149/71 H [Right Brachial artery] O2 Saturation 95 95 Oxygen O2 Source Room air - LABS Result Diagrams: 12/15/21 04:45 07/08/22 04:45 - DIAGNOSTIC IMAGING Diagnostic Imaging Results: Final report reviewed - FOLLOW UP Follow Up: He will be following up with hospice this afternoon. - TIME SPENT Time Spent in Discharge (Minutes): 33"
--- NOTE | 2021-12-15 10:54 | Discharge Plan ---
Discharge Plan Problem Reviewed?: Yes Disposition: 50 Hospice/Home DC/Xfer Condition: Poor Diet: Regular Activity Restrictions: Activity as Tolerated Health Concerns: You were admitted to the hospital because of bleeding from the site of your bone marrow biopsy. You are found to have low blood counts and you are given blood. Your platelet counts were also decreased and you were given platelets. Your biopsy results came back revealing you had significant bone marrow disease due to the multiple myeloma. Palliative care spoke with your oncologist and it was felt that there is unfortunately no good treatment for the severity of disease. A decision was made to then focus on your comfort and to transition to hospice. You will now be discharged home on hospice who will be seeing you later this afternoon. Plan of Treatment: The goal is now to focus on your comfort. You can continue the oxycodone as needed for pain. Hospice will manage your pain going forward and can adjust medications as necessary. Care Goals: The goal is now to focus on your comfort and manage your pain. Assessment: Patient and family expressed understanding of the treatment plan. Additional Instructions or Follow Up instructions: Please follow-up with hospice this afternoon. Follow-Up Care: Hospice No Smoking: If you smoke, Please STOP! Call for help.
--- NOTE | 2021-12-15 11:04 | CONSULTATION NOTE ---
Palliative Care Follow Up - Referral Referring Provider: Dr. Bray Time of Visit: 0930-10:00; 10:45-11 Referral setting: Hospitalized patient Referral Reason: Relapsed Multiple Myeloma/Goals of Care - Information Sources Records reviewed: Previous records reviewed History/Review of Systems obtained from: Patient, Family ( Kiara) - History of Present Illness Update Brief HPI Update: This is a 68-year-old gentleman with relapsed multiple myeloma, with acute hospitalization secondary to acute bleed 7/ at the bone marrow site, and o ngoing worsening pancytopenia. Results of bone marrow showed plasma cell neoplasm representing plasma cells, and follow-up with oncology and deteriorating counts, patient has refractory disease and most likely any treatment offered would be futile. Patient is chosen given his poor prognosis, to transition to hospice and a at home. is appropriately anxious, but is now looking forward to being at home, hospice support to start this evening after discharge. Palliative care meeting with patient and . First meeting with to address concerns and ongoing anxiety, reassured regarding that transition to hospice, symptom management. We will go ahead and order medications to have available, did discussed the role of the POLST, goal is for a comfortable respectful at home with family support. DN AR and comfort focused care. Patient signed this on second meeting when awake and alert. Past Medical History: Original diagnosis was in 2019, has a history of colon cancer in remission, history of pelvic abscess recently drained, and now healed. Known soft tissue mass related to relapsed myeloma on right ribs. Recurrent hypercalcemia, recur rent acute kidney injury, persistent anemia thrombocytopenia and neutropenia. Social History - Living Situation Living arrangement: At home Living Situation: With spouse/s.o. Support System: Patient is retired, lives at home with his paul Marilyn Vincent, they have 1 son who is been actively involved. They have spent to their retired life commuting between [place] and [facility]. Much discussion in the context of transitioning to every setting for end-of-life care, feels would be Please distractive to not have to travel long distances, particularly for their son who does want to participate.Agreement and transition home Medications/Allergies - Medications Active Medication List: Active Medications Acetaminophen (Acetaminophen 325 Mg Tablet) 650 mg PO Q4HR PRN PRN Reason: Pain 1 to 4, or Fever Docusate Sodium (Docusate Sodium 250 Mg Capsule) 250 - 500 mg PO DAILY PRN PRN Reason: Constipation Last Admin: 12/13/21 08:52 Dose: 500 mg Hydromorphone HCl (Hydromorphone 0.5 Mg/0.5 Ml Syringe) 0.5 mg IVP Q2H PRN PRN Reason: Pain 8 to 10 Last Admin: 12/14/21 22:35 Dose: 0.5 mg Levofloxacin (Levofloxacin 250 Mg Tablet) 750 mg PO Q48H [facility] Multivitamins/Minerals (Multivitamin W/Minerals Tablet) 1 tab PO DAILYWM [facility] Last Admin: 12/15/21 08:47 Dose: 1 tab Ondansetron HCl (Ondansetron 4 Mg/2 Ml Vial) 4 mg IVP Q6HR PRN PRN Reason: Nausea / Vomiting Last Admin: 12/11/21 13:41 Dose: 4 mg Oxycodone HCl (Oxycodone 5 Mg Tablet) 10 mg PO Q4HR PRN PRN Reason: PAIN Last Admin: 12/15/21 06:23 Dose: 10 mg Polyethylene Glycol (Polyethylene Glycol 3350 17 Gm Packet) 17 gm PO DAILY [facility] Last Admin: 12/15/21 08:47 Dose: 17 gm Senna (Senna 8.6 Mg Tablet) 8.6 - 17.2 mg PO DAILY PRN PRN Reason: Constipation Last Admin: 12/13/21 08:52 Dose: 17.2 mg Sodium Chloride (Sodium Chloride Flush 0.9% 10 Ml Syringe) 10 ml IVP PRN PRN PRN Reason: NEEDED PER PROVIDER ORDERS Last Admin: 12/14/21 22:36 Dose: 10 ml Sodium Chloride (Sodium Chloride Flush 0.9% 10 Ml Syringe) 10 ml IVP 0100,0900,1700 [facility] Last Admin: 12/15/21 08:47 Dose: 10 ml Valacyclovir HCl [Valtrex] 500 mg PO BID 11/14/21 - Allergies Allergies/Adverse Reactions: Allergies Allergy/AdvReac Type Severity Reaction Status Date / Time No Known Drug Allergies Allergy Verified 12/11/21 08:15 Review of Systems - Constitutional Constitutional: reports: Fatigue, Weakness, Poor appetite, Weight loss (190 with healthy weight/ 176) - Ears, Nose & Throat Ears, Nose & Throat: reports: Dry mouth - Cardiovascular Cardiovascular: reports: Lightheadedness, Exertional dyspnea, Decr. exercise tolerance. denies: Edema - Respiratory Respiratory: reports: SOB with exertion. denies: SOB at rest - Gastrointestinal Gastrointestinal: reports: Poor appetite, Early satiety - Genitourinary Genitourinary: reports: Frequency - Musculoskeletal Musculoskeletal: reports: Back pain, Muscle aches, Stiffness, Muscle weakness, Other (patient has been bedbound during hospitalization) - Integumentary Integumentary: reports: Dryness - Neurological Neurological: reports: General weakness, Memory problems (mild STM) - Psychiatric Psychiatric: reports: Anxiety (appears more relaxed today). denies: Depression - Hematologic/Lymphatic Hematologic/Lymph: reports: Anemia (receiving transfusion currently), Bruising, Recurrent infections (now presents with suspected pneumonia; treated with antibiotics; neutropenia worsening) - All Other Systems All Other Systems: reports: Reviewed and negative Physical Exam - Vital Signs Vital Signs: Vital Signs x48h Temp Pulse Resp BP Pulse Ox 12/15/21 05:58 36.8 C 116 H 17 149/71 H 95 - Physical Exam General Appearance: positive: Lethargic Eyes Bilateral: positive: Normal inspection ENT: positive: No signs of dehydration Neck: positive: Trachea midline Respiratory: positive: No respiratory distress Abdomen: positive: Soft Skin: positive: Pallor, Dryness Extremities: positive: No pedal edema Neurologic/Psychiatric: positive: Oriented x3, Depressed mood/affect, Flat affect Palliative Care - POLST Patient has POLST: Yes POLST Status: DNR, Comfort Measures (completed and signed for transfer) - Palliative Care Discussion: . reports she and her son were able to arrange to get everything ready for patient's transition home today. She is feeling more positive about this, is concerned and somewhat anxious. Reassured hospice handoff and instructions will be of good layer support for her. Discussed the role of the POLST, allowing paramedics to provide support but no transport if in urgent/acute situation. Hospice so will be the first line of "911". Reviewed with patient goals of care, which is to return home for end-of-life, with goal to have a comfortable respectful . Prognosis is poor, both patient and aware of short life expectancy. reports patient had very up in good afternoon/evening last night with his son. Patient is more lethargic and sleepy today. But seems fairly peaceful and comfortable, feels questions answered and comfortable with plan in place. POLST completed with patient. Results - Lab Results Lab results reviewed: Yes Fish Bones: 12/15/21 04:45 12/15/21 04:45 Lab and Imaging Results: Lab Results x24hrs 12/15/21 12/15/21 Range/Units 04:45 04:45 WBC 1.6 L* (4.8-10.8) x10^3/uL RBC 2.96 L (4.70-6.10) 10^6/uL Hgb 8.9 L (14.0-18.0) g/dL Hct 25.8 L (42.0-52.0) % MCV 87.2 (80.0-94.0) fL MCH 30.1 (27.0-31.0) pg MCHC 34.5 (32.0-36.0) g/dL RDW 16.4 H (12.0-15.0) % Plt Count 26 L* (130-450) 10^3/uL MPV 9.0 (7.4-11.4) fL Neut # (Auto) Not Reportable Lymph # (Auto) Not Reportable [place] # (Auto) Not Reportable Eos # (Auto) Not Reportable Baso # (Auto) Not Reportable Absolute Nucleated RBC Not Reportable Total Counted 50 Band Neuts % (Manual) 6 (0 - 10) % Abnorm Lymph % (Manual) 0 % Nucleated RBC % Not Reportable Neutrophils # (Manual) 0.6 L (1.5-6.6) 10^3/uL Lymphocytes # (Manual) 0.7 L (1.5-3.5) 10^3/uL Monocytes # (Manual) 0.3 (0.0-1.0) 10^3/uL Eosinophils # (Manual) 0.0 (0-0.7) 10^3/uL Basophils # (Manual) 0.0 (0-0.1) 10^3/uL Differential Comment MANUAL DIFFERENTIAL Platelet Estimate DECREASED (<130,000) (NORMAL) RBC Morph Micro Appear NORMAL APPEARANCE (NORMAL) Sodium 141 (135-145) mmol/L Potassium 4.3 (3.5-5.0) mmol/L Chloride 106 (101-111) mmol/L Carbon Dioxide 25 (21-32) mmol/L Anion Gap 10.0 (6-13) BUN 24 H (6-20) mg/dL Creatinine 1.8 H (0.6-1.2) mg/dL Estimated GFR (MDRD) 37 L (>89) Glucose 121 H (70-100) mg/dL Calcium 12.4 H* (8.5-10.3) mg/dL Impression and Recommendations - Palliative Care Impression: This is a 76-year-old gentleman with multiple myeloma, now presenting with bone marrow failure, transfusion dependent, declining functional status and increasing symptom burden. Patient pending discharge this afternoon, with transition to hospice and comfort measures. Palliative care providing coordination of care and support. Recommendations/Counseling Done: 1. Pain of neoplastic origin. Patient doing well on oxycodone 10 mg every 4 hours as needed, did order morphine 0.25 mils equals 5 mg, 30 mill bottle at [facility] for family to pear picker for her when transitions to no longer able to swallow. We will continue with oxycodone secondary to worsening kidney failure, but will need alternative route at end-of-life. 2. Advance care planning. Ordered also preferred medication with hospice Zyprexa 5 mg 1 tab as needed for terminal agitation, lorazepam 0.5 mg every 6 hours as needed for anxiety. Completed POLST with DN AR/DNI and comfort focused care, as well as coordination of care with hospitalist and discharge planning. Equipment to be delivered between 12 and 2, making arrangements for BLS transfer between 2 and 3. to pear picker prescription family to pear picker prescriptions at [facility] to have available for teaching for hospice nurse who is scheduled around 4:30 PM. Continue to address questions and concerns, provide psychosocial support for patient and , and coordination of care. 45 minutes with Greater than 50% provided in counseling regarding pain and symptom management, anticipatory guidance regarding end-of-life, coordination of care with hospital team and hospice
[2021-12-15 13:41] VITALS: BP 142/70
[2021-12-16] MEDS ORDERED: levoFLOXacin 250 MG TABLET PO SCH (09:00)
== END 2021-12-15 13:22 | disposition hospice, home (50) | DRG 919 ==
LOC: EDUNIT# → ED 07:58 → MS2 12:21 → OBSVTOIN 12-12 07:28
PROVIDERS: ADMIT Internal Medicine; ATTEND Internal Medicine
PROC: 30233N1 Transfusion of Nonautologous Red Blood Cells into Peripheral Vein, Percutaneous Approach (ICD-10-PCS; principal; 2021-12-12)
PROC: 30233R1 Transfusion of Nonautologous Platelets into Peripheral Vein, Percutaneous Approach (ICD-10-PCS; 2021-12-13)
DX: M96.830 Postprocedural hemorrhage of a musculoskeletal structure following a musculoskeletal system procedure (principal); J18.9 Pneumonia, unspecified organism; D62 Acute posthemorrhagic anemia; C90.00 Multiple myeloma not having achieved remission; N17.9 Acute kidney failure, unspecified; C90.02 Multiple myeloma in relapse; D63.0 Anemia in neoplastic disease; D69.6 Thrombocytopenia, unspecified; Z20.822 Contact with and (suspected) exposure to COVID-19; D70.9 Neutropenia, unspecified; Y84.8 Other medical procedures as the cause of abnormal reaction of the patient, or of later complication, without mention of misadventure at the time of the procedure; E83.52 Hypercalcemia; G89.3 Neoplasm related pain (acute) (chronic); L85.3 Xerosis cutis; F41.9 Anxiety disorder, unspecified; Z66 Do not resuscitate; Z80.9 Family history of malignant neoplasm, unspecified; Z85.038 Personal history of other malignant neoplasm of large intestine; Z92.21 Personal history of antineoplastic chemotherapy
CPT/HCPCS: 36415; 36430; 71045; 80048; 80053; 81003; 81599; 83690; 84145; 84484; 85025; 85610; 86850; 86870; 86880; 86900; 86901; 86922; 87040; 87633; 93005; 96374; 96375; 99231; 99283; 99285; A9270; J1170; J3370; P9037; P9040; 81001; 87086